=== PATIENT | female | born 1950 | race Caucasian/White ===

== ENCOUNTER 2016-06-19 16:10 | Observation (INO) ==
--- NOTE | 2016-06-19 17:17 | Emergency Department Note ---
Disposition Clinical Impression: Lower extremity edema, Hip pain, left Disposition: Still a Patient Referrals: Nydia Goodrich, DONOR TECHNICIAN [Primary Care Provider] - Forms: ED Satisfaction Letter General Adult HPI - General Chief complaint: ED Extremity Problem,Nontraumatic Stated complaint: left hip pain Time Seen by Provider: 06/19/16 16:24 Source: patient Limitations: no limitations Nursing Notes Reviewed: Yes Vital Signs Reviewed: Yes - History of Present Illness Pain Scale: 10 - Related Data Home Medications Medication Instructions Recorded Confirmed ClonazePAM [Klonopin] 1 mg PO HS 05/09/15 03/27/16 Diltiazem HCl [Diltiazem 24Hr Cd] 120 mg PO QAM 05/09/15 03/27/16 Esomeprazole Magnesium [Nexium] 40 mg PO QAM 05/09/15 03/27/16 Fenofibrate [Tricor] 145 mg PO DAILY 05/09/15 03/27/16 Furosemide [Lasix] 20 mg PO DAILY 05/09/15 03/27/16 Levothyroxine [Synthroid] 25 mcg PO 0630 05/09/15 03/27/16 Lisinopril [Zestril] 5 mg PO DAILY 05/09/15 03/27/16 Potassium Chloride 20 meq PO DAILY 05/09/15 03/27/16 Warfarin [Coumadin] 5 mg PO DAILY 09/04/15 03/27/16 Bupropion HCl [Zyban] 150 mg PO BID 09/21/15 03/27/16 Docusate [Colace] 100 mg PO BID 09/21/15 03/27/16 Duloxetine [Cymbalta] 30 mg PO DAILY 09/21/15 03/27/16 Lovastatin 10 mg PO DAILY 09/21/15 03/27/16 Tizanidine HCl [Zanaflex] 4 mg PO HS 09/21/15 03/27/16 Previous Rx's Medication Instructions Recorded Methocarbamol [Robaxin-750] 750 mg PO TID PRN #21 tablet 09/22/15 Oxycodone HCl/Acetaminophen 1 each PO 4-6XD PRN #15 tablet 03/28/16 [Percocet 5-325 mg Tablet] Allergies Allergy/AdvReac Type Severity Reaction Status Date / Time Sulfa (Sulfonamide Allergy Mild Rash Verified 03/24/16 13:39 Antibiotics) acetaminophen [From Vicodin] Allergy Rash Verified 03/27/16 20:08 atorvastatin [From Lipitor] Allergy Hives Verified 03/24/16 13:39 codeine Allergy Hives Verified 03/24/16 13:39 hydrocodone [From Vicodin] Allergy Rash Verified 03/27/16 20:08 morphine Allergy Hives Verified 03/24/16 13:39 nitrofurantoin Allergy Hives Verified 03/24/16 13:39 [From Macrobid] phenazopyridine Allergy Hives Verified 03/24/16 13:39 [From Pyridium] Past Medical History - Past Medical History Medical history: Reports: atrial fibrillation, COPD, diabetes, hyperlipidemia, hypertension, thyroid disease, TIA Surgical history: Reports: appendectomy, cholecystectomy, ROBERTO/BSO, other Psychiatric history: Reports: anxiety, depression PRESSED OR BLOWN GLASS WORKER history: Reports: no PRESSED OR BLOWN GLASS WORKER history - Social History Smoking Status: Never smoker Smokeless Tobacco Status: No Alcohol use: Reports: none Drug use: Reports: none Physical Exam - General Limitations: no limitations General appearance: alert, in no apparent distress Course Vital Signs Temperature 99.5 F 06/19/16 16:13 Pulse Rate 86 06/19/16 16:13 Respiratory Rate 16 06/19/16 16:13 Blood Pressure 132/55 06/19/16 16:13 O2 Sat by Pulse Oximetry 96 06/19/16 16:13 Temperature 99.5 F 06/19/16 16:13 Pulse Rate 92 06/19/16 18:04 Respiratory Rate 16 06/19/16 18:04 Blood Pressure 138/70 06/19/16 18:04 O2 Sat by Pulse Oximetry 97 06/19/16 18:04 Oxygen Delivery Oxygen Delivery Room Air Medical Decision Making - MDM Narrative Medical decision making narrative: I examined this patient and my medical decision-making was reviewed with the TREE FALLER/PA/Advanced Practice Nurse/Resident Physician. I agree with the documented findings, disposition and treatment plan as described except to the extent set forth below. Patient presents with left hip and groin pain. 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 She says she has circumflex pain going up into her groin. She had no falls. She has had no trauma. She has no calf tenderness. No abdominal pain. Ordering x-rays and if that is negative a CT of her hip check lab work and then reassess. Give her something for pain. She is in agreement with this plan. Hip X-Ray 06/19/16 16:34 IMPRESSION: Left hip arthroplasty without appreciable change. No acute findings identified. D/ / 06/19/2016 17:09:36 Sanchez Melgar MD / Mikaela Banks Interpreting Provider: Sanchez Melgar MD 1830 hrs.: Initial x-rays are negative. She has quite a bit of pain in the area and do not see signs of cellulitis no redness no perineal tenderness or redness. She has no discharge from the vagina she has no bleeding in the area or from the rectum. She has tenderness with log rolling the left leg and thigh. Also some inflammation in that area vertigo had in and get a CT of the area and check lab work on her also. We will most likely sign her out to the evening ER staff for further evaluation and management. Most likely she will need admission. 1835 hrs.: We reviewed her labs her GFR is 42 we have decided to hold off on the contrast CT and it is a noncontrast period and then if later on we decided that she needs contrast we can make sure decision-making with the patient. She is getting IV hydration. Her labs are returning. It appears that she has an inflammatory or infectious process. Waiting on noncontrast CT at this point. We will sign this patient out to the evening ER physician for further management and disposition. - Lab Data Result diagrams: 06/19/16 17:52 06/19/16 17:52 Lab Results 06/19/16 06/19/16 06/19/16 Range/Units 17:52 17:52 17:52 WBC 12.4 H (4.3-11.1) K/mcL RBC 3.90 (3.82-4.97) M/mcL Hgb 11.2 L (11.5-15.4) g/dL Hct 34.7 L (35.3-44.9) % MCV 89.0 (83.0-100.0) fL MCH 28.7 (28.0-33.3) pg MCHC 32.3 (31.6-35.5) g/dL RDW 14.0 (11.5-14.5) % Plt Count 334 (140-400) K/mcL MPV 10.6 (9.4-12.4) fL Immature Gran % 0.6 (0-4) % Seg Neutrophils % 73.3 % Lymphocytes % 15.0 % Monocytes % 8.4 % Eosinophils % 2.1 % Basophils % 0.6 % Neutrophils # 9.1 H (1.6-8.9) K/mcL Lymphocytes # 1.9 (0.6-4.6) K/mcL Monocytes # 1.1 (0.0-1.3) K/mcL Eosinophils # 0.3 (0.0-0.6) K/mcL Basophils # 0.1 (0.0-0.2) K/mcL ESR 44 H (0-15) mm/hr Sodium 140 (136-145) mEq/L Potassium 3.7 (3.5-4.5) mEq/L Chloride 107 (98-109) mEq/L Carbon Dioxide 22 (19-29) mEq/L BUN 23 H (7-20) mg/dL Creatinine 1.26 H (0.57-1.11) mg/dL Est GFR ( Amer) 51 L (> 60) Est GFR (Non-Af Amer) 42 L (> 60) BUN/Creatinine Ratio 18 (6-26) Glucose 93 (70-99) mg/dL Calculated Osmolality 293 (280-300) Uric Acid (2.6-6.0) mg/dL Calcium 9.2 (8.6-10.8) mg/dL C-Reactive Protein 32 H (Less than 5) mg/L 06/19/16 Range/Units 17:52 WBC (4.3-11.1) K/mcL RBC (3.82-4.97) M/mcL Hgb (11.5-15.4) g/dL Hct (35.3-44.9) % MCV (83.0-100.0) fL MCH (28.0-33.3) pg MCHC (31.6-35.5) g/dL RDW (11.5-14.5) % Plt Count (140-400) K/mcL MPV (9.4-12.4) fL Immature Gran % (0-4) % Seg Neutrophils % % Lymphocytes % % Monocytes % % Eosinophils % % Basophils % % Neutrophils # (1.6-8.9) K/mcL Lymphocytes # (0.6-4.6) K/mcL Monocytes # (0.0-1.3) K/mcL Eosinophils # (0.0-0.6) K/mcL Basophils # (0.0-0.2) K/mcL ESR (0-15) mm/hr Sodium (136-145) mEq/L Potassium (3.5-4.5) mEq/L Chloride (98-109) mEq/L Carbon Dioxide (19-29) mEq/L BUN (7-20) mg/dL Creatinine (0.57-1.11) mg/dL Est GFR ( Amer) (> 60) Est GFR (Non-Af Amer) (> 60) BUN/Creatinine Ratio (6-26) Glucose (70-99) mg/dL Calculated Osmolality (280-300) Uric Acid 6.6 H (2.6-6.0) mg/dL Calcium (8.6-10.8) mg/dL C-Reactive Protein (Less than 5) mg/L
[2016-06-19] MEDS ORDERED: *HR* HYDROmorphone (PF) 1 MG/ML SYRINGE IV ONE ×2 (17:37→19:16)
[2016-06-19 18:10] LABS: Basophils # 0.1 K/mcL (0.0-0.2); Basophils % 0.6 %; Eosinophils # 0.3 K/mcL (0.0-0.6); Eosinophils % 2.1 %; Hematocrit 34.7 % (35.3-44.9); Hemoglobin 11.2 g/dL (11.5-15.4); Immature Granulocytes % 0.6 % (0-4); Lymphocytes # 1.9 K/mcL (0.6-4.6); Mean Corpuscular HGB Conc 32.3 g/dL (31.6-35.5); Mean Corpuscular Hemoglobin 28.7 pg (28.0-33.3); Mean Platelet Volume 10.6 fL (9.4-12.4); Monocytes # 1.1 K/mcL (0.0-1.3); Monocytes % 8.4 %; Neutrophils # 9.1 K/mcL (1.6-8.9); Platelet Count 334 K/mcL (140-400); Segmented Neutrophils % 73.3 %
--- NOTE | 2016-06-19 18:16 | Emergency Department Note ---
Disposition Clinical Impression: Lower extremity edema, Hip pain, left Disposition: Still a Patient Referrals: Nydia Goodrich, DEREK [Primary Care Provider] - Forms: ED Satisfaction Letter Extremity Problem HPI - General Chief complaint: ED Extremity Problem,Nontraumatic Stated complaint: left hip pain Time Seen by Provider: 06/19/16 16:24 Source: patient Limitations: no limitations Nursing Notes Reviewed: Yes Vital Signs Reviewed: Yes - History of Present Illness HPI Narrative: Patient here for evaluation of left hip pain. Patient has a previous history of hip replacement by Dr. Yeager on the left. Patient has had swelling on that side intermittently since the replacement. Patient awoke today with severe hip pain. Patient states no recent trauma. No recent URI. Patient with inability to move leg or bear weight. Patient's right lower leg is edematous with concern for erythema. Patient is unconcerned with this leg as she states it is like this in the past. Patient does have DVT on that side and is taking Coumadin. Pain Scale: 8 - Related Data Home Medications Medication Instructions Recorded Confirmed ClonazePAM [Klonopin] 1 mg PO HS 05/09/15 03/27/16 Diltiazem HCl [Diltiazem 24Hr Cd] 120 mg PO QAM 05/09/15 03/27/16 Esomeprazole Magnesium [Nexium] 40 mg PO QAM 05/09/15 03/27/16 Fenofibrate [Tricor] 145 mg PO DAILY 05/09/15 03/27/16 Furosemide [Lasix] 20 mg PO DAILY 05/09/15 03/27/16 Levothyroxine [Synthroid] 25 mcg PO 0630 05/09/15 03/27/16 Lisinopril [Zestril] 5 mg PO DAILY 05/09/15 03/27/16 Potassium Chloride 20 meq PO DAILY 05/09/15 03/27/16 Warfarin [Coumadin] 5 mg PO DAILY 09/04/15 03/27/16 Bupropion HCl [Zyban] 150 mg PO BID 09/21/15 03/27/16 Docusate [Colace] 100 mg PO BID 09/21/15 03/27/16 Duloxetine [Cymbalta] 30 mg PO DAILY 09/21/15 03/27/16 Lovastatin 10 mg PO DAILY 09/21/15 03/27/16 Tizanidine HCl [Zanaflex] 4 mg PO HS 09/21/15 03/27/16 Previous Rx's Medication Instructions Recorded Methocarbamol [Robaxin-750] 750 mg PO TID PRN #21 tablet 09/22/15 Oxycodone HCl/Acetaminophen 1 each PO 4-6XD PRN #15 tablet 03/28/16 [Percocet 5-325 mg Tablet] Allergies Allergy/AdvReac Type Severity Reaction Status Date / Time Sulfa (Sulfonamide Allergy Mild Rash Verified 03/24/16 13:39 Antibiotics) acetaminophen [From Vicodin] Allergy Rash Verified 03/27/16 20:08 atorvastatin [From Lipitor] Allergy Hives Verified 03/24/16 13:39 codeine Allergy Hives Verified 03/24/16 13:39 hydrocodone [From Vicodin] Allergy Rash Verified 03/27/16 20:08 morphine Allergy Hives Verified 03/24/16 13:39 nitrofurantoin Allergy Hives Verified 03/24/16 13:39 [From Macrobid] phenazopyridine Allergy Hives Verified 03/24/16 13:39 [From Pyridium] Constitutional: Denies: fever, chills Eyes: Denies: eye pain ENT ED: Denies: ear pain Cardiovascular: Denies: chest pain Respiratory: Denies: cough, dyspnea Gastrointestinal: Denies: abdominal pain, nausea Genitourinary: Denies: urgency, dysuria Musculoskeletal: Reports: arthralgia (left hip). Denies: back pain Integumentary: Reports: lesions (right leg). Denies: rash, abrasion Neurological: Reports: weakness. Denies: headache Psychiatric: Denies: anxiety Endocrine: Denies: fatigue Past Medical History - Past Medical History Medical history: Reports: atrial fibrillation, COPD, diabetes, hyperlipidemia, hypertension, thyroid disease, TIA Surgical history: Reports: appendectomy, cholecystectomy, ROBERTO/BSO, other Psychiatric history: Reports: anxiety, depression HEALTH EQUIPMENT SERVICER history: Reports: no HEALTH EQUIPMENT SERVICER history - Social History Smoking Status: Never smoker Smokeless Tobacco Status: No Alcohol use: Reports: none Drug use: Reports: none Physical Exam - General Limitations: no limitations General appearance: alert, in no apparent distress - Head Head exam: atraumatic, normocephalic - Eye Eye exam: Present: normal appearance, PERRL - ENT ENT exam: normal exam, normal oropharynx - Neck Neck exam: Present: normal inspection - Chest Chest inspection: Present: normal inspection, symmetric chest wall rise - Respiratory Respiratory exam: Absent: respiratory distress - Abdominal Exam Abdominal exam: Present: soft, Non-Tender. Absent: guarding, rebound, rigidity - Extremities Exam Extremities exam: Present: other (Left leg with swelling in the hip and thigh. Patient with significant tenderness to palpation of both the inner groin and the greater trochanter. Patient has pain with log roll. Patient has pain with any passive or active range of motion. Right leg lower aspect with edema; concern for erythema and known DVT) Course - Reevaluation(s) Reevaluation #1: Patient signed out to the night team. Vital Signs Temperature 99.5 F 06/19/16 16:13 Pulse Rate 86 06/19/16 16:13 Respiratory Rate 16 06/19/16 16:13 Blood Pressure 132/55 06/19/16 16:13 O2 Sat by Pulse Oximetry 96 06/19/16 16:13 Temperature 99.5 F 06/19/16 16:13 Pulse Rate 92 06/19/16 18:04 Respiratory Rate 16 06/19/16 18:04 Blood Pressure 138/70 06/19/16 18:04 O2 Sat by Pulse Oximetry 97 06/19/16 18:04 Oxygen Delivery Oxygen Delivery Room Air Extremity Problem, Nontraumati - Lab Data Result diagrams: 06/19/16 17:52 06/19/16 17:52 Lab Results 06/19/16 06/19/16 06/19/16 Range/Units 17:52 17:52 17:52 WBC 12.4 H (4.3-11.1) K/mcL RBC 3.90 (3.82-4.97) M/mcL Hgb 11.2 L (11.5-15.4) g/dL Hct 34.7 L (35.3-44.9) % MCV 89.0 (83.0-100.0) fL MCH 28.7 (28.0-33.3) pg MCHC 32.3 (31.6-35.5) g/dL RDW 14.0 (11.5-14.5) % Plt Count 334 (140-400) K/mcL MPV 10.6 (9.4-12.4) fL Immature Gran % 0.6 (0-4) % Seg Neutrophils % 73.3 % Lymphocytes % 15.0 % Monocytes % 8.4 % Eosinophils % 2.1 % Basophils % 0.6 % Neutrophils # 9.1 H (1.6-8.9) K/mcL Lymphocytes # 1.9 (0.6-4.6) K/mcL Monocytes # 1.1 (0.0-1.3) K/mcL Eosinophils # 0.3 (0.0-0.6) K/mcL Basophils # 0.1 (0.0-0.2) K/mcL ESR 44 H (0-15) mm/hr Sodium 140 (136-145) mEq/L Potassium 3.7 (3.5-4.5) mEq/L Chloride 107 (98-109) mEq/L Carbon Dioxide 22 (19-29) mEq/L BUN 23 H (7-20) mg/dL Creatinine 1.26 H (0.57-1.11) mg/dL Est GFR ( Amer) 51 L (> 60) Est GFR (Non-Af Amer) 42 L (> 60) BUN/Creatinine Ratio 18 (6-26) Glucose 93 (70-99) mg/dL Calculated Osmolality 293 (280-300) Uric Acid (2.6-6.0) mg/dL Calcium 9.2 (8.6-10.8) mg/dL C-Reactive Protein 32 H (Less than 5) mg/L 06/19/16 Range/Units 17:52 WBC (4.3-11.1) K/mcL RBC (3.82-4.97) M/mcL Hgb (11.5-15.4) g/dL Hct (35.3-44.9) % MCV (83.0-100.0) fL MCH (28.0-33.3) pg MCHC (31.6-35.5) g/dL RDW (11.5-14.5) % Plt Count (140-400) K/mcL MPV (9.4-12.4) fL Immature Gran % (0-4) % Seg Neutrophils % % Lymphocytes % % Monocytes % % Eosinophils % % Basophils % % Neutrophils # (1.6-8.9) K/mcL Lymphocytes # (0.6-4.6) K/mcL Monocytes # (0.0-1.3) K/mcL Eosinophils # (0.0-0.6) K/mcL Basophils # (0.0-0.2) K/mcL ESR (0-15) mm/hr Sodium (136-145) mEq/L Potassium (3.5-4.5) mEq/L Chloride (98-109) mEq/L Carbon Dioxide (19-29) mEq/L BUN (7-20) mg/dL Creatinine (0.57-1.11) mg/dL Est GFR ( Amer) (> 60) Est GFR (Non-Af Amer) (> 60) BUN/Creatinine Ratio (6-26) Glucose (70-99) mg/dL Calculated Osmolality (280-300) Uric Acid 6.6 H (2.6-6.0) mg/dL Calcium (8.6-10.8) mg/dL C-Reactive Protein (Less than 5) mg/L
[2016-06-19 18:22] LABS: Calcium 9.2 mg/dL (8.6-10.8); Potassium 3.7 mEq/L (3.5-4.5)
--- NOTE | 2016-06-19 19:17 | Emergency Department Note ---
Disposition Clinical Impression: Lower extremity edema, Hip pain, left Disposition: Still a Patient Referrals: Nydia Goodrich, SKI PRODUCTION SUPERVISOR [Primary Care Provider] - Forms: ED Satisfaction Letter General Adult HPI - General Chief complaint: ED Extremity Problem,Nontraumatic Stated complaint: left hip pain Time Seen by Provider: 06/19/16 16:24 Source: patient Limitations: no limitations - History of Present Illness Pain Scale: 8 - Related Data Home Medications Medication Instructions Recorded Confirmed ClonazePAM [Klonopin] 1 mg PO HS 05/09/15 03/27/16 Diltiazem HCl [Diltiazem 24Hr Cd] 120 mg PO QAM 05/09/15 03/27/16 Esomeprazole Magnesium [Nexium] 40 mg PO QAM 05/09/15 03/27/16 Fenofibrate [Tricor] 145 mg PO DAILY 05/09/15 03/27/16 Furosemide [Lasix] 20 mg PO DAILY 05/09/15 03/27/16 Levothyroxine [Synthroid] 25 mcg PO 0630 05/09/15 03/27/16 Lisinopril [Zestril] 5 mg PO DAILY 05/09/15 03/27/16 Potassium Chloride 20 meq PO DAILY 05/09/15 03/27/16 Warfarin [Coumadin] 5 mg PO DAILY 09/04/15 03/27/16 Bupropion HCl [Zyban] 150 mg PO BID 09/21/15 03/27/16 Docusate [Colace] 100 mg PO BID 09/21/15 03/27/16 Duloxetine [Cymbalta] 30 mg PO DAILY 09/21/15 03/27/16 Lovastatin 10 mg PO DAILY 09/21/15 03/27/16 Tizanidine HCl [Zanaflex] 4 mg PO HS 09/21/15 03/27/16 Previous Rx's Medication Instructions Recorded Methocarbamol [Robaxin-750] 750 mg PO TID PRN #21 tablet 09/22/15 Oxycodone HCl/Acetaminophen 1 each PO 4-6XD PRN #15 tablet 03/28/16 [Percocet 5-325 mg Tablet] Allergies Allergy/AdvReac Type Severity Reaction Status Date / Time Sulfa (Sulfonamide Allergy Mild Rash Verified 03/24/16 13:39 Antibiotics) acetaminophen [From Vicodin] Allergy Rash Verified 03/27/16 20:08 atorvastatin [From Lipitor] Allergy Hives Verified 03/24/16 13:39 codeine Allergy Hives Verified 03/24/16 13:39 hydrocodone [From Vicodin] Allergy Rash Verified 03/27/16 20:08 morphine Allergy Hives Verified 03/24/16 13:39 nitrofurantoin Allergy Hives Verified 03/24/16 13:39 [From Macrobid] phenazopyridine Allergy Hives Verified 03/24/16 13:39 [From Pyridium] Constitutional: Denies: fever, chills Eyes: Denies: eye pain ENT ED: Denies: ear pain Cardiovascular: Denies: chest pain Respiratory: Denies: cough, dyspnea Gastrointestinal: Denies: abdominal pain, nausea Genitourinary: Denies: urgency, dysuria Musculoskeletal: Reports: arthralgia (left hip). Denies: back pain Integumentary: Reports: lesions (right leg). Denies: rash, abrasion Neurological: Reports: weakness. Denies: headache Psychiatric: Denies: anxiety Endocrine: Denies: fatigue Past Medical History - Past Medical History Medical history: Reports: atrial fibrillation, COPD, diabetes, hyperlipidemia, hypertension, thyroid disease, TIA Surgical history: Reports: appendectomy, cholecystectomy, ROBERTO/BSO, other Psychiatric history: Reports: anxiety, depression ANESTHESIOLOGY MEDICAL DOCTOR history: Reports: no ANESTHESIOLOGY MEDICAL DOCTOR history - Social History Smoking Status: Never smoker Smokeless Tobacco Status: No Alcohol use: Reports: none Drug use: Reports: none Physical Exam - General Limitations: no limitations General appearance: alert, in no apparent distress Course Vital Signs Temperature 99.5 F 06/19/16 16:13 Pulse Rate 86 06/19/16 16:13 Respiratory Rate 16 06/19/16 16:13 Blood Pressure 132/55 06/19/16 16:13 O2 Sat by Pulse Oximetry 96 06/19/16 16:13 Temperature 99.5 F 06/19/16 16:13 Pulse Rate 94 06/19/16 19:32 Respiratory Rate 16 06/19/16 19:32 Blood Pressure 162/73 06/19/16 19:32 O2 Sat by Pulse Oximetry 97 06/19/16 19:32 Oxygen Delivery Oxygen Delivery Nasal Cannula Medical Decision Making - Lab Data Result diagrams: 06/19/16 17:52 06/19/16 17:52 Lab Results 06/19/16 06/19/16 06/19/16 Range/Units 17:52 17:52 17:52 WBC 12.4 H (4.3-11.1) K/mcL RBC 3.90 (3.82-4.97) M/mcL Hgb 11.2 L (11.5-15.4) g/dL Hct 34.7 L (35.3-44.9) % MCV 89.0 (83.0-100.0) fL MCH 28.7 (28.0-33.3) pg MCHC 32.3 (31.6-35.5) g/dL RDW 14.0 (11.5-14.5) % Plt Count 334 (140-400) K/mcL MPV 10.6 (9.4-12.4) fL Immature Gran % 0.6 (0-4) % Seg Neutrophils % 73.3 % Lymphocytes % 15.0 % Monocytes % 8.4 % Eosinophils % 2.1 % Basophils % 0.6 % Neutrophils # 9.1 H (1.6-8.9) K/mcL Lymphocytes # 1.9 (0.6-4.6) K/mcL Monocytes # 1.1 (0.0-1.3) K/mcL Eosinophils # 0.3 (0.0-0.6) K/mcL Basophils # 0.1 (0.0-0.2) K/mcL ESR 44 H (0-15) mm/hr Sodium 140 (136-145) mEq/L Potassium 3.7 (3.5-4.5) mEq/L Chloride 107 (98-109) mEq/L Carbon Dioxide 22 (19-29) mEq/L BUN 23 H (7-20) mg/dL Creatinine 1.26 H (0.57-1.11) mg/dL Est GFR ( Amer) 51 L (> 60) Est GFR (Non-Af Amer) 42 L (> 60) BUN/Creatinine Ratio 18 (6-26) Glucose 93 (70-99) mg/dL Calculated Osmolality 293 (280-300) Uric Acid (2.6-6.0) mg/dL Calcium 9.2 (8.6-10.8) mg/dL C-Reactive Protein 32 H (Less than 5) mg/L 06/19/16 Range/Units 17:52 WBC (4.3-11.1) K/mcL RBC (3.82-4.97) M/mcL Hgb (11.5-15.4) g/dL Hct (35.3-44.9) % MCV (83.0-100.0) fL MCH (28.0-33.3) pg MCHC (31.6-35.5) g/dL RDW (11.5-14.5) % Plt Count (140-400) K/mcL MPV (9.4-12.4) fL Immature Gran % (0-4) % Seg Neutrophils % % Lymphocytes % % Monocytes % % Eosinophils % % Basophils % % Neutrophils # (1.6-8.9) K/mcL Lymphocytes # (0.6-4.6) K/mcL Monocytes # (0.0-1.3) K/mcL Eosinophils # (0.0-0.6) K/mcL Basophils # (0.0-0.2) K/mcL ESR (0-15) mm/hr Sodium (136-145) mEq/L Potassium (3.5-4.5) mEq/L Chloride (98-109) mEq/L Carbon Dioxide (19-29) mEq/L BUN (7-20) mg/dL Creatinine (0.57-1.11) mg/dL Est GFR ( Amer) (> 60) Est GFR (Non-Af Amer) (> 60) BUN/Creatinine Ratio (6-26) Glucose (70-99) mg/dL Calculated Osmolality (280-300) Uric Acid 6.6 H (2.6-6.0) mg/dL Calcium (8.6-10.8) mg/dL C-Reactive Protein (Less than 5) mg/L Attestation Statement - Attestation Attestation: Care assumed from Dr. Fishman at [address] left hip. Patient presented with atraumatic left hip pain. History of left hip replacement in 2011. She is resting comfortably at the time of my exam but does report increased pain after her imaging study. Labs reviewed by me 19:40: CT resulted. No acute radiographic abnormality. I did discuss the case with Dr. Yeager, the patient's orthopedist. It was mutually agreed to admit the patient for pain control with his orthopedic service to evaluate. I will request admission to the medicine service
[2016-06-19] MEDS ORDERED: Acetaminophen 325 MG TABLET PO PRN (20:55)
[2016-06-19] MEDS ORDERED: Naloxone 0.4 MG/ML INJ IVP PRN (20:55)
[2016-06-19] MEDS ORDERED: D5% in Water 1,000 ML IV PRN (21:33)
[2016-06-19] MEDS ORDERED: *HR* Dextrose 50 % in Water (Syg) 50 ML SYRINGE IVP PRN (21:33)
[2016-06-19] MEDS ORDERED: Dextrose Gel 15 GM PO PRN ×2 (21:33)
--- NOTE | 2016-06-19 21:43 | Internal Med History&Physical ---
Date of Encounter: 06/19/16 Time of Encounter: 21:37 Assessment and Plan (1) Hip pain, left Current visit: Yes Status: Acute History of left hip replacement [address] Yeager. Unable to bear weight or walk. Increased pain with movement. Tenderness to palpation. Hip Xray with no acute finding. CT left lower extremity with no acute osseous abnormality. Dr. Yeager in orthopedics consulted. Will give IV dilaudid PRN for pain control. continous pulse oximetry. titrate O2 for O2 sat > 92%. Narcan PRN for respiratory depression. (2) COPD (chronic obstructive pulmonary disease) Current visit: Yes Status: Chronic Wears O2 at night. titrate O2 to maintain O2 sat > 92%. Duonebs QID PRN for wheezing or dyspnea. Qualifiers: COPD type: chronic bronchitis Chronic bronchitis type: unspecified Qualified Code(s): J42 - Unspecified chronic bronchitis (3) Paroxysmal atrial fibrillation Current visit: Yes Status: Acute denies any chest pain or palpitations. Heart with regular rate and rhythm. She is on coumadin for anticoagulation and her rate controlled. (4) Anticoagulated on Coumadin Current visit: Yes Status: Acute History of multiple DVTs. No signs/or symptoms of bleeding or clotting. Continue home dose of coumadin. Check PT/INR. (5) Recurrent deep vein thrombosis (DVT) Current visit: No Status: Acute Chronic DVT in RLE. RLE with erythema and edema. Anticoagulated on coumadin. Continue home dose of coumadin and check PT/INR (6) DVT prophylaxis Current visit: Yes Status: Acute anti-embolic stockings maintained on coumadin, no need to add additional pharmacologic prophylaxis. Internal Medicine - H&P: HPI Admitted From: Emergency Dept Plans for Post Hospital Care: Home History of present illness: Ms. Damon is a 66 year old female with history of paroxysmal afib, multiple DVTs , type 2 DM, COPD and left knee replacement in 2011 who presented to the ED today with left hip pain and inability to walk or bear weight. She reports her hip felt "sore" with activity yesterday, and when she woke up this morning, the pain was severe, and she could not walk or bear weight. She describes the pain as an "electric shock". It is exacerbated by movement and palpation, and has been somewhat relieved by the pain medication given today. Xray of the hip showed left hip arthroplasty without appreciable change, no acute finding. CT of the hip showed no acute osseous abnormality, s/p left total hip arthoplasty without complication, chronic fragmentation of greater trochanter unchanged. Dr. Yeager is her orthopedic surgeon and was consulted and will see her in the morning. Other work up in the ED showed WBC slightly elevated to 12.4. Elevated CRP to 32 and ESR to 44. On exam, she is alert and oriented x 3, in no distress, satting 90-95% on room air. Her RLE is edematous and erythematous , she reports this is chronic from her known dvt. Her Left hip has increased pain with abduction and with palpation. No erythema, edema or warmth. Past Med Surg Social Fam HX - Past Medical History Medical history: atrial fibrillation, COPD, DVT (chronic RLE, RUE), diabetes, hyperlipidemia, hypertension, renal disease (CKD 3), thyroid disease, TIA Psychiatric history: anxiety, depression - Past Surgical History Surgical History: appendectomy, cholecystectomy, hip replacement (left), orthopedic, other (right shoulder), ROBERTO/BSO, other - Social History Smoking Status: Never smoker Smokeless Tobacco Status: No Alcohol use: none Drug use: none - Family History Mother Living Status: Cause of : OR Father Living Status: Cause of : OR Internal Medicine - H&P: Meds ClonazePAM [Klonopin] 1 mg PO HS 05/09/15 [History] Diltiazem HCl [Diltiazem 24Hr Cd] 120 mg PO QAM 05/09/15 [History] Esomeprazole Magnesium [Nexium] 40 mg PO QAM 05/09/15 [History] Fenofibrate [Tricor] 145 mg PO DAILY 05/09/15 [History] Furosemide [Lasix] 20 mg PO DAILY 05/09/15 [History] Levothyroxine [Synthroid] 25 mcg PO 0630 05/09/15 [History] Lisinopril [Zestril] 5 mg PO DAILY 05/09/15 [History] Potassium Chloride 20 meq PO DAILY 05/09/15 [History] Warfarin [Coumadin] 5 mg PO DAILY 09/04/15 [History] Bupropion HCl [Zyban] 150 mg PO BID 09/21/15 [History] Docusate [Colace] 100 mg PO BID 09/21/15 [History] Duloxetine [Cymbalta] 30 mg PO DAILY 09/21/15 [History] Lovastatin 10 mg PO HS 09/21/15 [History] Tizanidine HCl [Zanaflex] 4 mg PO HS 09/21/15 [History] Warfarin [Coumadin] 2.5 mg PO QWEEK 06/19/16 [History] Allergies Sulfa (Sulfonamide Antibiotics) Allergy (Mild, Verified 03/24/16 13:39) Rash hives acetaminophen [From Vicodin] Allergy (Verified 03/27/16 20:08) Rash atorvastatin [From Lipitor] Allergy (Verified 03/24/16 13:39) Hives codeine Allergy (Verified 03/24/16 13:39) Hives hydrocodone [From Vicodin] Allergy (Verified 03/27/16 20:08) Rash morphine Allergy (Verified 03/24/16 13:39) Hives nitrofurantoin [From Macrobid] Allergy (Verified 03/24/16 13:39) Hives phenazopyridine [From Pyridium] Allergy (Verified 03/24/16 13:39) Hives All Systems PM: A 10-system review of systems was performed and is negative for pertinent findings except as documented above in the HPI. - Constitutional Constitutional: no chills, no fever(s), no night sweats - EENT Eyes: no change in vision, no discharge, no pain, no photophobia Nose, mouth and throat: no dysphagia, no nasal discharge, no neck pain, no sore throat - Cardiovascular Cardiovascular ROS IM: no chest pain, no diaphoresis, no dyspnea, no lightheadedness, no palpitations, no syncope - Respiratory Respiratory: no cough, no dyspnea, no wheezing, no excessive phlegm production - Gastrointestinal Gastrointestinal: no abdominal pain, no diarrhea, no hematemesis, no hematochezia, no melena, no nausea, no vomiting - Genitourinary Genitourinary: no change in urinary stream, no dysuria, no flank pain, no hematuria - Musculoskeletal Musculoskeletal ROS IM: joint swelling, limited range of motion, no numbness, no tingling Additional comments: right hip pain - Integumentary Integumentary IM: erythema (LLE), no rash, no unusual bruising - Neurological Neurological ROS: no confusion, no convulsions, no focal weakness, no numbness, no tingling, no tremor(s) - Hematologic/Lymphatic Hematologic/Lymphatic: no easy bruising - Constitutional Vitals: Temp Pulse Resp BP Pulse Ox 98.9 F 85 16 121/55 93 L 06/19/16 21:36 06/19/16 21:36 06/19/16 21:36 06/19/16 21:36 06/19/16 21:36 General appearance: Present: A&O X 3, no acute distress, obese - Head Head exam: Present: atraumatic, normocephalic - Eye Eye exam: Present: PERRL, conjuntiva pink, sclera anicteric Pupils: Present: PERRL - Neck Neck exam general surgery: Present: supple, trachea midline. Absent: lymphadenopathy - Respiratory Respiratory exam: Present: CTAB. Absent: accessory muscle use, rales, rhonchi, wheezes - Cardiovascular Cardiovascular exam: Present: RRR, +S1, +S2. Absent: diastolic murmur, gallop, rubs, systolic murmur - GI/Abdominal GI/Abdominal exam: Present: normal bowel sounds, soft, no peritoneal signs. Absent: distended, tenderness - Extremities Exam Extremities exam: Present: calf tenderness (right), joint swelling, normal capillary refill, pedal edema (right), warm, radial pulses palpable and symetrical. Absent: cyanotic - Expanded Lower Extremities Exam Hip exam: Present: tenderness (right). Absent: ecchymosis, full ROM (right) Neuro vascular tendon exam: Present: no vascular compromise. Absent: abnormal cap refill, pallor, pulse deficit, sensory deficit - Neurological Exam Neurological exam: Present: CN II-XII intact, oriented X3, no focal deficits. Absent: facial droop, speech deficit - Skin Skin exam: Present: dry, intact Internal Med - H&P Results - Labs CBC & Chem 7: 06/19/16 17:52 06/19/16 17:52
[2016-06-19 21:52] LABS: Prothrombin Time 21.7 Seconds (9.4-12.1)
[2016-06-19 21:55] LABS: Activated Partial Thrombo Time 44.7 Seconds (26.0-36.0)
[2016-06-19] MEDS: Insulin LISPRO 300 UNITS/3 ML VIAL SQ SCH (22:23)
[2016-06-19] MEDS ORDERED: BuPROPion SR (12 HR) 150 MG TABLET PO SCH (23:00)
[2016-06-19] MEDS ORDERED: clonazePAM 1 MG TABLET PO SCH (23:00)
[2016-06-19] MEDS: tiZANidine 4 MG TABLET PO SCH (23:49)
[2016-06-19] MEDS: *HR* HYDROmorphone (PF) 1 MG/ML SYRINGE IVP PRN (23:50)
[2016-06-19] MEDS: BuPROPion SR (12 HR) 150 MG TABLET PO SCH (23:51)
[2016-06-19] MEDS: clonazePAM 1 MG TABLET PO SCH (23:51)
[2016-06-20] MEDS: *HR* HYDROmorphone (PF) 1 MG/ML SYRINGE IVP PRN ×5 (04:00→20:32)
[2016-06-20 05:16] LABS: Basophils # 0.1 K/mcL (0.0-0.2); Basophils % 0.7 %; Eosinophils # 0.3 K/mcL (0.0-0.6); Eosinophils % 3.5 %; Hematocrit 34.6 % (35.3-44.9); Hemoglobin 10.9 g/dL (11.5-15.4); Immature Granulocytes % 0.4 % (0-4); Lymphocytes # 1.9 K/mcL (0.6-4.6); Lymphocytes % 23.2 %; Mean Corpuscular HGB Conc 31.5 g/dL (31.6-35.5); Mean Corpuscular Hemoglobin 28.6 pg (28.0-33.3); Mean Corpuscular Volume 90.8 fL (83.0-100.0); Mean Platelet Volume 10.6 fL (9.4-12.4); Monocytes % 11.4 %; Neutrophils # 5.1 K/mcL (1.6-8.9); Platelet Count 315 K/mcL (140-400); Red Blood Count 3.81 M/mcL (3.82-4.97); Red Cell Distribution Width 14.2 % (11.5-14.5); Segmented Neutrophils % 60.8 %
[2016-06-20 05:36] LABS: Potassium 3.5 mEq/L (3.5-4.5)
[2016-06-20] MEDS: Levothyroxine 25 MCG TABLET PO SCH (06:08)
[2016-06-20] MEDS: Insulin LISPRO 300 UNITS/3 ML VIAL SQ SCH ×4 (08:47→23:00)
[2016-06-20] MEDS: BuPROPion SR (12 HR) 150 MG TABLET PO SCH ×2 (08:53→20:02)
[2016-06-20] MEDS: Fenofibrate 54 MG TABLET PO SCH (08:53)
[2016-06-20] MEDS: Furosemide 20 MG TABLET PO SCH (08:53)
[2016-06-20] MEDS: Diltiazem CD (24hr) 120 MG CAPSULE PO SCH (08:53)
--- NOTE | 2016-06-20 09:27 | Orthopedic Consult Note ---
Date of Encounter: 06/20/16 Time of Encounter: 09:25 Assessment and Plan (1) Hip pain, left Current Visit: Yes Status: Eliezer Goncalves is a 66-year-old female with a prior left total hip arthroplasty in 2011 with new onset of pain and elevated labs. Exam localizes to the left hip joint. At this point there is concern for a possible septic process in the left hip joint, and therefore my recommendation was for left hip aspiration by the interventional radiologist. Today there is no one recreation director for interventional radiology, and therefore we will plan for this tomorrow. She can eat today, but nothing by mouth after midnight in case she requires washout of the left hip. Hold off on antibiotics for now as long as she is afebrile and her vitals are stable to improve the culture yield from the aspiration. History of Present Illness Chief complaint: Left hip pain HPI: Ms. Damon is a 66 year old female who is post left total hip arthroplasty back in 2011. She had a good result. Yesterday she started having new onset left hip and groin pain which is quite significant and affecting her ability to walk. She denies any new injuries. Currently she says the pain is about an 8 out of 10. She describes the pain as throbbing. She denies any numbness, tingling, or any other associated signs or symptoms. She does have chronic swelling of the left lower extremity and is on warfarin for a right lower extremity DVT. She also has Afib. Other than movement, which exacerbates the pain, there is no other modifying factors. Past Med Surg Social Fam HX - Past Medical History Medical history: atrial fibrillation, COPD, DVT (chronic RLE, RUE), diabetes, hyperlipidemia, hypertension, renal disease (CKD 3), thyroid disease, TIA Psychiatric history: anxiety, depression - Past Surgical History Surgical History: appendectomy, cholecystectomy, hip replacement (left), orthopedic, other (right shoulder), ROBERTO/BSO, other - Social History Smoking Status: Never smoker Smokeless Tobacco Status: No Alcohol use: none Drug use: none - Family History Father Living Status: Cause of : [place] Hx Family Cardiac Disorders: Yes Mother Living Status: Cause of : [place] Medications and Allergies ClonazePAM [Klonopin] 1 mg PO HS 05/09/15 [History] Diltiazem HCl [Diltiazem 24Hr Cd] 120 mg PO QAM 05/09/15 [History] Esomeprazole Magnesium [Nexium] 40 mg PO QAM 05/09/15 [History] Fenofibrate [Tricor] 145 mg PO DAILY 05/09/15 [History] Furosemide [Lasix] 20 mg PO DAILY 05/09/15 [History] Levothyroxine [Synthroid] 25 mcg PO 0630 05/09/15 [History] Lisinopril [Zestril] 5 mg PO DAILY 05/09/15 [History] Potassium Chloride 20 meq PO DAILY 05/09/15 [History] Warfarin [Coumadin] 5 mg PO DAILY 09/04/15 [History] Bupropion HCl [Zyban] 150 mg PO BID 09/21/15 [History] Docusate [Colace] 100 mg PO BID 09/21/15 [History] Duloxetine [Cymbalta] 30 mg PO DAILY 09/21/15 [History] Lovastatin 10 mg PO HS 09/21/15 [History] Tizanidine HCl [Zanaflex] 4 mg PO HS 09/21/15 [History] Warfarin [Coumadin] 2.5 mg PO QWEEK 06/19/16 [History] Allergies Sulfa (Sulfonamide Antibiotics) Allergy (Mild, Verified 03/24/16 13:39) Rash hives acetaminophen [From Vicodin] Allergy (Verified 03/27/16 20:08) Rash atorvastatin [From Lipitor] Allergy (Verified 03/24/16 13:39) Hives codeine Allergy (Verified 03/24/16 13:39) Hives hydrocodone [From Vicodin] Allergy (Verified 03/27/16 20:08) Rash morphine Allergy (Verified 03/24/16 13:39) Hives nitrofurantoin [From Macrobid] Allergy (Verified 03/24/16 13:39) Hives phenazopyridine [From Pyridium] Allergy (Verified 03/24/16 13:39) Hives All Systems Reviewed: Constitutional and musculoskeletal systems were reviewed and are negative unless otherwise stated in history of present illness. Physical Exam - Constitutional Vitals: Temp Pulse Resp BP Pulse Ox 98.7 F 78 16 118/54 98 06/20/16 07:00 06/20/16 07:00 06/20/16 07:00 06/20/16 07:00 06/20/16 07:00 Constitutional -Vitals reviewed -The patient is well developed and well nourished. -Mood is pleasant. -The patient is well groomed. Psychiatric -The patient is fully alert and oriented x 3. Respiratory: -Respiratory effort normal Abdomen: -Soft abdomen -Non tender -Non distended: Left upper extremity: -No deformities. The overlying skin is intact. No obvious signs of acute trauma. -No tenderness to palpation throughout. -No significant pain with passive motion of the shoulder, elbow, wrist, and fingers within the limits of the bed. -Able to make an "OK" sign, cross the index and long fingers, and extend the thumb. -Sensation grossly intact to light touch throughout the median, radial, and ulnar distributions. -Radial pulse is present; Fingers have good capillary refill. Right upper extremity: -No deformities. The overlying skin is intact. No obvious signs of acute trauma. -No tenderness to palpation throughout. -No significant pain with passive motion of the shoulder, elbow, wrist, and fingers within the limits of the bed. -Able to make an "OK" sign, cross the index and long fingers, and extend the thumb. -Sensation grossly intact to light touch throughout the median, radial, and ulnar distributions. -Radial pulse is present; Fingers have good capillary refill. Left lower extremity: -Well-healed left total hip incision -No deformities. The overlying skin is intact. No obvious signs of acute trauma. -Tenderness to the left groin. -Significant pain with logroll and flexion of the left hip. -No pain with passive motion of the knee, ankle, and toes within the limits of the bed. -No pain with axial loading of the thigh. -Able to dorsiflex and plantarflex the ankle and toes. -Sensation is grossly intact to light touch throughout the sural, saphenous, superficial peroneal, and deep peroneal distributions. -Toes have good capillary refill. Right lower extremity: -No deformities. The overlying skin is intact. No obvious signs of acute trauma. -No tenderness to palpation throughout. -No pain with passive motion of the hip, knee, ankle, and toes within the limits of the bed. -No pain with axial loading of the thigh. -Able to dorsiflex and plantarflex the ankle and toes. -Sensation is grossly intact to light touch throughout the sural, saphenous, superficial peroneal, and deep peroneal distributions. -Toes have good capillary refill. Results - Labs Result Diagrams: 06/20/16 04:18 06/20/16 04:18 Labs: Abnormal lab results RBC 3.81 M/mcL (3.82-4.97) L 06/20/16 04:18 Hgb 10.9 g/dL (11.5-15.4) L 06/20/16 04:18 Hct 34.6 % (35.3-44.9) L 06/20/16 04:18 MCHC 31.5 g/dL (31.6-35.5) L 06/20/16 04:18 ESR 44 mm/hr (0-15) H 06/19/16 17:52 PT 21.7 Seconds (9.4-12.1) H 06/19/16 21:41 APTT 44.7 Seconds (26.0-36.0) H 06/19/16 21:41 BUN 21 mg/dL (7-20) H 06/20/16 04:18 Creatinine 1.18 mg/dL (0.57-1.11) H 06/20/16 04:18 Est GFR ( Amer) 55 (> 60) L 06/20/16 04:18 Est GFR (Non-Af Amer) 46 (> 60) L 06/20/16 04:18 Uric Acid 6.6 mg/dL (2.6-6.0) H 06/19/16 17:52 C-Reactive Protein 32 mg/L (Less than 5) H 06/19/16 17:52 H & H 06/20/16 Range/Units 04:18 Hgb 10.9 L (11.5-15.4) g/dL Hct 34.6 L (35.3-44.9) % All other labs normal. - Diagnostic results Hip CT: image reviewed (CT of the left hip shows the left total hip arthroplasty in good position. 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 ) Consult Discharge Plan - Plan Referrals: Nydia Goodrich, [employer] NANNY [Primary Care Provider] -
[2016-06-20] MEDS: Ondansetron ODT 4 MG TAB.RAPDIS SL PRN ×2 (11:14→18:48)
[2016-06-20] MEDS ORDERED: *HR* Heparin 5,000 UNIT/ML VIAL IVP PRN (16:43)
[2016-06-20] MEDS ORDERED: *HR* Heparin 5,000 UNIT/ML VIAL IVP ONE (16:43)
--- NOTE | 2016-06-20 17:02 | Internal Med Progress Note ---
Date of Encounter: 06/20/16 Time of Encounter: 09:00 - Assessment and plan (1) Hip pain, left Current Visit: Yes Status: Acute Assessment and plan: Etiology is undetermined. orthopedic consult on case. Plan for aspiration tomorrow to rule out infection. (2) Anticoagulated on Coumadin Current Visit: Yes Status: Acute Assessment and plan: INR is 2.0 today. Since the patient will do hip joint aspiration tomorrow morning, will hold the Coumadin, give FFP, bridge by heparin drip. Patient is at high risk because as she is on heparin drip, need close monitoring (3) Paroxysmal atrial fibrillation Current Visit: Yes Status: Acute Assessment and plan: Heart rate is controlled. On anticoagulation. (4) COPD (chronic obstructive pulmonary disease) Current Visit: Yes Status: Chronic Assessment and plan: Stable. Duoneb when necessary Qualifiers: COPD type: chronic bronchitis Chronic bronchitis type: unspecified Qualified Code(s): J42 - Unspecified chronic bronchitis (5) Recurrent deep vein thrombosis (DVT) Current Visit: No Status: Acute Assessment and plan: On Coumadin. Will bridge with heparin drip if patient off Coumadin or INR subtherapeutic (6) DVT prophylaxis Current Visit: Yes Status: Acute Assessment and plan: Patient is on Coumadin/heparin drip (7) CKD (chronic kidney disease) Current Visit: Yes Status: Acute Assessment and plan: Stable creatinine level at baseline. We will follow up renal function. Qualifiers: Chronic kidney disease stage: stage 3 (moderate) Qualified Code(s): N18.3 - Chronic kidney disease, stage 3 (moderate) (8) Hypothyroidism Current Visit: Yes Status: Acute Assessment and plan: Continue home medication Synthroid Qualifiers: Hypothyroidism type: unspecified Qualified Code(s): E03.9 - Hypothyroidism , unspecified - Time Spent With Patient Greater than 35 minutes - Subjective Interval history: Patient is a 66-year-old female admitted for left hip pain. Patient had a left hip replacement by Dr. Yeager. Her past medical history is significant for A. fib, COPD, multiple DVT, diabetes, hyperlipidemia, hypertension, CKD, thyroid disease, TIA. Patient was seen and examined. She has less pain on pain medication. No nausea , no vomiting, no fever. Vitals are stable. Orthopedic consult on case, plan for joint aspiration to rule out septic arthritis. We will hold the Coumadin, give FFP for tonight. We will recheck a PT/INR tomorrow morning. Because patient have multiple DVT, she is at high risk for thrombosis. We will bridge with heparin drip during holding Coumadin or INR is subtherapeutic. - Constitutional Vitals: Temp Pulse Resp BP Pulse Ox 98.7 F 84 18 137/68 96 06/20/16 14:36 06/20/16 14:36 06/20/16 14:36 06/20/16 14:36 06/20/16 14:36 General appearance: Present: A&O X 3, no acute distress, obese - Head Head exam: Present: atraumatic, normocephalic - Eye Eye exam: Present: PERRL, conjuntiva pink, sclera anicteric Pupils: Present: PERRL - Neck Neck exam general surgery: Present: supple, trachea midline. Absent: lymphadenopathy - Respiratory Respiratory exam: Present: CTAB. Absent: accessory muscle use, rales, rhonchi, wheezes - Cardiovascular Cardiovascular exam: Present: RRR, +S1, +S2. Absent: diastolic murmur, gallop, rubs, systolic murmur - GI/Abdominal GI/Abdominal exam: Present: normal bowel sounds, soft, no peritoneal signs. Absent: distended, tenderness - Extremities Exam Extremities exam: Present: warm, radial pulses palpable and symetrical. Absent : calf tenderness, cyanotic, pedal edema Additional comments: Left hip pain, limited ROM - Neurological Exam Neurological exam: Present: CN II-XII intact, oriented X3, no focal deficits. Absent: pronater drift, facial droop, speech deficit - Skin Skin exam: Present: dry, intact Internal Medicine: Result - Labs CBC & Chem 7: 06/20/16 04:18 06/20/16 04:18 Labs: Short CBC 06/20/16 Range/Units 04:18 WBC 8.3 (4.3-11.1) K/mcL Hgb 10.9 L (11.5-15.4) g/dL Hct 34.6 L (35.3-44.9) % Plt Count 315 (140-400) K/mcL Neutrophils # 5.1 (1.6-8.9) K/mcL BMP 06/20/16 04:18 Sodium 140 Potassium 3.5 Chloride 108 Carbon Dioxide 23 BUN 21 H Creatinine 1.18 H Glucose 98 Calcium 9.0 - ABG Interpretation ABG results: PT/INR, D-dimer PT 21.7 Seconds (9.4-12.1) H 06/19/16 21:41 - VTE Documentation of Mechanical Device: Graduated compression elastic hosiery Consult Discharge Plan - Plan Referrals: Nydia Goodrich, [employer]INATOR [Primary Care Provider] -
[2016-06-20 17:51] LABS: Hematocrit 35.4 % (35.3-44.9); Hemoglobin 11.3 g/dL (11.5-15.4); Immature Platelets 3.5 % (1.1-6.1); Mean Corpuscular HGB Conc 31.9 g/dL (31.6-35.5); Mean Corpuscular Hemoglobin 28.5 pg (28.0-33.3); Mean Corpuscular Volume 89.4 fL (83.0-100.0); Mean Platelet Volume 10.2 fL (9.4-12.4); Red Blood Count 3.96 M/mcL (3.82-4.97); Red Cell Distribution Width 14.1 % (11.5-14.5)
[2016-06-20] MEDS ORDERED: *HR* Warfarin 5 MG TABLET PO SCH (18:00)
[2016-06-20 18:08] LABS: Prothrombin Time 22.3 Seconds (9.4-12.1)
[2016-06-20 18:11] LABS: Activated Partial Thrombo Time 44.4 Seconds (26.0-36.0)
[2016-06-20] MEDS: Heparin 25,000 UNIT/500 ML D5W 25,000 UNIT/500 ML MLS IVC SCH (18:25)
[2016-06-20] MEDS: tiZANidine 4 MG TABLET PO SCH (20:01)
[2016-06-20] MEDS: clonazePAM 1 MG TABLET PO SCH (20:02)
[2016-06-21 00:41] LABS: Prothrombin Time 22.2 Seconds (9.4-12.1)
[2016-06-21 00:46] LABS: Activated Partial Thrombo Time 107.3 Seconds (26.0-36.0)
[2016-06-21] MEDS ORDERED: Ondansetron ODT 4 MG TAB.RAPDIS SL PRN (01:24)
[2016-06-21] MEDS ORDERED: 0.9 % Sodium Chloride 250 ML ONE ×2 (01:47→05:16)
[2016-06-21] MEDS: Levothyroxine 25 MCG TABLET PO SCH (05:13)
[2016-06-21] MEDS: *HR* HYDROmorphone (PF) 1 MG/ML SYRINGE IVP PRN ×4 (05:18→18:01)
--- NOTE | 2016-06-21 06:30 | Orthopedics Progress Note ---
Date of Encounter: 06/21/16 Time of Encounter: 06:28 Subjective Interval history: Patient seen this morning with acute onset of left hip pain. Patient denies any specific injury. Denies any recent upper respiratory or other infectious process Patient admitted with elevated ESR and CRP. Physical exam Left lower extremity Decreased range of motion secondary to pain Localized to groin area Neurovascularly intact X-rays reviewed left total hip replacement with long-standing greater trochanter nonunion Patient for hip aspiration by interventional radiology today with treatment based on findings. Objective Vital signs: Vital Signs Temp Pulse Resp BP Pulse Ox 06/21/16 06:12 98.3 F 86 16 100/60 94 L 06/21/16 05:09 98.3 F 86 16 100/60 94 L 06/21/16 02:18 99.3 F 94 17 124/58 94 L 06/21/16 02:03 98.5 F 96 20 115/56 94 L 06/21/16 01:56 99.5 F 93 16 119/60 94 L 06/21/16 00:32 99.3 F 100 16 94 L 06/20/16 20:19 99.9 F H 103 18 113/72 94 L 06/20/16 14:36 98.7 F 84 18 137/68 96 06/20/16 11:42 98.9 F 87 16 133/66 95 06/20/16 07:00 98.7 F 78 16 118/54 98 Intake and Output 06/20/16 06/20/16 06/21/16 15:59 23:59 07:59 Intake Total 100 / 100 320 / 320 1306 / 1306 Output Total 200 / 200 Balance -100 / -100 320 / 320 1306 / 1306 Intake: IV Fluids 406 / 406 0.9 % Sodium Chloride 250 250 / 250 ML As .ROUTE .[facility] Rx#:[id number] Heparin 25,000 UNIT/500 156 / 156 ML D5W 25,000 unit In 500 ml @ 14 UNIT/KG/HR 24. 766 mls/hr IVC .[id number] [facility] Rx#:[id number] Oral 100 / 100 320 / 320 Blood Product 900 / 900 Plasma Unit 600 / 600 [id number] Plasma Unit 300 / 300 [id number] Output: Urine 200 / 200 Other: Meal Breakfast Percent of Meal Consumed 75% # Voids 1 1 Blood Glucose* 140 148 - Labs CBC & BMP: 06/20/16 17:40 06/20/16 04:18 Labs: Abnormal lab results Hgb 11.3 g/dL (11.5-15.4) L 06/20/16 17:40 ESR 44 mm/hr (0-15) H 06/19/16 17:52 PT 22.2 Seconds (9.4-12.1) H 06/21/16 00:26 APTT 107.3 Seconds (26.0-36.0) H D 06/21/16 00:26 BUN 21 mg/dL (7-20) H 06/20/16 04:18 Creatinine 1.18 mg/dL (0.57-1.11) H 06/20/16 04:18 Est GFR ( Amer) 55 (> 60) L 06/20/16 04:18 Est GFR (Non-Af Amer) 46 (> 60) L 06/20/16 04:18 POC Glucose 113 (58-89) H 06/20/16 17:03 Uric Acid 6.6 mg/dL (2.6-6.0) H 06/19/16 17:52 C-Reactive Protein 32 mg/L (Less than 5) H 06/19/16 17:52 - VTE Documentation of Mechanical Device: Graduated compression elastic hosiery Consult Discharge Plan - Plan Referrals: Nydia Goodrich, ST[employer]ER [Primary Care Provider] -
[2016-06-21] MEDS: Insulin LISPRO 300 UNITS/3 ML VIAL SQ SCH ×4 (07:32→20:46)
[2016-06-21 07:42] LABS: INR 1.5; Prothrombin Time 16.1 Seconds (9.4-12.1)
[2016-06-21 07:44] LABS: Calcium 9.1 mg/dL (8.6-10.8); Potassium 4.1 mEq/L (3.5-4.5)
[2016-06-21 07:45] LABS: Activated Partial Thrombo Time 25.7 Seconds (26.0-36.0)
[2016-06-21] MEDS: Diltiazem CD (24hr) 120 MG CAPSULE PO SCH (08:08)
[2016-06-21] MEDS: Fenofibrate 54 MG TABLET PO SCH (08:08)
[2016-06-21 08:09] LABS: Basophils % 0.5 %; Eosinophils # 0.2 K/mcL (0.0-0.6); Eosinophils % 2.2 %; Hematocrit 35.2 % (35.3-44.9); Hemoglobin 10.9 g/dL (11.5-15.4); Immature Granulocytes % 0.5 % (0-4); Lymphocytes # 1.7 K/mcL (0.6-4.6); Lymphocytes % 19.1 %; Mean Corpuscular Hemoglobin 28.8 pg (28.0-33.3); Mean Corpuscular Volume 92.9 fL (83.0-100.0); Mean Platelet Volume 10.9 fL (9.4-12.4); Monocytes # 1.1 K/mcL (0.0-1.3); Monocytes % 12.4 %; Neutrophils # 5.7 K/mcL (1.6-8.9); Platelet Count 274 K/mcL (140-400); Red Blood Count 3.79 M/mcL (3.82-4.97); Red Cell Distribution Width 14.2 % (11.5-14.5); Segmented Neutrophils % 65.3 %
[2016-06-21] MEDS: Furosemide 20 MG TABLET PO SCH (08:09)
[2016-06-21] MEDS: BuPROPion SR (12 HR) 150 MG TABLET PO SCH ×2 (08:09→20:44)
[2016-06-21] MEDS: *HR* Heparin 5,000 UNIT/ML VIAL IVP PRN ×2 (08:26→22:18)
[2016-06-21 14:47] LABS: Activated Partial Thrombo Time 117.9 Seconds (26.0-36.0)
[2016-06-21 14:51] LABS: Heparin anti-factor XA UFH 0.62 IU/mL (0.30-0.70)
[2016-06-21] MEDS: Heparin 25,000 UNIT/500 ML D5W 25,000 UNIT/500 ML MLS IVC SCH (16:01)
[2016-06-21] MEDS: Ipratropium/Albuterol Neb 3 ML IH PRN (16:22)
[2016-06-21] MEDS ORDERED: *HR* Warfarin 5 MG TABLET PO SCH (18:00)
--- NOTE | 2016-06-21 18:58 | Internal Med Progress Note ---
Date of Encounter: 06/21/16 Time of Encounter: 09:00 - Assessment and plan (1) Hip pain, left Current Visit: Yes Status: Acute Assessment and plan: Etiology is undetermined. orthopedic consult on case. Did aspiration but cannot get fluid.. Keep pain med as needed. (2) Anticoagulated on Coumadin Current Visit: Yes Status: Acute Assessment and plan: Since the patient plan do hip joint aspiration , Coumadin holded, give FFP, bridge by heparin drip. Will resume coumadin and continue bridge with heparin until INR therapeutic. Patient is at high risk because as she is on heparin drip, need close monitoring (3) Paroxysmal atrial fibrillation Current Visit: Yes Status: Acute Assessment and plan: Heart rate is controlled. On anticoagulation. (4) COPD (chronic obstructive pulmonary disease) Current Visit: Yes Status: Chronic Assessment and plan: Stable. Duoneb when necessary Qualifiers: COPD type: chronic bronchitis Chronic bronchitis type: unspecified Qualified Code(s): J42 - Unspecified chronic bronchitis (5) Recurrent deep vein thrombosis (DVT) Current Visit: No Status: Acute Assessment and plan: On Coumadin. Will bridge with heparin drip if patient off Coumadin or INR subtherapeutic (6) DVT prophylaxis Current Visit: Yes Status: Acute Assessment and plan: Patient is on Coumadin/heparin drip (7) CKD (chronic kidney disease) Current Visit: Yes Status: Acute Assessment and plan: Stable creatinine level at baseline. We will follow up renal function. Qualifiers: Chronic kidney disease stage: stage 3 (moderate) Qualified Code(s): N18.3 - Chronic kidney disease, stage 3 (moderate) (8) Hypothyroidism Current Visit: Yes Status: Acute Assessment and plan: Continue home medication Synthroid Qualifiers: Hypothyroidism type: unspecified Qualified Code(s): E03.9 - Hypothyroidism , unspecified - Time Spent With Patient Greater than 35 minutes - Subjective Interval history: Patient is a 66-year-old female admitted for left hip pain. Patient had a left hip replacement by Dr. Yeager. Her past medical history is significant for A. fib, COPD, multiple DVT, diabetes, hyperlipidemia, hypertension, CKD, thyroid disease, TIA. Patient was seen and examined. She has less pain on pain medication. No nausea , no vomiting, no fever. Vitals are stable. Had left hip aspiration today, cannot get any fluid. Will resume Coumadin tonight. Because patient have multiple DVT, she is at high risk for thrombosis. We will bridge with heparin drip until INR is therapeutic. Further management per orthopedic. - Constitutional Vitals: Temp Pulse Resp BP Pulse Ox 99.6 F 74 20 137/73 98 06/21/16 15:30 06/21/16 15:30 06/21/16 16:26 06/21/16 15:30 06/21/16 16:26 General appearance: Present: A&O X 3, no acute distress, obese - Head Head exam: Present: atraumatic, normocephalic - Eye Eye exam: Present: PERRL, conjuntiva pink, sclera anicteric Pupils: Present: PERRL - Neck Neck exam general surgery: Present: supple, trachea midline. Absent: lymphadenopathy - Respiratory Respiratory exam: Present: CTAB. Absent: accessory muscle use, rales, rhonchi, wheezes - Cardiovascular Cardiovascular exam: Present: RRR, +S1, +S2. Absent: diastolic murmur, gallop, rubs, systolic murmur - GI/Abdominal GI/Abdominal exam: Present: normal bowel sounds, soft, no peritoneal signs. Absent: distended, tenderness - Extremities Exam Extremities exam: Present: warm, radial pulses palpable and symetrical. Absent : calf tenderness, cyanotic, pedal edema - Neurological Exam Neurological exam: Present: CN II-XII intact, oriented X3, no focal deficits. Absent: pronater drift, facial droop, speech deficit - Skin Skin exam: Present: dry, intact Internal Medicine: Result - Labs CBC & Chem 7: 06/21/16 07:13 06/21/16 07:13 Labs: Short CBC 06/21/16 Range/Units 07:13 WBC 8.8 (4.3-11.1) K/mcL Hgb 10.9 L (11.5-15.4) g/dL Hct 35.2 L (35.3-44.9) % Plt Count 274 (140-400) K/mcL Neutrophils # 5.7 (1.6-8.9) K/mcL BMP 06/21/16 07:13 Sodium 140 Potassium 4.1 Chloride 105 Carbon Dioxide 27 BUN 23 H Creatinine 1.59 H Glucose 110 H Calcium 9.1 - ABG Interpretation ABG results: PT/INR, D-dimer PT 16.1 Seconds (9.4-12.1) H 06/21/16 07:13 - Impressions Impressions Joint Aspiration/Injection 06/21/16 08:31 IMPRESSION: 1. Status post left hip aspiration under fluoroscopy guidance. No fluid was aspirated. D/ / 06/21/2016 10:41:50 Rachell Mathew MD / [facility] Interpreting Provider: Rachell Mathew MD - VTE Documentation of Mechanical Device: Graduated compression elastic hosiery Consult Discharge Plan - Plan Referrals: Nydia Goodrich, RANGE OPERATOR [Primary Care Provider] -
[2016-06-21] MEDS: tiZANidine 4 MG TABLET PO SCH (20:43)
[2016-06-21] MEDS: clonazePAM 1 MG TABLET PO SCH (20:44)
[2016-06-22] MEDS: *HR* HYDROmorphone (PF) 1 MG/ML SYRINGE IVP PRN ×4 (03:17→20:52)
[2016-06-22] MEDS: Levothyroxine 25 MCG TABLET PO SCH (05:48)
[2016-06-22 06:08] LABS: Basophils # 0.1 K/mcL (0.0-0.2); Basophils % 0.6 %; Eosinophils # 0.2 K/mcL (0.0-0.6); Eosinophils % 2.1 %; Hematocrit 31.4 % (35.3-44.9); Hemoglobin 9.9 g/dL (11.5-15.4); Immature Granulocytes % 0.6 % (0-4); Lymphocytes # 1.6 K/mcL (0.6-4.6); Lymphocytes % 18.4 %; Mean Corpuscular HGB Conc 31.5 g/dL (31.6-35.5); Mean Corpuscular Hemoglobin 29.3 pg (28.0-33.3); Mean Corpuscular Volume 92.9 fL (83.0-100.0); Mean Platelet Volume 12.1 fL (9.4-12.4); Monocytes % 11.1 %; Neutrophils # 5.9 K/mcL (1.6-8.9); Platelet Count 171 K/mcL (140-400); Red Blood Count 3.38 M/mcL (3.82-4.97); Segmented Neutrophils % 67.2 %
[2016-06-22 06:14] LABS: Activated Partial Thrombo Time 77.7 Seconds (26.0-36.0)
[2016-06-22 06:26] LABS: Calcium 9.2 mg/dL (8.6-10.8)
[2016-06-22 06:36] LABS: Potassium 4.2 mEq/L (3.5-4.5)
--- NOTE | 2016-06-22 06:36 | Orthopedics Progress Note ---
Date of Encounter: 06/22/16 Time of Encounter: 06:35 Subjective Interval history: Patient seen this morning still complains of left groin pain. Aspiration attempted by interventional radiologist 3 returned no fluid. Unknown etiology of left hip pain will obtain bone scan. Recommend looking for other source. Objective Vital signs: Vital Signs Temp Pulse Resp BP Pulse Ox 06/22/16 04:55 98.8 F 84 14 111/65 95 06/21/16 23:36 99.9 F H 82 17 103/61 95 06/21/16 19:32 100.1 F H 92 20 133/55 92 L 06/21/16 16:26 20 98 06/21/16 15:30 99.6 F 74 19 137/73 93 L 06/21/16 10:53 99.6 F 89 19 132/69 92 L 06/21/16 08:55 99.6 F 91 16 104/51 93 L 06/21/16 08:00 98.6 F 90 16 108/55 96 Intake and Output 06/21/16 06/21/16 06/22/16 15:59 23:59 07:59 Intake Total 644 / 644 270 / 270 Output Total 400 / 400 900 / 900 Balance 244 / 244 -630 / -630 Intake: IV Fluids 344 / 344 150 / 150 Heparin 25,000 UNIT/500 344 / 344 150 / 150 ML D5W 25,000 unit In 500 ml @ 14 UNIT/KG/HR 24. 766 mls/hr IVC .[id number] TIM Rx#:[id number] Oral 120 / 120 Blood Product 300 / 300 Plasma Unit 300 / 300 [id number] Output: Urine 400 / 400 900 / 900 Other: Meal Dinner Percent of Meal Consumed 25% # Voids 1 Blood Glucose* 109 154 - Labs CBC & BMP: 06/22/16 05:26 06/21/16 07:13 Labs: Abnormal lab results RBC 3.38 M/mcL (3.82-4.97) L 06/22/16 05:26 Hgb 9.9 g/dL (11.5-15.4) L 06/22/16 05:26 Hct 31.4 % (35.3-44.9) L 06/22/16 05:26 MCHC 31.5 g/dL (31.6-35.5) L 06/22/16 05:26 ESR 44 mm/hr (0-15) H 06/19/16 17:52 PT 16.1 Seconds (9.4-12.1) H 06/21/16 07:13 APTT 77.7 Seconds (26.0-36.0) H D 06/22/16 05:26 BUN 23 mg/dL (7-20) H 06/21/16 07:13 Creatinine 1.59 mg/dL (0.57-1.11) H 06/21/16 07:13 Est GFR ( Amer) 39 (> 60) L 06/21/16 07:13 Est GFR (Non-Af Amer) 32 (> 60) L 06/21/16 07:13 Glucose 110 mg/dL (70-99) H 06/21/16 07:13 POC Glucose 109 (58-89) H 06/21/16 11:44 Uric Acid 6.6 mg/dL (2.6-6.0) H 06/19/16 17:52 C-Reactive Protein 32 mg/L (Less than 5) H 06/19/16 17:52 - VTE Documentation of Mechanical Device: Graduated compression elastic hosiery Consult Discharge Plan - Plan Referrals: Nydia Goodrich, [employer] [Primary Care Provider] -
[2016-06-22] MEDS: Insulin LISPRO 300 UNITS/3 ML VIAL SQ SCH ×4 (08:02→20:52)
[2016-06-22 08:14] LABS: INR 1.3; Prothrombin Time 14.5 Seconds (9.4-12.1)
[2016-06-22] MEDS: Furosemide 20 MG TABLET PO SCH (09:28)
[2016-06-22] MEDS: BuPROPion SR (12 HR) 150 MG TABLET PO SCH ×2 (09:28→20:52)
[2016-06-22] MEDS: Diltiazem CD (24hr) 120 MG CAPSULE PO SCH (09:29)
[2016-06-22] MEDS: Fenofibrate 54 MG TABLET PO SCH (09:29)
[2016-06-22] MEDS: Ipratropium/Albuterol Neb 3 ML IH PRN ×2 (10:54→17:28)
[2016-06-22] MEDS: Heparin 25,000 UNIT/500 ML D5W 25,000 UNIT/500 ML MLS IVC SCH (12:23)
--- NOTE | 2016-06-22 13:13 | Internal Med Progress Note ---
Date of Encounter: 06/22/16 Time of Encounter: 12:30 - Assessment and plan (1) Hip pain, left Current Visit: Yes Status: Acute Assessment and plan: Uncertain etiology. Bone scan done. Mild loosening of acetabular cup, mild abnormal motion with reactive changes from greater trochanter present. Orthopedics is following patient. Patient appears to be having dermatitis in this region. Will treat with topical nystatin. No signs of cellulitis. No tenderness or warmth palpated. (2) Anticoagulated on Coumadin Current Visit: Yes Status: Acute Assessment and plan: Coumadin held. Patient receiving intravenous heparin. Will resume Coumadin if no surgical procedure planned. (3) CKD (chronic kidney disease) Current Visit: Yes Status: Chronic Assessment and plan: Renal function is stable. Continue to monitor Qualifiers: Chronic kidney disease stage: stage 3 (moderate) Qualified Code(s): N18.3 - Chronic kidney disease, stage 3 (moderate) (4) Hypothyroidism Current Visit: Yes Status: Chronic Assessment and plan: Continue levothyroxine Qualifiers: Hypothyroidism type: unspecified Qualified Code(s): E03.9 - Hypothyroidism , unspecified (5) Paroxysmal atrial fibrillation Current Visit: Yes Status: Acute Assessment and plan: In sinus rhythm. Rate controlled. (6) COPD (chronic obstructive pulmonary disease) Current Visit: Yes Status: Chronic Assessment and plan: Not in acute exacerbation Qualifiers: COPD type: chronic bronchitis Chronic bronchitis type: unspecified Qualified Code(s): J42 - Unspecified chronic bronchitis (7) Recurrent deep vein thrombosis (DVT) Current Visit: No Status: Acute Assessment and plan: On intravenous heparin - Subjective Interval history: Continues to have pain. In the left groin region. Says the pain is very deep and almost feels like it is in her bones. No fever or chills reported. Patient underwent arthrocentesis under IR guidance yesterday but no fluid was obtained. Also underwent bone scan today. She says that the pain sometimes feels like an electric shock but its restricted to her groin. It does not radiate down her leg. No numbness or tingling in her lower extremities. - Constitutional Vitals: Temp Pulse Resp BP Pulse Ox 98.8 F 98 16 123/69 95 06/22/16 10:40 06/22/16 10:40 06/22/16 10:55 06/22/16 10:40 06/22/16 10:55 General appearance: Present: A&O X 3, no acute distress, obese - Eye Eye exam: Present: EOMI, PERRL, conjuntiva pink, sclera anicteric - Neck Neck exam general surgery: Present: full ROM - Respiratory Respiratory exam: Present: CTAB. Absent: accessory muscle use, rales, rhonchi, wheezes - Cardiovascular Cardiovascular exam: Present: RRR, +S1, +S2. Absent: diastolic murmur, gallop, rubs, systolic murmur - GI/Abdominal GI/Abdominal exam: Present: normal bowel sounds, soft, no peritoneal signs. Absent: distended, tenderness - Extremities Exam Additional comments: Erythema present over the left inguinal region. No tenderness. No discharge. No enlarged or tender inguinal lymph nodes. Has good range of motion at bilateral knee and ankle joints. Decreased range of motion at left hip due to pain. - Neurological Exam Neurological exam: Present: CN II-XII intact, oriented X3, no focal deficits, strengths equal and symetr throughout. Absent: facial droop, speech deficit Internal Medicine: Result - Labs CBC & Chem 7: 06/22/16 05:26 06/22/16 05:26 Labs: Short CBC 06/22/16 Range/Units 05:26 WBC 8.7 (4.3-11.1) K/mcL Hgb 9.9 L (11.5-15.4) g/dL Hct 31.4 L (35.3-44.9) % Plt Count 171 (140-400) K/mcL Neutrophils # 5.9 (1.6-8.9) K/mcL BMP 06/22/16 05:26 Sodium 138 Potassium 4.2 Chloride 105 Carbon Dioxide 23 BUN 27 H Creatinine 1.28 H Glucose 100 H Calcium 9.2 - ABG Interpretation ABG results: PT/INR, D-dimer PT 14.5 Seconds (9.4-12.1) H 06/22/16 05:26 - Impressions Impressions Joint Aspiration/Injection 06/21/16 08:31 IMPRESSION: 1. Status post left hip aspiration under fluoroscopy guidance. No fluid was aspirated. D/ / 06/21/2016 10:41:50 Rachell Mathew MD / [email or web address] Interpreting Provider: Rachell Mathew MD Bone Scan Nuclear Medicine 06/22/16 09:00 IMPRESSION: No evidence of infection or acute osseous injury. Total left hip prosthesis. There may be mild loosening of the acetabular cup. There may be mild abnormal motion (with reactive changes) of the greater trochanter, which is incompletely fused to parent femur. No loosening of the femoral stem is evident. D/ / Herbert Mendez MD / Herbert Mendez MD Interpreting Provider: Herbert Mendez MD - VTE Documentation of Mechanical Device: Graduated compression elastic hosiery Consult Discharge Plan - Plan Referrals: Nydia Goodirch, STEM PROCESSING MACHINE OPERATOR [Primary Care Provider] - - Attending Attestation This document has been at least partially created by [employer] recognition technology by Dr. Alexis. Errors in grammar, wording or other phrases may exist. If errors are found after the documentation is signed, they will be addressed individually in the addendum section of this document when appropriate. Medical Decision Making - MDM Narrative Medical decision making narrative: Moderate risk for complications - Medical Records Medical records reviewed: Yes I reviewed the patient's medical records. - Lab Data Lab results reviewed: Yes I reviewed the patient's lab results. Result diagrams: 06/22/16 05:26 06/22/16 05:26 Lab Results 06/19/16 06/19/16 06/20/16 Range/Units 21:41 22:06 04:18 WBC 8.3 (4.3-11.1) K/mcL RBC 3.81 L (3.82-4.97) M/mcL Hgb 10.9 L (11.5-15.4) g/dL Hct 34.6 L (35.3-44.9) % MCV 90.8 (83.0-100.0) fL MCH 28.6 (28.0-33.3) pg MCHC 31.5 L (31.6-35.5) g/dL RDW 14.2 (11.5-14.5) % Plt Count 315 (140-400) K/mcL MPV 10.6 (9.4-12.4) fL Immature Gran % 0.4 (0-4) % Seg Neutrophils % 60.8 % Lymphocytes % 23.2 % Monocytes % 11.4 % Eosinophils % 3.5 % Basophils % 0.7 % Neutrophils # 5.1 (1.6-8.9) K/mcL Lymphocytes # 1.9 (0.6-4.6) K/mcL Monocytes # 1.0 (0.0-1.3) K/mcL Eosinophils # 0.3 (0.0-0.6) K/mcL Basophils # 0.1 (0.0-0.2) K/mcL Immature Plt Fraction (1.1-6.1) % PT 21.7 H (9.4-12.1) Seconds INR 2.0 APTT 44.7 H (26.0-36.0) Seconds Heparin Anti-Xa, Unfract (0.30-0.70) IU/mL Sodium (136-145) mEq/L Potassium (3.5-4.5) mEq/L Chloride (98-109) mEq/L Carbon Dioxide (19-29) mEq/L BUN (7-20) mg/dL Creatinine (0.57-1.11) mg/dL Est GFR ( Amer) (> 60) Est GFR (Non-Af Amer) (> 60) BUN/Creatinine Ratio (6-26) Glucose (70-99) mg/dL POC Glucose 98 H (58-89) Calculated Osmolality (280-300) Calcium (8.6-10.8) mg/dL Blood Type Antibody Screen 06/20/16 06/20/16 06/20/16 Range/Units 04:18 07:15 11:40 WBC (4.3-11.1) K/mcL RBC (3.82-4.97) M/mcL Hgb (11.5-15.4) g/dL Hct (35.3-44.9) % MCV (83.0-100.0) fL MCH (28.0-33.3) pg MCHC (31.6-35.5) g/dL RDW (11.5-14.5) % Plt Count (140-400) K/mcL MPV (9.4-12.4) fL Immature Gran % (0-4) % Seg Neutrophils % % Lymphocytes % % Monocytes % % Eosinophils % % Basophils % % Neutrophils # (1.6-8.9) K/mcL Lymphocytes # (0.6-4.6) K/mcL Monocytes # (0.0-1.3) K/mcL Eosinophils # (0.0-0.6) K/mcL Basophils # (0.0-0.2) K/mcL Immature Plt Fraction (1.1-6.1) % PT (9.4-12.1) Seconds INR APTT (26.0-36.0) Seconds Heparin Anti-Xa, Unfract (0.30-0.70) IU/mL Sodium 140 (136-145) mEq/L Potassium 3.5 (3.5-4.5) mEq/L Chloride 108 (98-109) mEq/L Carbon Dioxide 23 (19-29) mEq/L BUN 21 H (7-20) mg/dL Creatinine 1.18 H (0.57-1.11) mg/dL Est GFR ( Amer) 55 L (> 60) Est GFR (Non-Af Amer) 46 L (> 60) BUN/Creatinine Ratio 18 (6-26) Glucose 98 (70-99) mg/dL POC Glucose 111 H 140 H (58-89) Calculated Osmolality 293 (280-300) Calcium 9.0 (8.6-10.8) mg/dL Blood Type Antibody Screen 06/20/16 06/20/16 06/20/16 Range/Units 17:03 17:40 17:40 WBC 10.5 (4.3-11.1) K/mcL RBC 3.96 (3.82-4.97) M/mcL Hgb 11.3 L (11.5-15.4) g/dL Hct 35.4 (35.3-44.9) % MCV 89.4 (83.0-100.0) fL MCH 28.5 (28.0-33.3) pg MCHC 31.9 (31.6-35.5) g/dL RDW 14.1 (11.5-14.5) % Plt Count 336 (140-400) K/mcL MPV 10.2 (9.4-12.4) fL Immature Gran % (0-4) % Seg Neutrophils % % Lymphocytes % % Monocytes % % Eosinophils % % Basophils % % Neutrophils # (1.6-8.9) K/mcL Lymphocytes # (0.6-4.6) K/mcL Monocytes # (0.0-1.3) K/mcL Eosinophils # (0.0-0.6) K/mcL Basophils # (0.0-0.2) K/mcL Immature Plt Fraction 3.5 (1.1-6.1) % PT (9.4-12.1) Seconds INR APTT (26.0-36.0) Seconds Heparin Anti-Xa, Unfract (0.30-0.70) IU/mL Sodium (136-145) mEq/L Potassium (3.5-4.5) mEq/L Chloride (98-109) mEq/L Carbon Dioxide (19-29) mEq/L BUN (7-20) mg/dL Creatinine (0.57-1.11) mg/dL Est GFR ( Amer) (> 60) Est GFR (Non-Af Amer) (> 60) BUN/Creatinine Ratio (6-26) Glucose (70-99) mg/dL POC Glucose 113 H (58-89) Calculated Osmolality (280-300) Calcium (8.6-10.8) mg/dL Blood Type A POSITIVE Antibody Screen NEGATIVE 06/20/16 06/20/16 06/21/16 Range/Units 17:40 20:41 00:26 WBC (4.3-11.1) K/mcL RBC (3.82-4.97) M/mcL Hgb (11.5-15.4) g/dL Hct (35.3-44.9) % MCV (83.0-100.0) fL MCH (28.0-33.3) pg MCHC (31.6-35.5) g/dL RDW (11.5-14.5) % Plt Count (140-400) K/mcL MPV (9.4-12.4) fL Immature Gran % (0-4) % Seg Neutrophils % % Lymphocytes % % Monocytes % % Eosinophils % % Basophils % % Neutrophils # (1.6-8.9) K/mcL Lymphocytes # (0.6-4.6) K/mcL Monocytes # (0.0-1.3) K/mcL Eosinophils # (0.0-0.6) K/mcL Basophils # (0.0-0.2) K/mcL Immature Plt Fraction (1.1-6.1) % PT 22.3 H 22.2 H (9.4-12.1) Seconds INR 2.0 2.0 APTT 44.4 H 107.3 H D (26.0-36.0) Seconds Heparin Anti-Xa, Unfract (0.30-0.70) IU/mL Sodium (136-145) mEq/L Potassium (3.5-4.5) mEq/L Chloride (98-109) mEq/L Carbon Dioxide (19-29) mEq/L BUN (7-20) mg/dL Creatinine (0.57-1.11) mg/dL Est GFR ( Amer) (> 60) Est GFR (Non-Af Amer) (> 60) BUN/Creatinine Ratio (6-26) Glucose (70-99) mg/dL POC Glucose 148 H (58-89) Calculated Osmolality (280-300) Calcium (8.6-10.8) mg/dL Blood Type Antibody Screen 06/21/16 06/21/16 06/21/16 Range/Units 06:57 07:13 07:13 WBC 8.8 (4.3-11.1) K/mcL RBC 3.79 L (3.82-4.97) M/mcL Hgb 10.9 L (11.5-15.4) g/dL Hct 35.2 L (35.3-44.9) % MCV 92.9 (83.0-100.0) fL MCH 28.8 (28.0-33.3) pg MCHC 31.0 L (31.6-35.5) g/dL RDW 14.2 (11.5-14.5) % Plt Count 274 (140-400) K/mcL MPV 10.9 (9.4-12.4) fL Immature Gran % 0.5 (0-4) % Seg Neutrophils % 65.3 % Lymphocytes % 19.1 % Monocytes % 12.4 % Eosinophils % 2.2 % Basophils % 0.5 % Neutrophils # 5.7 (1.6-8.9) K/mcL Lymphocytes # 1.7 (0.6-4.6) K/mcL Monocytes # 1.1 (0.0-1.3) K/mcL Eosinophils # 0.2 (0.0-0.6) K/mcL Basophils # 0.0 (0.0-0.2) K/mcL Immature Plt Fraction (1.1-6.1) % PT (9.4-12.1) Seconds INR APTT (26.0-36.0) Seconds Heparin Anti-Xa, Unfract (0.30-0.70) IU/mL Sodium 140 (136-145) mEq/L Potassium 4.1 (3.5-4.5) mEq/L Chloride 105 (98-109) mEq/L Carbon Dioxide 27 (19-29) mEq/L BUN 23 H (7-20) mg/dL Creatinine 1.59 H (0.57-1.11) mg/dL Est GFR ( Amer) 39 L (> 60) Est GFR (Non-Af Amer) 32 L (> 60) BUN/Creatinine Ratio 14 (6-26) Glucose 110 H (70-99) mg/dL POC Glucose 109 H (58-89) Calculated Osmolality 294 (280-300) Calcium 9.1 (8.6-10.8) mg/dL Blood Type Antibody Screen 06/21/16 06/21/16 06/21/16 Range/Units 07:13 11:44 14:18 WBC (4.3-11.1) K/mcL RBC (3.82-4.97) M/mcL Hgb (11.5-15.4) g/dL Hct (35.3-44.9) % MCV (83.0-100.0) fL MCH (28.0-33.3) pg MCHC (31.6-35.5) g/dL RDW (11.5-14.5) % Plt Count (140-400) K/mcL MPV (9.4-12.4) fL Immature Gran % (0-4) % Seg Neutrophils % % Lymphocytes % % Monocytes % % Eosinophils % % Basophils % % Neutrophils # (1.6-8.9) K/mcL Lymphocytes # (0.6-4.6) K/mcL Monocytes # (0.0-1.3) K/mcL Eosinophils # (0.0-0.6) K/mcL Basophils # (0.0-0.2) K/mcL Immature Plt Fraction (1.1-6.1) % PT 16.1 H (9.4-12.1) Seconds INR 1.5 APTT 25.7 L D 117.9 H* D (26.0-36.0) Seconds Heparin Anti-Xa, Unfract 0.62 (0.30-0.70) IU/mL Sodium (136-145) mEq/L Potassium (3.5-4.5) mEq/L Chloride (98-109) mEq/L Carbon Dioxide (19-29) mEq/L BUN (7-20) mg/dL Creatinine (0.57-1.11) mg/dL Est GFR ( Amer) (> 60) Est GFR (Non-Af Amer) (> 60) BUN/Creatinine Ratio (6-26) Glucose (70-99) mg/dL POC Glucose 109 H (58-89) Calculated Osmolality (280-300) Calcium (8.6-10.8) mg/dL Blood Type Antibody Screen 06/21/16 06/22/16 06/22/16 Range/Units 21:41 05:26 05:26 WBC 8.7 (4.3-11.1) K/mcL RBC 3.38 L (3.82-4.97) M/mcL Hgb 9.9 L (11.5-15.4) g/dL Hct 31.4 L (35.3-44.9) % MCV 92.9 (83.0-100.0) fL MCH 29.3 (28.0-33.3) pg MCHC 31.5 L (31.6-35.5) g/dL RDW 14.0 (11.5-14.5) % Plt Count 171 (140-400) K/mcL MPV 12.1 (9.4-12.4) fL Immature Gran % 0.6 (0-4) % Seg Neutrophils % 67.2 % Lymphocytes % 18.4 % Monocytes % 11.1 % Eosinophils % 2.1 % Basophils % 0.6 % Neutrophils # 5.9 (1.6-8.9) K/mcL Lymphocytes # 1.6 (0.6-4.6) K/mcL Monocytes # 1.0 (0.0-1.3) K/mcL Eosinophils # 0.2 (0.0-0.6) K/mcL Basophils # 0.1 (0.0-0.2) K/mcL Immature Plt Fraction (1.1-6.1) % PT (9.4-12.1) Seconds INR APTT 31.8 D (26.0-36.0) Seconds Heparin Anti-Xa, Unfract (0.30-0.70) IU/mL Sodium 138 (136-145) mEq/L Potassium 4.2 (3.5-4.5) mEq/L Chloride 105 (98-109) mEq/L Carbon Dioxide 23 (19-29) mEq/L BUN 27 H (7-20) mg/dL Creatinine 1.28 H (0.57-1.11) mg/dL Est GFR ( Amer) 50 L (> 60) Est GFR (Non-Af Amer) 41 L (> 60) BUN/Creatinine Ratio 21 (6-26) Glucose 100 H (70-99) mg/dL POC Glucose (58-89) Calculated Osmolality 291 (280-300) Calcium 9.2 (8.6-10.8) mg/dL Blood Type Antibody Screen 06/22/16 06/22/16 Range/Units 05:26 10:59 WBC (4.3-11.1) K/mcL RBC (3.82-4.97) M/mcL Hgb (11.5-15.4) g/dL Hct (35.3-44.9) % MCV (83.0-100.0) fL MCH (28.0-33.3) pg MCHC (31.6-35.5) g/dL RDW (11.5-14.5) % Plt Count (140-400) K/mcL MPV (9.4-12.4) fL Immature Gran % (0-4) % Seg Neutrophils % % Lymphocytes % % Monocytes % % Eosinophils % % Basophils % % Neutrophils # (1.6-8.9) K/mcL Lymphocytes # (0.6-4.6) K/mcL Monocytes # (0.0-1.3) K/mcL Eosinophils # (0.0-0.6) K/mcL Basophils # (0.0-0.2) K/mcL Immature Plt Fraction (1.1-6.1) % PT 14.5 H (9.4-12.1) Seconds INR 1.3 APTT 77.7 H D 88.4 H (26.0-36.0) Seconds Heparin Anti-Xa, Unfract (0.30-0.70) IU/mL Sodium (136-145) mEq/L Potassium (3.5-4.5) mEq/L Chloride (98-109) mEq/L Carbon Dioxide (19-29) mEq/L BUN (7-20) mg/dL Creatinine (0.57-1.11) mg/dL Est GFR ( Amer) (> 60) Est GFR (Non-Af Amer) (> 60) BUN/Creatinine Ratio (6-26) Glucose (70-99) mg/dL POC Glucose (58-89) Calculated Osmolality (280-300) Calcium (8.6-10.8) mg/dL Blood Type Antibody Screen
[2016-06-22 17:35] LABS: Uric Acid 6.9 mg/dL (2.6-6.0)
[2016-06-22] MEDS ORDERED: *HR* Warfarin 2.5 MG TABLET PO SCH (18:00)
[2016-06-22] MEDS: Nystatin POWDER 30 GM BOTTLE TP SCH (20:54)
[2016-06-22] MEDS: clonazePAM 1 MG TABLET PO SCH (23:17)
[2016-06-22] MEDS: tiZANidine 4 MG TABLET PO SCH (23:17)
[2016-06-22 23:19] LABS: Activated Partial Thrombo Time 112.6 Seconds (26.0-36.0)
[2016-06-22 23:25] LABS: Heparin anti-factor XA UFH 0.52 IU/mL (0.30-0.70)
[2016-06-23 01:53] LABS: Basophils # 0.1 K/mcL (0.0-0.2); Basophils % 0.7 %; Eosinophils # 0.3 K/mcL (0.0-0.6); Eosinophils % 4.2 %; Hematocrit 28.4 % (35.3-44.9); Immature Granulocytes % 0.5 % (0-4); Lymphocytes # 1.3 K/mcL (0.6-4.6); Mean Corpuscular HGB Conc 31.7 g/dL (31.6-35.5); Mean Corpuscular Hemoglobin 28.9 pg (28.0-33.3); Mean Corpuscular Volume 91.3 fL (83.0-100.0); Mean Platelet Volume 10.6 fL (9.4-12.4); Monocytes % 12.6 %; Neutrophils # 4.9 K/mcL (1.6-8.9); Platelet Count 286 K/mcL (140-400); Red Blood Count 3.11 M/mcL (3.82-4.97); Red Cell Distribution Width 13.8 % (11.5-14.5)
[2016-06-23 01:57] LABS: INR 1.4; Prothrombin Time 15.5 Seconds (9.4-12.1)
[2016-06-23 02:04] LABS: BUN/Creatinine Ratio 20 (6-26); Blood Urea Nitrogen 22 mg/dL (7-20); Calcium 9.1 mg/dL (8.6-10.8); Carbon Dioxide 27 mEq/L (19-29); Chloride 104 mEq/L (98-109); Glucose 123 mg/dL (70-99); Osmolality,Calculated 289 (280-300); Potassium 4.2 mEq/L (3.5-4.5); Sodium 137 mEq/L (136-145); eGFR For African Americans > 60 (> 60); eGFR For Non-African Americans 50 (> 60)
[2016-06-23] MEDS: *HR* HYDROmorphone (PF) 1 MG/ML SYRINGE IVP PRN (04:59)
[2016-06-23] MEDS: Levothyroxine 25 MCG TABLET PO SCH (04:59)
[2016-06-23] MEDS: Heparin 25,000 UNIT/500 ML D5W 25,000 UNIT/500 ML MLS IVC SCH (07:34)
[2016-06-23] MEDS: Insulin LISPRO 300 UNITS/3 ML VIAL SQ SCH ×2 (09:06→11:54)
--- NOTE | 2016-06-23 09:07 | Orthopedics Progress Note ---
Date of Encounter: 06/23/16 Time of Encounter: 06:00 Subjective Interval history: Patient seen this morning still complains of left groin pain. Bone scan reviewed shows possible source of acetabulum for infection based on the radiology report. discussed this finding with the patient at this point in time recommended outpatient workup with the possibility of revision surgery if discomfort does not improve. Objective Vital signs: Vital Signs Temp Pulse Resp BP Pulse Ox 06/23/16 06:50 98.1 F 75 16 102/57 94 L 06/23/16 00:00 98.4 F 86 16 112/69 95 06/22/16 20:57 99.2 F 94 18 112/68 96 06/22/16 17:28 16 94 L 06/22/16 15:15 100.0 F H 108 18 131/79 93 L 06/22/16 10:55 16 95 06/22/16 10:40 98.8 F 98 16 123/69 95 06/22/16 09:21 93 16 131/68 96 Intake and Output 06/22/16 06/23/16 06/23/16 23:59 07:59 15:59 Intake Total 128 / 128 407 / 407 Output Total 300 / 300 Balance -172 / -172 407 / 407 Intake: IV Fluids 128 / 128 407 / 407 Heparin 25,000 UNIT/500 128 / 128 407 / 407 ML D5W 25,000 unit In 500 ml @ 14 UNIT/KG/HR 24. 766 mls/hr IVC .[id number] TIM Rx#:[id number] Output: Urine 300 / 300 Other: # Voids 1 Blood Glucose* 135 102 - Labs CBC & BMP: 06/23/16 01:36 06/23/16 01:36 Labs: Abnormal lab results RBC 3.11 M/mcL (3.82-4.97) L 06/23/16 01:36 Hgb 9.0 g/dL (11.5-15.4) L 06/23/16 01:36 Hct 28.4 % (35.3-44.9) L 06/23/16 01:36 ESR 44 mm/hr (0-15) H 06/19/16 17:52 PT 15.5 Seconds (9.4-12.1) H 06/23/16 01:36 APTT 60.0 Seconds (26.0-36.0) H 06/23/16 07:50 BUN 22 mg/dL (7-20) H 06/23/16 01:36 Est GFR (Non-Af Amer) 50 (> 60) L 06/23/16 01:36 Glucose 123 mg/dL (70-99) H 06/23/16 01:36 POC Glucose 135 (58-89) H 06/22/16 20:00 Uric Acid 6.9 mg/dL (2.6-6.0) H 06/22/16 05:26 C-Reactive Protein 32 mg/L (Less than 5) H 06/19/16 17:52 - VTE Documentation of Mechanical Device: Graduated compression elastic hosiery Consult Discharge Plan - Plan Referrals: Nydia Goodrich CNP [Primary Care Provider] - Manuel Yeager MD [Partnered Physician] - 06/30/16 5:15 pm Ariel Sainz MD [Partnered Physician] - 08/30/16 1:00 pm
[2016-06-23] MEDS: Furosemide 20 MG TABLET PO SCH (09:13)
[2016-06-23] MEDS: Diltiazem CD (24hr) 120 MG CAPSULE PO SCH (09:14)
[2016-06-23] MEDS: Fenofibrate 54 MG TABLET PO SCH (09:14)
[2016-06-23] MEDS: BuPROPion SR (12 HR) 150 MG TABLET PO SCH (09:14)
[2016-06-23] MEDS: Nystatin POWDER 30 GM BOTTLE TP SCH (09:15)
--- NOTE | 2016-06-23 09:28 | Discharge Summary ---
Date of Encounter: 06/23/16 Time of Encounter: 09:00 - Discharge Diagnosis (1) Hip pain, left Priority: Primary Status: Acute (2) Anticoagulated on Coumadin Priority: Secondary Status: Acute (3) CKD (chronic kidney disease) Priority: Secondary Status: Chronic Qualifiers: Chronic kidney disease stage: stage 3 (moderate) Qualified Code(s): N18.3 - Chronic kidney disease, stage 3 (moderate) (4) Hypothyroidism Priority: Secondary Status: Chronic Qualifiers: Hypothyroidism type: unspecified Qualified Code(s): E03.9 - Hypothyroidism , unspecified (5) Paroxysmal atrial fibrillation Priority: Secondary Status: Acute (6) COPD (chronic obstructive pulmonary disease) Priority: Secondary Status: Chronic Qualifiers: COPD type: chronic bronchitis Chronic bronchitis type: unspecified Qualified Code(s): J42 - Unspecified chronic bronchitis (7) Recurrent deep vein thrombosis (DVT) Priority: Secondary Status: Acute (8) Acute gout involving toe Priority: Secondary Status: Suspected Comments: Left great toe. Qualifiers: Gout etiology: unspecified cause Laterality: left Qualified Code(s): M10.9 - Gout, unspecified - Discharge Medications Prescriptions: Enoxaparin [Lovenox *PHARMACY WT BASED*] 90 mg SQ Q12HR 4 Days Nystatin POWDER [Nystop] 1 appl TP BID #1 bottle Oxycodone HCl/Acetaminophen [Percocet 5-325 mg Tablet] 1 each PO Q4H PRN #20 tablet PRN Reason: Pain PredniSONE [Prednisone] 10 mg PO DAILY 16 Days Home Medications: ClonazePAM [Klonopin] 1 mg PO HS 05/09/15 [History] Diltiazem HCl [Diltiazem 24Hr Cd] 120 mg PO QAM 05/09/15 [History] Esomeprazole Magnesium [Nexium] 40 mg PO QAM 05/09/15 [History] Fenofibrate [Tricor] 145 mg PO DAILY 05/09/15 [History] Furosemide [Lasix] 20 mg PO DAILY 05/09/15 [History] Levothyroxine [Synthroid] 25 mcg PO 0630 05/09/15 [History] Lisinopril [Zestril] 5 mg PO DAILY 05/09/15 [History] Potassium Chloride 20 meq PO DAILY 05/09/15 [History] Warfarin [Coumadin] 5 mg PO SUMOWETHFRSA 09/04/15 [History] Bupropion HCl [Zyban] 150 mg PO BID 09/21/15 [History] Docusate [Colace] 100 mg PO BID 09/21/15 [History] Duloxetine [Cymbalta] 30 mg PO DAILY 09/21/15 [History] Lovastatin 10 mg PO HS 09/21/15 [History] Tizanidine HCl [Zanaflex] 4 mg PO HS 09/21/15 [History] Warfarin [Coumadin] 2.5 mg PO TU 06/19/16 [History] Enoxaparin [Lovenox *PHARMACY WT BASED*] 90 mg SQ Q12HR 4 Days 06/23/16 [Rx] Nystatin POWDER [Nystop] 1 appl TP BID #1 bottle 06/23/16 [Rx] Oxycodone HCl/Acetaminophen [Percocet 5-325 mg Tablet] 1 each PO Q4H PRN #20 tablet 06/23/16 [Rx] PredniSONE [Prednisone] 10 mg PO DAILY 16 Days 06/23/16 [Rx] Allergies/Adverse Reactions: Allergies Sulfa (Sulfonamide Antibiotics) Allergy (Mild, Verified 03/24/16 13:39) Rash hives acetaminophen [From Vicodin] Allergy (Verified 03/27/16 20:08) Rash atorvastatin [From Lipitor] Allergy (Verified 03/24/16 13:39) Hives codeine Allergy (Verified 03/24/16 13:39) Hives hydrocodone [From Vicodin] Allergy (Verified 03/27/16 20:08) Rash morphine Allergy (Verified 03/24/16 13:39) Hives nitrofurantoin [From Macrobid] Allergy (Verified 03/24/16 13:39) Hives phenazopyridine [From Pyridium] Allergy (Verified 03/24/16 13:39) Hives Procedures/tests Complete & Pending: Procedures Performed prior 72 hours Category Date Time Status NM bone 3 phase [NM] Routine Exams 06/22/16 09:00 Completed VQ Scan [NM pul vent and perfuse] [NM] Routine Exams 06/25/16 09:00 Ordered Venous Doppler [EV venous imaging LE LT] Stat Y 06/22/16 17:24 Completed Date of admission: 06/19/16 20:06 Primary care physician: Nydia Goodrich CNP Consults: 06/20/16 08:56 Consult to Interventional Radiology [CONS] Routine Consulting Provider: Radiology Interventional Cols Reason for Consult: Left hip aspiration. Please send fluid for gram stain, culture, cell count with diff, and crystal analysis. Call Completed: No 06/19/16 21:07 Consult to Physical Therapy [CONS] Routine Comment: Evaluate, develop and implement POC 06/19/16 21:45 Consult to Orthopedic Surgery [CONS] Routine Consulting Provider: Orthopedics [facility] Reason for Consult: 66F with left hip replacement in 2011, now with left hip pain, unable to bear weight Call Completed: Yes Discharging clinician: Vandana Alexis Anticipated date of discharge: 06/23/16 - Patient Status Disposition: Home, Self-Care Condition: Fair Functional capacity at discharge: independent ambulation Overall status at discharge: patient is progressing back to baseline - Discharge Instructions Follow Up With: Nydia Goodrich CNP [Primary Care Provider] - Manuel Yeager MD [Partnered Physician] - 06/30/16 5:15 pm Ariel Sainz MD [Partnered Physician] - 08/30/16 1:00 pm - Diet and Activity Activity: increase activity as tolerated Diet: low fat, low cholesterol, low salt diet Hospital course: Ms. Damon is a 66 year old female with history of atrial fibrillation COPD and DVT was observed in the hospital after presenting with left hip pain. CT scan and x-rays of the hip did not show any acute fracture. Orthopedics was consulted. Given her severe pain, there was concern for infection. She underwent an unsuccessful arthrocentesis of the joint under IR guidance as there was no synovial fluid able to be obtained. She then underwent bone scan to look for any other source of infection and was found to have a slightly loosened acetabular cup which could be contributing to her pain. The patient also has been having left great toe pain and swelling with erythema concerning for gout. She has been started on treatment for this with prednisone as she has chronic kidney disease and would not tolerate NSAIDs and also is on Cardizem and would not be a candidate for colchicine. She will complete a steroid taper to help treat her condition. She will follow up with orthopedics for further management of both her hip pain and possible gout for long-term treatments. - Time Spent with Patient Total time spent providing and/or coordinating discharge services: Greater than 30 minutes (45 min) - Constitutional Vitals: Temp Pulse Resp BP Pulse Ox 98.1 F 87 16 108/61 94 L 06/23/16 06:50 06/23/16 09:09 06/23/16 06:50 06/23/16 09:09 06/23/16 09:09 General appearance: Present: A&O X 3, no acute distress, obese - Respiratory Respiratory exam: Present: CTAB. Absent: accessory muscle use, rales, rhonchi, wheezes - Cardiovascular Cardiovascular exam: Present: RRR, +S1, +S2. Absent: diastolic murmur, gallop, rubs, systolic murmur - Extremities Exam Extremities exam: Present: warm, radial pulses palpable and symetrical. Absent : calf tenderness, cyanotic, pedal edema Additional comments: erythema and tenderness involving the left great toe - Neurological Exam Neurological exam: Present: CN II-XII intact, oriented X3, no focal deficits. Absent: facial droop, speech deficit - Skin Skin exam: Present: dry, erythema (of the medial surface of the left great toe) , intact - VTE Documentation of Mechanical Device: Graduated compression elastic hosiery - Attending Attestation This document has been at least partially created by [employer] voice recognition technology by Dr. Alexis. Errors in grammar, wording or other phrases may exist. If errors are found after the documentation is signed, they will be addressed individually in the addendum section of this document when appropriate.
[2016-06-23] MEDS ORDERED: predniSONE 20 MG TABLET PO SCH (09:45)
[2016-06-23 10:53] VITALS: BP 143/66
--- NOTE | 2016-06-23 11:09 | Physician Discharge Referral ---
Home Health/Hosp Referral Info Transfer to: Home Health Provider in Charge Post Discharge: PCP - Diagnosis (1) Hip pain, left Priority: Primary Status: Acute (2) Anticoagulated on Coumadin Priority: Secondary Status: Acute (3) CKD (chronic kidney disease) Priority: Secondary Status: Chronic (4) Hypothyroidism Priority: Secondary Status: Chronic (5) Paroxysmal atrial fibrillation Priority: Secondary Status: Acute (6) COPD (chronic obstructive pulmonary disease) Priority: Secondary Status: Chronic (7) Recurrent deep vein thrombosis (DVT) Priority: Secondary Status: Acute (8) Acute gout involving toe Priority: Secondary Status: Suspected - Respiratory Orders Smoking Cessation: Smoking cessation has been advised. For more information, call the [place] Tobacco Quit Line at 1-830-UFMP-NOW. - Diet/Nutrition Diet/Nutrition Orders: Cardiac - Activity Activity Orders: Walker - Services Needed Following services are medically necessary services: Physical Therapy, Occupational Therapy - Transfer Medications Prescriptions: Enoxaparin [Lovenox *PHARMACY WT BASED*] 90 mg SQ Q12HR 4 Days Nystatin POWDER [Nystop] 1 appl TP BID #1 bottle Oxycodone HCl/Acetaminophen [Percocet 5-325 mg Tablet] 1 each PO Q4H PRN #20 tablet PRN Reason: Pain PredniSONE [Prednisone] 10 mg PO DAILY 16 Days Home Medications: ClonazePAM [Klonopin] 1 mg PO HS 05/09/15 [History] Diltiazem HCl [Diltiazem 24Hr Cd] 120 mg PO QAM 05/09/15 [History] Esomeprazole Magnesium [Nexium] 40 mg PO QAM 05/09/15 [History] Fenofibrate [Tricor] 145 mg PO DAILY 05/09/15 [History] Furosemide [Lasix] 20 mg PO DAILY 05/09/15 [History] Levothyroxine [Synthroid] 25 mcg PO 0630 05/09/15 [History] Lisinopril [Zestril] 5 mg PO DAILY 05/09/15 [History] Potassium Chloride 20 meq PO DAILY 05/09/15 [History] Warfarin [Coumadin] 5 mg PO SUMOWETHFRSA 09/04/15 [History] Bupropion HCl [Zyban] 150 mg PO BID 09/21/15 [History] Docusate [Colace] 100 mg PO BID 09/21/15 [History] Duloxetine [Cymbalta] 30 mg PO DAILY 09/21/15 [History] Lovastatin 10 mg PO HS 09/21/15 [History] Tizanidine HCl [Zanaflex] 4 mg PO HS 09/21/15 [History] Warfarin [Coumadin] 2.5 mg PO TU 06/19/16 [History] Enoxaparin [Lovenox *PHARMACY WT BASED*] 90 mg SQ Q12HR 4 Days 06/23/16 [Rx] Nystatin POWDER [Nystop] 1 appl TP BID #1 bottle 06/23/16 [Rx] Oxycodone HCl/Acetaminophen [Percocet 5-325 mg Tablet] 1 each PO Q4H PRN #20 tablet 06/23/16 [Rx] PredniSONE [Prednisone] 10 mg PO DAILY 16 Days 06/23/16 [Rx] Allergies/Adverse Reactions: Allergies Sulfa (Sulfonamide Antibiotics) Allergy (Mild, Verified 03/24/16 13:39) Rash hives acetaminophen [From Vicodin] Allergy (Verified 03/27/16 20:08) Rash atorvastatin [From Lipitor] Allergy (Verified 03/24/16 13:39) Hives codeine Allergy (Verified 03/24/16 13:39) Hives hydrocodone [From Vicodin] Allergy (Verified 03/27/16 20:08) Rash morphine Allergy (Verified 03/24/16 13:39) Hives nitrofurantoin [From Macrobid] Allergy (Verified 03/24/16 13:39) Hives phenazopyridine [From Pyridium] Allergy (Verified 03/24/16 13:39) Hives Certification: Further, I certify that my clinical findings support that this patient is homebound (i.e. absences from home require considerable and taxing effort and are for medical reasons or moravian services or infrequently or short duration when for other reasons) because: Homebound Reason: Patient requires assistance of a person or device to safely leave home Attestation: My signature below is to certify that this patient is under my care and that I, or nurse practitioner, or a physician's assistant winemaker working with me, has a face-to -face encounter with this patient.
--- NOTE | 2016-06-23 13:37 | Venous Imaging Report ---
LE Venous Duplex Patient Name:Ivanna Damon Order Number:[id number] Procedure Date:06/22/2016 Date:8Age:66 yrs Gender:Female Location:[facility] Room #: [id number] Finish Remover:Dianna Gutiérrez Referring MD:Vandana Alexis MD supervisor pole yard:Nydia Goodrich, BRAILLE [employer]ER Reading MD:Vinod Pugh MD Primary Indications:R/O Clot Secondary Indications: Risk Factors Yes/No Anticoagulants Yes Hx of DVT Yes Jarad Filter Yes Impressions: Left lower extremity: normal superficial and deep exam. Recommendations: Test completed on 06/22/2016 at 6:36:00 pm. Findings Venous Duplex Results: Left: Venous imaging of the lower extremity reveals full patency and normal vessel compressibility of the left distal iliac, left common femoral, left superficial femoral, left popliteal, left posterior tibial, left peroneal, left great saphenous and left lesser saphenous. Doppler signals in the evaluated veins were normal. Prior Study: No change compared to prior study dated: 03/29/2016. Lower Extremity Venous Duplex Side Vein Compress Spontaneous Flow Augment Diameter (cm) Depth (cm) Left Distal Iliac Normal Yes Phasic Yes Left Common Femoral Normal Yes Phasic Yes Left Superficial Femoral Normal Yes Phasic Yes Left Popliteal Normal Yes Phasic Yes Left Posterior Tibial Normal Yes Phasic Yes Left Peroneal Normal Yes Phasic Yes Left Great Saphenous Normal Yes Phasic Yes Left Lesser Saphenous Normal Yes Phasic Yes Updated by Vinod Pugh MD on 06/23/2016 1:33:22 PM electronically signed on 06/23/2016 1:33:45 PM with status of Final
[2016-06-23] MEDS ORDERED: *HR* Enoxaparin 100 MG/ML SYRINGE SQ SCH (18:00)
== END 2016-06-23 12:55 | disposition home health service (06) ==
LOC: EMEROO 16:10 → 3NENU 16:10 → SUATTDRO 20:06 → 3NENU 21:03
PROVIDERS: ADMIT Family Medicine; ATTEND Internal Medicine

== ENCOUNTER 2017-03-30 10:27 | Observation (INO) ==
[2017-03-30] MEDS ORDERED: 0.9 % Sodium Chloride 1,000 ML IVC ONE (10:38)
[2017-03-30 10:58] LABS: Basophils # 0.1 K/mcL (0.0-0.2); Basophils % 0.3 %; Eosinophils % 0.2 %; Hemoglobin 12.9 g/dL (11.5-15.4); Immature Granulocytes % 0.5 % (0-4); Lymphocytes # 1.3 K/mcL (0.6-4.6); Lymphocytes % 7.7 %; Mean Corpuscular HGB Conc 33.1 g/dL (31.6-35.5); Mean Corpuscular Hemoglobin 28.7 pg (28.0-33.3); Mean Corpuscular Volume 86.7 fL (83.0-100.0); Mean Platelet Volume 9.8 fL (9.4-12.4); Neutrophils # 14.7 K/mcL (1.6-8.9); Platelet Count 477 K/mcL (140-400); Red Cell Distribution Width 14.8 % (11.5-14.5); Segmented Neutrophils % 85.3 %
[2017-03-30 11:13] LABS: Albumin 3.8 g/dL (3.5-5.0); Bilirubin,Total 0.4 mg/dL (0.2-1.2); Calcium 10.2 mg/dL (8.6-10.8); Globulin 3.8 g/dL (2.4-3.5); Phosphorous 2.3 mg/dL (2.3-4.7); Potassium 3.6 mEq/L (3.5-4.5); Total Protein 7.6 g/dL (6.0-8.3)
--- NOTE | 2017-03-30 11:32 | Emergency Department Note ---
Disposition Clinical Impression: Partial small bowel obstruction, Generalized weakness Nausea & vomiting Qualifiers: Vomiting type: unspecified Vomiting Intractability: unspecified Qualified Code( s): R11.2 - Nausea with vomiting, unspecified Disposition: Admitted As Inpatient Condition: Fair Time of Disposition: 14:23 General Adult HPI - General Chief complaint: ED Weakness Stated complaint: weakness Time Seen by Provider: 03/30/17 10:38 Source: patient Limitations: no limitations Nursing Notes Reviewed: Yes Vital Signs Reviewed: Yes - History of Present Illness HPI Narrative: 67-year-old female who comes in and states she developed nausea vomiting since last night not able to keep anything down. States she developed some perioral numbness and some numbness of her face bilaterally. Patient initially seen by anirudh. They report on the NIH stroke scale was 0. Symptoms began at 6 AM. Pt Subjective Complaint: Nausea vomiting facial numbness Onset (ago): hour(s) Location: face, abdomen Radiation: non-radiation Pain Severity: moderate Pain Scale: 5 Quality: other (Crampy) Consistency: intermittent Improves with: nothing Worsens with: nothing Treatments Prior to Arrival: none - Related Data Home Medications Medication Instructions Recorded Confirmed ClonazePAM [Klonopin] 1 mg PO HS 05/09/15 03/30/17 Diltiazem HCl [Diltiazem 24Hr Cd] 120 mg PO QAM 05/09/15 03/30/17 Esomeprazole Magnesium [Nexium] 40 mg PO QAM 05/09/15 03/30/17 Furosemide [Lasix] 10 mg PO DAILY 05/09/15 03/30/17 Levothyroxine [Synthroid] 25 mcg PO 0630 05/09/15 03/30/17 Lisinopril [Zestril] 5 mg PO DAILY 05/09/15 03/30/17 Warfarin [Coumadin] 5 mg PO DAILY 09/04/15 03/30/17 DULoxetine [Cymbalta] 30 mg PO DAILY 09/21/15 03/30/17 Lovastatin 10 mg PO HS 09/21/15 03/30/17 Albuterol Sulfate [Ventolin Hfa] 2 puff IH Q4H PRN 03/30/17 03/30/17 BuPROPion XL (24 HR) [Wellbutrin 150 mg PO BID 03/30/17 03/30/17 XL] Fenofibrate Nanocrystallized 145 mg PO DAILY 03/30/17 03/30/17 [Tricor] Loratadine [Claritin] 10 mg PO DAILY 03/30/17 03/30/17 Montelukast [Singulair] 10 mg PO DAILY 03/30/17 03/30/17 Mv-Mn/FA/Vit K1/Lycop/Lut/Zeax 1 each PO DAILY 03/30/17 03/30/17 [Ocuvite Eye + Multi Tablet] Potassium Chloride [K-Tab ER] 20 meq PO DAILY 03/30/17 03/30/17 Allergies Allergy/AdvReac Type Severity Reaction Status Date / Time Sulfa (Sulfonamide Allergy Mild Rash Verified 07/10/16 12:26 Antibiotics) acetaminophen [From Vicodin] Allergy Rash Verified 07/10/16 12:26 atorvastatin [From Lipitor] Allergy Hives Verified 07/10/16 12:26 codeine Allergy Hives Verified 07/10/16 12:26 hydrocodone [From Vicodin] Allergy Rash Verified 07/10/16 12:26 morphine Allergy Hives Verified 07/10/16 12:26 nitrofurantoin Allergy Hives Verified 07/10/16 12:26 [From Macrobid] phenazopyridine Allergy Hives Verified 07/10/16 12:26 [From Pyridium] All systems ED: reviewed and negative except as stated. Constitutional: Denies: fever, chills, weakness, weight change Eyes: Denies: eye pain, eye discharge, vision change ENT ED: Denies: ear pain, throat pain, dental pain, hearing loss, epistaxis, congestion, dysphagia Cardiovascular: Denies: chest pain, palpitations, dyspnea on exertion, edema, syncope Respiratory: Denies: cough, dyspnea, wheezes, hemoptysis, stridor Gastrointestinal: Reports: abdominal pain, nausea, vomiting. Denies: diarrhea, constipation, hematemesis, melena, hematochezia Genitourinary: Denies: dysuria, frequency, hematuria, discharge Musculoskeletal: Denies: back pain, neck pain, arthralgia, myalgia Integumentary: Denies: rash, abrasion, lesions Neurological: Denies: headache, weakness, numbness, paresthesias, confusion, abnormal gait, vertigo Psychiatric: Denies: anxiety, depression, suicidal thoughts, homicidal thoughts , auditory hallucinations, visual hallucinations Endocrine: Denies: fatigue Hematological/Lymphatic: Denies: easy bleeding, easy bruising Allergic/Immunologic: Denies: facial swelling, urticaria Past Medical History - Past Medical History Medical history: Reports: non-contributory Surgical history: Reports: appendectomy, cholecystectomy, hip replacement (left) , orthopedic, other (right shoulder), ROBERTO/BSO, other Psychiatric history: Reports: anxiety, depression [employer] history: Reports: no [employer]IC history - Social History Smoking Status: Never smoker Smokeless Tobacco Status: No Alcohol use: Reports: none Drug use: Reports: none Physical Exam - General Limitations: no limitations General appearance: alert, in no apparent distress - Head Head exam: atraumatic, normocephalic, normal inspection - Eye Eye exam: Present: normal appearance, PERRL, EOMI - ENT ENT exam: normal exam, normal oropharynx, mucous membranes moist - Neck Neck exam: Present: normal inspection, full ROM, trachea midline - Chest Chest inspection: Present: normal inspection, symmetric chest wall rise - Respiratory Respiratory exam: Present: normal lung sounds bilaterally - Cardiovascular Cardiovascular exam: Present: regular rate, normal rhythm, normal heart sounds - Abdominal Exam Abdominal exam: Present: soft, tenderness. Absent: distention, guarding, rebound, rigidity - Extremities Exam Extremities exam: Present: normal inspection, full ROM. Absent: tenderness, pedal edema - Expanded Lower Extremity Exam Neurovascular/Tendon exam: Absent: motor deficit, sensory deficit, tendon deficit Gait: observed and normal - Back Exam Back exam: Present: normal inspection, full ROM. Absent: tenderness - Neurological Exam Neurological exam: Present: alert, oriented X3 - Psychiatric Psychiatric exam: Present: normal affect, normal mood - Skin Skin exam: Present: warm, dry, intact, normal color Course - Reevaluation(s) Reevaluation #1: 67-year-old with nausea vomiting since yesterday thought she had some food poisoning. We did obtain a CT scan which shows possibility of early partial small bowel obstruction. Patient will be admitted surgical consultation obtained. Time: 14:25 - Consultations Consultation #1: Discussed with Dr. Townsend, admit. Time: 14:25 Consultation #2: Discussed with Dr. Mueller, will see in consult. Time: 15:18 Vital Signs Temperature 98.5 F 03/30/17 10:30 Pulse Rate 112 03/30/17 10:30 Respiratory Rate 16 03/30/17 10:30 Blood Pressure 140/89 03/30/17 10:30 O2 Sat by Pulse Oximetry 98 03/30/17 10:30 Temperature 98.5 F 03/30/17 10:30 Pulse Rate 97 03/30/17 16:03 Respiratory Rate 14 03/30/17 16:03 Blood Pressure 150/68 03/30/17 16:03 O2 Sat by Pulse Oximetry 95 03/30/17 16:03 Oxygen Delivery Oxygen Delivery Room Air Medical Decision Making - Lab Data Result diagrams: 03/30/17 10:52 03/30/17 10:52 Lab Results 03/30/17 03/30/17 03/30/17 Range/Units 10:52 10:52 10:52 WBC 17.2 H (4.3-11.1) K/mcL RBC 4.50 (3.82-4.97) M/mcL Hgb 12.9 (11.5-15.4) g/dL Hct 39.0 (35.3-44.9) % MCV 86.7 (83.0-100.0) fL MCH 28.7 (28.0-33.3) pg MCHC 33.1 (31.6-35.5) g/dL RDW 14.8 H (11.5-14.5) % Plt Count 477 H (140-400) K/mcL MPV 9.8 (9.4-12.4) fL Immature Gran % 0.5 (0-4) % Seg Neutrophils % 85.3 % Lymphocytes % 7.7 % Monocytes % 6.0 % Eosinophils % 0.2 % Basophils % 0.3 % Neutrophils # 14.7 H (1.6-8.9) K/mcL Lymphocytes # 1.3 (0.6-4.6) K/mcL Monocytes # 1.0 (0.0-1.3) K/mcL Eosinophils # 0.0 (0.0-0.6) K/mcL Basophils # 0.1 (0.0-0.2) K/mcL PT (9.4-12.1) Seconds INR Sodium 145 (136-145) mEq/L Potassium 3.6 (3.5-4.5) mEq/L Chloride 109 (98-109) mEq/L Carbon Dioxide 26 (19-29) mEq/L BUN 25 H (7-20) mg/dL Creatinine 1.34 H (0.57-1.11) mg/dL Est GFR ( Amer) 48 L (> 60) Est GFR (Non-Af Amer) 39 L (> 60) BUN/Creatinine Ratio 19 (6-26) Glucose 137 H (70-99) mg/dL Calculated Osmolality 307 H (280-300) Calcium 10.2 (8.6-10.8) mg/dL Phosphorus 2.3 (2.3-4.7) mg/dL Magnesium 2.0 (1.6-2.6) mg/dL Total Bilirubin 0.4 (0.2-1.2) mg/dL AST 29 (5-34) Units/L ALT 27 (0-55) Units/L Alkaline Phosphatase 95 (38-126) Units/L Creatine Kinase 41 (29-168) Units/L Troponin I 0.00 (0-0.03) ng/mL Serum Total Protein 7.6 (6.0-8.3) g/dL Albumin 3.8 (3.5-5.0) g/dL Globulin 3.8 H (2.4-3.5) g/dL Albumin/Globulin Ratio 1.0 L (1.1-2.2) TSH 2.037 (0.350-4.840) mcIU/mL Urine Color (Yellow) Urine Clarity (Clear) Urine pH (5.0-8.0) pH Units Ur Specific [place] (1.010-1.025) Urine Protein (Neg-Trace) mg/dL Urine Glucose (UA) (Normal) mg/dL Urine Ketones (Negative) mg/dL Urine Blood (Negative) Urine Nitrite (Negative) Urine Bilirubin (Negative) Urine Urobilinogen (Normal) mg/dL Ur Leukocyte Esterase (Negative) Urine Microscopic RBC (0-3) per hpf Urine Microscopic WBC (0-3) per hpf Ur Squamous Epith Cells (None-Few) per lpf Urine Bacteria (None-Few) per hpf Ur Culture Indicated? (NO) 03/30/17 03/30/17 03/30/17 Range/Units 10:52 13:13 14:12 WBC (4.3-11.1) K/mcL RBC (3.82-4.97) M/mcL Hgb (11.5-15.4) g/dL Hct (35.3-44.9) % MCV (83.0-100.0) fL MCH (28.0-33.3) pg MCHC (31.6-35.5) g/dL RDW (11.5-14.5) % Plt Count (140-400) K/mcL MPV (9.4-12.4) fL Immature Gran % (0-4) % Seg Neutrophils % % Lymphocytes % % Monocytes % % Eosinophils % % Basophils % % Neutrophils # (1.6-8.9) K/mcL Lymphocytes # (0.6-4.6) K/mcL Monocytes # (0.0-1.3) K/mcL Eosinophils # (0.0-0.6) K/mcL Basophils # (0.0-0.2) K/mcL PT 15.2 H (9.4-12.1) Seconds INR 1.4 Sodium (136-145) mEq/L Potassium (3.5-4.5) mEq/L Chloride (98-109) mEq/L Carbon Dioxide (19-29) mEq/L BUN (7-20) mg/dL Creatinine (0.57-1.11) mg/dL Est GFR ( Amer) (> 60) Est GFR (Non-Af Amer) (> 60) BUN/Creatinine Ratio (6-26) Glucose (70-99) mg/dL Calculated Osmolality (280-300) Calcium (8.6-10.8) mg/dL Phosphorus (2.3-4.7) mg/dL Magnesium (1.6-2.6) mg/dL Total Bilirubin (0.2-1.2) mg/dL AST (5-34) Units/L ALT (0-55) Units/L Alkaline Phosphatase (38-126) Units/L Creatine Kinase (29-168) Units/L Troponin I 0.03 (0-0.03) ng/mL Serum Total Protein (6.0-8.3) g/dL Albumin (3.5-5.0) g/dL Globulin (2.4-3.5) g/dL Albumin/Globulin Ratio (1.1-2.2) TSH (0.350-4.840) mcIU/mL Urine Color Yellow (Yellow) Urine Clarity Cloudy A (Clear) Urine pH 7.5 (5.0-8.0) pH Units Ur Specific [place] 1.027 H (1.010-1.025) Urine Protein 100 H (Neg-Trace) mg/dL Urine Glucose (UA) Normal (Normal) mg/dL Urine Ketones Trace H (Negative) mg/dL Urine Blood Negative (Negative) Urine Nitrite Negative (Negative) Urine Bilirubin Small H (Negative) Urine Urobilinogen Normal (Normal) mg/dL Ur Leukocyte Esterase Negative (Negative) Urine Microscopic RBC 0-3 (0-3) per hpf Urine Microscopic WBC 0-3 (0-3) per hpf Ur Squamous Epith Cells Few (None-Few) per lpf Urine Bacteria Moderate H (None-Few) per hpf Ur Culture Indicated? NO (NO) - Radiology Data Radiology results reviewed: Yes I reviewed the patient's radiology results. Chest X-Ray 03/30/17 10:38 IMPRESSION: No evidence of acute cardiopulmonary disease. D/ / Talon Tobar MD / Talon Tobar MD Interpreting Provider: Talon Tobar MD Head CT 03/30/17 10:39 IMPRESSION: No acute intracranial abnormality. D/ / Shelton Whitten MD / Shelton Whitten MD Interpreting Provider: Shelton Whitten MD Abdomen/Pelvis CT 03/30/17 12:56 IMPRESSION: Suspected early/ partial distal small bowel obstruction. No definite transition point is identified. Consider a follow-up CT examination with oral contrast for further evaluation. Trace pelvic free fluid. D/ / Mohan Guerra MD / Mohan Guerra MD Interpreting Provider: Mohan Guerra MD - EKG Data EKG #1 EKG shows normal: sinus rhythm Rate: tachycardia Rhythm: NSR Interpretation: no acute changes
[2017-03-30 12:23] LABS: Thyroid Stimulating Hormone 2.037 mcIU/mL (0.350-4.840)
--- NOTE | 2017-03-30 13:23 | Internal Med History&Physical ---
Date of Encounter: 03/31/17 Time of Encounter: 13:22 Assessment and Plan (1) Nausea & vomiting Status: Acute Nausea and vomiting: Noted that patient has a persistent nausea and vomiting since 6 AM this morning. The vomiting was initially associated with the nausea. Bladder board of the vomiting is persistent, ongoing and associated with abdominal pain. CT scan of the abdomen pelvis was suggestive of a partial small bowel obstruction. Patient was evaluated by surgery and as per surgery there is no indication of surgical intervention, surgery signed off. Plan: -We will admit as observation. -We will continue IV hydration. Normal saline 70 mL/h. -We will recheck labs tomorrow morning. -Lisinopril on hold in view of elevated creatinine. -IV PPI once a day. -We will control nausea/vomiting with appropriate medication. Symptomatic treatment. -Blood culture/IV antibiotics Qualifiers: Vomiting type: unspecified Vomiting Intractability: unspecified Qualified Code(s): R11.2 - Nausea with vomiting, unspecified (2) Partial small bowel obstruction Status: Acute Patient evaluated by surgery and we will follow the recommendations. (3) Generalized weakness Status: Acute Patient had a circumoral numbness/occasional diplopia. CT scan of the head was negative. Ultrasound carotid: 03/29/2016: Bilateral 60-79% stenosis. Stress test: 08/19/2015: Negative for ischemia although patient had a chest pain during the procedure., gaited EF 68% Plan: We will obtain MRI of the brain if she passes the checklist. Ultrasound carotid. Echocardiogram. If we cannot get MRI of the brain and patient still has a symptom then possible evaluation by neurology tomorrow morning. (4) Paroxysmal atrial fibrillation Status: Chronic Presently in sinus rhythum. (5) Anticoagulated on Coumadin Status: Chronic Pharmacy to manage anticoagulation. (6) CKD (chronic kidney disease) Status: Chronic Likely acute on chronic. We will give IV fluids. We will recheck labs tomorrow morning. Qualifiers: Chronic kidney disease stage: stage 3 (moderate) Qualified Code(s): N18.3 - Chronic kidney disease, stage 3 (moderate) (7) DVT prophylaxis Status: Acute Coumadin Medical decision making: This patient has a moderate to severe risk of worsening in spite of being on appropriate medication due to the multiple underlying comorbid conditions. Internal Medicine - H&P: HPI Chief complaint: perioral numbness, diarrhea Admitted From: Emergency Dept Plans for Post Hospital Care: Home History of present illness: PCP: Dr Cuellar. Brief PMH: Diabetes mellitus, hypertension, dyslipidemia, chronic kidney disease stage III, multiple surgeries including appendectomy, cholecystectomy, small bowel resection and multiple orthopedic surgeries, atrial fibrillation, multiple deep vein thrombosis on Coumadin. History of present illness: Patient was unwell for past 3-4 days. She was started feeling nauseous since midnight. Patient claims that she has cooked some homemade food which is probably the reason for the same. Patient started vomiting since 6 AM this morning. Noted that initial episodes of vomiting were also stated with nausea. E it was noted that she was having persistent vomiting. Patient also claims that she has occasional diplopia. Patient also claims that she has circumoral numbness which was present when she was having active vomiting but now she does not have any more circumoral numbness. Patient denies headache, dizziness, dryness of mouth, chest pain, short of breath and diarrhea. Course in the emergency room: Patient called 911 as she was not able to tolerate this ongoing persistent vomiting. She was brought to the emergency room. CT scan of the head was negative for any acute intracranial event. CT scan of the abdomen shows possibility of a small bowel obstruction. Patient was evaluated by surgical team and they signed off in view of that is unlikely any surgical issue. Reason for admission: Severe dehydration secondary to acid with acute gastroenteritis. Patient has a cloudy urine and elevated white blood cell count which goes in favor of possible underlying infection. Family history: Noncontributory Past Med Surg Social Fam HX - Past Medical History Medical history: non-contributory Psychiatric history: anxiety, depression - Past Surgical History Surgical History: appendectomy, cholecystectomy, hip replacement (left), orthopedic, other (right shoulder), ROBERTO/BSO, other - Social History Smoking Status: Never smoker Smokeless Tobacco Status: No Alcohol use: none Drug use: none - Family History Father Living Status: Hx Family Cardiac Disorders: Yes Mother Living Status: Internal Medicine - H&P: Meds ClonazePAM [Klonopin] 1 mg PO HS 05/09/15 [History] Diltiazem HCl [Diltiazem 24Hr Cd] 120 mg PO QAM 05/09/15 [History] Esomeprazole Magnesium [Nexium] 40 mg PO QAM 05/09/15 [History] Furosemide [Lasix] 10 mg PO DAILY 05/09/15 [History] Levothyroxine [Synthroid] 25 mcg PO 0630 05/09/15 [History] Lisinopril [Zestril] 5 mg PO DAILY 05/09/15 [History] Warfarin [Coumadin] 5 mg PO DAILY 09/04/15 [History] DULoxetine [Cymbalta] 30 mg PO DAILY 09/21/15 [History] Lovastatin 10 mg PO HS 09/21/15 [History] Albuterol Sulfate [Ventolin Hfa] 2 puff IH Q4H PRN 03/30/17 [History] BuPROPion XL (24 HR) [Wellbutrin XL] 150 mg PO BID 03/30/17 [History] Fenofibrate Nanocrystallized [Tricor] 145 mg PO DAILY 03/30/17 [History] Loratadine [Claritin] 10 mg PO DAILY 03/30/17 [History] Montelukast [Singulair] 10 mg PO DAILY 03/30/17 [History] Mv-Mn/FA/Vit K1/Lycop/Lut/Zeax [Ocuvite Eye + Multi Tablet] 1 each PO DAILY 05/06 [History] Potassium Chloride [K-Tab ER] 20 meq PO DAILY 03/30/17 [History] 3 Allergy/AdvReac Type Severity Reaction Status Date / Time Sulfa (Sulfonamide Allergy Mild Rash Verified 07/10/16 12:26 Antibiotics) acetaminophen [From Vicodin] Allergy Rash Verified 07/10/16 12:26 atorvastatin [From Lipitor] Allergy Hives Verified 07/10/16 12:26 codeine Allergy Hives Verified 07/10/16 12:26 hydrocodone [From Vicodin] Allergy Rash Verified 07/10/16 12:26 morphine Allergy Hives Verified 07/10/16 12:26 nitrofurantoin Allergy Hives Verified 07/10/16 12:26 [From Macrobid] phenazopyridine Allergy Hives Verified 07/10/16 12:26 [From Pyridium] All Systems PM: A 10-system review of systems was performed and is negative for pertinent findings except as documented above in the HPI. - Constitutional Constitutional: no chills, no fever(s), no night sweats - EENT Eyes: diplopia, no change in vision, no discharge, no pain, no photophobia Ears: no ear discharge, no ear pain, no tinnitus Nose, mouth and throat: no dysphagia, no nasal discharge, no neck pain, no sore throat - Cardiovascular Cardiovascular ROS IM: lightheadedness, no chest pain, no diaphoresis, no dyspnea, no palpitations, no syncope - Respiratory Respiratory: no cough, no dyspnea, no wheezing, no excessive phlegm production - Gastrointestinal Gastrointestinal: abdominal pain, vomiting, no diarrhea, no hematemesis, no hematochezia, no melena, no nausea - Genitourinary Genitourinary: no change in urinary stream, no dysuria, no flank pain, no hematuria - Musculoskeletal Musculoskeletal ROS IM: no numbness, no tingling - Integumentary Integumentary IM: no rash, no unusual bruising - Neurological Neurological ROS: no confusion, no convulsions, no focal weakness, no numbness, no tingling, no tremor(s) - Hematologic/Lymphatic Hematologic/Lymphatic: no easy bruising - Constitutional Vitals: Temp Pulse Resp BP Pulse Ox 98.5 F 94 16 182/115 99 03/30/17 10:30 03/30/17 13:06 03/30/17 13:06 03/30/17 13:06 03/30/17 13:06 General appearance: Present: A&O X 3, pleasant, no acute distress, answers questions appropriately - Head Head exam: Present: atraumatic, normocephalic - Eye Eye exam: Present: PERRL, conjuntiva pink, sclera anicteric Pupils: Present: PERRL - Neck Neck exam general surgery: Present: supple, trachea midline. Absent: lymphadenopathy - Respiratory Respiratory exam: Present: CTAB. Absent: accessory muscle use, rales, rhonchi, wheezes - Cardiovascular Cardiovascular exam: Present: RRR, +S1, +S2. Absent: diastolic murmur, gallop, rubs, systolic murmur - GI/Abdominal GI/Abdominal exam: Present: normal bowel sounds, soft, no peritoneal signs. Absent: distended, tenderness - Extremities Exam Extremities exam: Present: warm, radial pulses palpable and symmetrical. Absent : calf tenderness, cyanotic, pedal edema - Neurological Exam Neurological exam: Present: CN II-XII intact, oriented X3, no focal deficits. Absent: pronater drift, facial droop, speech deficit - Skin Skin exam: Present: dry, intact Internal Med - H&P Results - Labs CBC & Chem 7: 03/31/17 01:04 03/31/17 01:04 Labs: Short CBC 03/30/17 Range/Units 10:52 WBC 17.2 H (4.3-11.1) K/mcL Hgb 12.9 (11.5-15.4) g/dL Hct 39.0 (35.3-44.9) % Plt Count 477 H (140-400) K/mcL Neutrophils # 14.7 H (1.6-8.9) K/mcL BMP 03/30/17 10:52 Sodium 145 Potassium 3.6 Chloride 109 Carbon Dioxide 26 BUN 25 H Creatinine 1.34 H Glucose 137 H Calcium 10.2 Cardiac Enzymes 03/30/17 Range/Units 10:52 Troponin I 0.00 (0-0.03) ng/mL Liver Function 03/30/17 Range/Units 10:52 Total Bilirubin 0.4 (0.2-1.2) mg/dL AST 29 (5-34) Units/L ALT 27 (0-55) Units/L Alkaline Phosphatase 95 (38-126) Units/L Albumin 3.8 (3.5-5.0) g/dL Labs discussed with the emergency room physician. - Impressions ITS Impressions Chest X-Ray 03/30/17 10:38 IMPRESSION: No evidence of acute cardiopulmonary disease. D/ / Talon Tobar MD / Talon Tobar MD Interpreting Provider: Talon Tobar MD Head CT 03/30/17 10:39 IMPRESSION: No acute intracranial abnormality. D/ / Shelton Whitten MD / Shelton Whitten MD Interpreting Provider: Shelton Whitten MD
[2017-03-30] MEDS ORDERED: Ondansetron 4 MG/2 ML VIAL IVP PRN (13:24)
[2017-03-30] MEDS ORDERED: Naloxone 0.4 MG/ML INJ IVP PRN (13:24)
[2017-03-30] MEDS ORDERED: Acetaminophen 325 MG TABLET PO PRN (13:24)
[2017-03-30] MEDS ORDERED: 0.9 % Sodium Chloride 1,000 ML IVC SCH (13:30)
[2017-03-30 13:47] LABS: Bilirubin,Urine Small (Negative); Clarity,Urine Cloudy (Clear); Color,Urine Yellow (Yellow); Glucose,Urine (UA) Normal (Normal); Ketones,Urine Trace mg/dL (Negative)
[2017-03-30 13:48] LABS: Blood,Urine Negative (Negative); Leukocyte Esterase,Urine Negative (Negative); Nitrite,Urine Negative (Negative); PH,Urine 7.5 pH Units (5.0-8.0); Protein,Urine 100 mg/dL (Neg-Trace); Specific Gravity,Urine 1.027 (1.010-1.025); Urobilinogen,Urine Normal (Normal)
[2017-03-30 13:57] LABS: Bacteria,Urine Moderate per hpf (None-Few); RBC,Urine 0-3 per hpf (0-3); Squamous Epithelial Cell,Urine Few per lpf (None-Few); WBC,Urine 0-3 per hpf (0-3)
[2017-03-30 15:18] LABS: INR 1.4; Prothrombin Time 15.2 Seconds (9.4-12.1)
--- NOTE | 2017-03-30 16:36 | Event Note ---
Date of Encounter: 03/30/17 Time of Encounter: 15:30 Ivanna is a pleasant 67 year old female with multiple complaints. The surgery has been asked to evaluate the patient for a questionable small bowel obstruction. She reports left upper quadrant pain just below her ribs for the past 4 to 5 years. She has an extensive medical history including CKD, HTN, DM, and surgeries include appendectomy, cholecystectomy, small bowel resection, and multiple orthopedic surgeries. She states what prompted her to come to the emergency department was she began feeling nausea, vomiting, and sharp abdominal pain shortly after eating some chicken and broccoli (that felt different from her chronic LUQ pain). She states she began vomiting around 6 AM this morning and is unable to tell me how many times she vomited. She states that she also feels that she possibly has a UTI given that she has had dark urine, difficulty urinating, and feeling of lower abdominal discomfort. Ms. Damon further states that her abdominal discomfort has resolved, she does not have any nausea, and she reports a bowel movement while in the emergency department that was, "soft like toothpaste." She is drinking water upon my entering of her room. She denies fevers or chills. Her CT scan of her abd/ pelvis showed Suspected early/partial distal small bowel obstruction. No definite transition point is identified. Pt states her symptoms do not feel similar to her previous SBO and that overall her abdominal symptoms have resolved. There is no clear role/indication for surgical intervention at this time. Surgery will sign off. I did discuss the patient's assessment and review of chart with Dr. Ariza, in the emergency department. If questions or needs arise, please reconsult surgery. Thank you for allowing us to participate in Ms Damon's care.
[2017-03-30] MEDS ORDERED: *HR* Warfarin 5 MG TABLET PO ONE (18:00)
[2017-03-30] MEDS ORDERED: Warfarin perPT PO PRN (18:00)
[2017-03-30] MEDS ORDERED: clonazePAM 1 MG TABLET PO SCH (21:00)
[2017-03-30] MEDS ORDERED: tiZANidine 4 MG TABLET PO SCH (21:00)
[2017-03-30] MEDS ORDERED: BuPROPion SR (12 HR) 150 MG TABLET PO SCH (21:00)
--- NOTE | 2017-03-30 21:49 | Event Note ---
Date of Encounter: 03/30/17 Time of Encounter: 21:[address] Smith/ [facility] about critical MRI brain results. Patient has two small < 5mm foci of hemorrhagic infarcts in the silviano with no mass effect. Of note, patient has been on Coumadin for current DVTs in right arm and right leg and has an IVC filter in place. Her most recent INR was 1.5. Patient seen and examined at bedside. Patient reports ongoing double vision, bilateral face and feet numbness, and weakness in all extremities with symptoms present since 6am today. Neurologic exam revealed diplopia, decreased residential director strength bilateral upper extremities, 4/5 muscle strength bilateral legs, and subjective numbness in lower face and bilateral legs. Case discussed neurologist medical consultant, Dr. Russell, who recommended transferring patient to a facility with neurosurgical coverage due to high risk for acute worsening of hemorrhagic infarcts in the silviano within a compact space at risk for cerebral edema. NIHSS performed by RN, maintain SBP < 140, and Coumadin held. Given current symptoms, location and size of lesion, and stable vital signs, will proceed with transfer at this time. Initially call was placed to transfer center at [facility]. We were informed patient's hospital stay would not be covered due to patient's insurance. Spoke with patient and she agreed to transfer to [facility] instead. Call placed to [facility] and MRI results were sent via fax. Patient was accepted to [facility] and vital signs were stable upon EMS arrival. Plan discussed with and agreed upon with Dr. Edgar. Last Vital Signs Temp 98.6 F 03/30/17 23:42 Pulse 92 03/30/17 23:42 Resp 17 03/30/17 23:42 BP 137/63 03/30/17 23:42 Pulse Ox 96 03/30/17 23:[address] 03/30/17 10:39 IMPRESSION: No acute intracranial abnormality. D/ / Shelton Whitten MD / Shelton Whitten MD Interpreting Provider: Shelton Whitten MD Brain MRI 03/30/17 20:00 IMPRESSION: 1. Acute tiny hemorrhagic lacunar infarcts in the dorsal silviano. 2. No evidence of acute ischemia or mass effect. Findings were discussed with Dr. Bradley at 9:46 pm on 03/30/2017. D/ / Sloan Smith MD / Sloan Smith MD Interpreting Provider: Sloan Smith MD
[2017-03-30 23:43] VITALS: BP 137/63
[2017-03-31 01:15] LABS: Basophils # 0.1 K/mcL (0.0-0.2); Basophils % 0.7 %; Eosinophils # 0.3 K/mcL (0.0-0.6); Eosinophils % 2.8 %; Hematocrit 32.4 % (35.3-44.9); Immature Granulocytes % 0.3 % (0-4); Lymphocytes # 2.5 K/mcL (0.6-4.6); Lymphocytes % 22.6 %; Mean Corpuscular HGB Conc 32.7 g/dL (31.6-35.5); Mean Corpuscular Hemoglobin 28.8 pg (28.0-33.3); Monocytes # 0.8 K/mcL (0.0-1.3); Monocytes % 7.7 %; Neutrophils # 7.2 K/mcL (1.6-8.9); Platelet Count 351 K/mcL (140-400); Red Blood Count 3.68 M/mcL (3.82-4.97); Red Cell Distribution Width 14.9 % (11.5-14.5); Segmented Neutrophils % 65.9 %
[2017-03-31 01:22] LABS: Hemoglobin 10.6 g/dL (11.5-15.4)
[2017-03-31 01:31] LABS: INR 1.5; Prothrombin Time 16.6 Seconds (9.4-12.1)
[2017-03-31 01:32] LABS: Albumin/Globulin Ratio 0.9 (1.1-2.2); Bilirubin,Total 0.3 mg/dL (0.2-1.2); Chol/HDL Ratio 2.8 (0-4.9); Globulin 3.3 g/dL (2.4-3.5); Magnesium 1.8 mg/dL (1.6-2.6); Phosphorous 2.4 mg/dL (2.3-4.7); Potassium 3.2 mEq/L (3.5-4.5); Total Protein 6.3 g/dL (6.0-8.3)
--- NOTE | 2017-03-31 03:22 | Discharge Summary ---
Date of Encounter: 03/30/17 Time of Encounter: 21:50 - Discharge Diagnosis (1) Acute hemorrhagic infarction of brain Priority: Primary Status: Acute (2) Anticoagulated on Coumadin Priority: Primary Status: Chronic (3) Recurrent deep vein thrombosis (DVT) Priority: Primary Status: Chronic (4) Paroxysmal atrial fibrillation Priority: Secondary Status: Chronic (5) COPD (chronic obstructive pulmonary disease) Priority: Secondary Status: Chronic Qualifiers: COPD type: chronic bronchitis Chronic bronchitis type: unspecified Qualified Code(s): J42 - Unspecified chronic bronchitis (6) CKD (chronic kidney disease) Priority: Secondary Status: Chronic Qualifiers: Chronic kidney disease stage: stage 3 (moderate) Qualified Code(s): N18.3 - Chronic kidney disease, stage 3 (moderate) (7) Hypothyroidism Priority: Secondary Status: Chronic Qualifiers: Hypothyroidism type: unspecified Qualified Code(s): E03.9 - Hypothyroidism , unspecified (8) Partial small bowel obstruction Priority: Primary Status: Acute - Discharge Medications Home Medications: ClonazePAM [Klonopin] 1 mg PO HS 05/09/15 [History] Diltiazem HCl [Diltiazem 24Hr Cd] 120 mg PO QAM 05/09/15 [History] Esomeprazole Magnesium [Nexium] 40 mg PO QAM 05/09/15 [History] Furosemide [Lasix] 10 mg PO DAILY 05/09/15 [History] Levothyroxine [Synthroid] 25 mcg PO 0630 05/09/15 [History] Lisinopril [Zestril] 5 mg PO DAILY 05/09/15 [History] Warfarin [Coumadin] 5 mg PO DAILY 09/04/15 [History] DULoxetine [Cymbalta] 30 mg PO DAILY 09/21/15 [History] Lovastatin 10 mg PO HS 09/21/15 [History] Albuterol Sulfate [Ventolin Hfa] 2 puff IH Q4H PRN 03/30/17 [History] BuPROPion XL (24 HR) [Wellbutrin XL] 150 mg PO BID 03/30/17 [History] Fenofibrate Nanocrystallized [Tricor] 145 mg PO DAILY 03/30/17 [History] Loratadine [Claritin] 10 mg PO DAILY 03/30/17 [History] Montelukast [Singulair] 10 mg PO DAILY 03/30/17 [History] Mv-Mn/FA/Vit K1/Lycop/Lut/Zeax [Ocuvite Eye + Multi Tablet] 1 each PO DAILY 05/06 [History] Potassium Chloride [K-Tab ER] 20 meq PO DAILY 03/30/17 [History] Allergies/Adverse Reactions: 3 Allergy/AdvReac Type Severity Reaction Status Date / Time Sulfa (Sulfonamide Allergy Mild Rash Verified 07/10/16 12:26 Antibiotics) acetaminophen [From Vicodin] Allergy Rash Verified 07/10/16 12:26 atorvastatin [From Lipitor] Allergy Hives Verified 07/10/16 12:26 codeine Allergy Hives Verified 07/10/16 12:26 hydrocodone [From Vicodin] Allergy Rash Verified 07/10/16 12:26 morphine Allergy Hives Verified 07/10/16 12:26 nitrofurantoin Allergy Hives Verified 07/10/16 12:26 [From Macrobid] phenazopyridine Allergy Hives Verified 07/10/16 12:26 [From Pyridium] Procedures/tests Complete & Pending: Procedures Performed prior 72 hours Category Date Time Status MR head/brain wo con [MR] Stat MRI 03/30/17 20:00 Completed EV carotid duplex imaging BI Stat Y 03/30/17 20:01 Ordered Date of admission: 03/30/17 15:26 Primary care physician: Nydia Goodrich CNP Discharging clinician: Clayton Dwyer Anticipated date of discharge: 03/30/17 - Patient Status Disposition: Transfer Critical Access Hosp Condition: Critical Overall status at discharge: patient is not back to baseline - Discharge Instructions Follow Up With: Nydia Goodrich CNP [Primary Care Provider] - Hospital course: Ms. Damon is a 67 year old female with a PMH of recurrent DVTs in right arm and right leg, prior IVC filter placement, and current anticoagulation with Warfarin who presented to the ED c/o nausea, vomiting, and not able to keep anything down since last night. States reported developing circumoral numbness of her face bilaterally and diplopia at 6AM. Initial NIH stroke scale was 0 in the ED on arrival. CT scan of the head was negative for any acute intracranial event. CT scan of the abdomen revealed possible small bowel obstruction. Patient was evaluated by surgical team and they signed off. Patient's admitting diagnosis was severe dehydration secondary to acute gastroenteritis. However, MRI brain was ordered due to weakness, circumoral numbness, and diplopia. MRI revealed two small < 5mm foci of hemorrhagic infarcts in the silviano with no mass effect. Her most recent INR was 1.5. Patient reported ongoing double vision, bilateral face and feet numbness, and weakness in all extremities with symptoms present since 6am today. Case discussed neurologist nutritionist, Dr. Russell, who recommended transferring patient to a facility with neurosurgical coverage due to high risk for acute worsening of hemorrhagic infarcts in the silviano within a compact space at risk for cerebral edema. Call placed to [facility] and MRI results were sent via fax. Patient was accepted to [facility] and vital signs were stable upon EMS arrival. Plan discussed with and agreed upon with Dr. Edgar. - Time Spent with Patient Total time spent providing and/or coordinating discharge services: 50 minutes Greater than 30 minutes - Constitutional Vitals: Temp Pulse Resp BP Pulse Ox 98.6 F 92 17 137/63 96 03/30/17 23:42 03/30/17 23:42 03/30/17 23:42 03/30/17 23:42 03/30/17 23:42 General appearance: Present: cooperative, mild distress, A&O X 3, pleasant, answers questions appropriately - Head Head exam: Present: atraumatic, normal inspection, normocephalic - Eye Eye exam: Present: normal appearance. Absent: EOMI Pupils: Present: PERRL - ENT ENT exam: Present: mucous membranes moist, normal oropharynx - Neck Neck exam general surgery: Present: normal inspection, supple. Absent: tenderness - Respiratory Respiratory exam: Present: CTAB. Absent: wheezes - Cardiovascular Cardiovascular exam: Present: RRR, +S1, +S2 - GI/Abdominal GI/Abdominal exam: Present: normal bowel sounds, soft, tenderness (mild diffuse TTP). Absent: guarding - Extremities Exam Extremities exam: Present: calf tenderness (right), normal capillary refill, pedal edema (3+ RLE pitting edema, no LLE edema), tenderness, warm. Absent: normal inspection - Back Exam Back exam: Present: normal inspection. Absent: tenderness - Neurological Exam Neurological exam: Present: altered, motor sensory deficit (circumoral parastesia, ). Absent: CN II-XII intact, facial droop, speech deficit Additional comments: decreased zipper repairer strength bilateral upper extremities, 4/5 muscle strength bilateral legs, and subjective numbness in lower face and bilateral legs. - Expanded Neurological Exam Neurological exam expanded: Present: protecting the airway. Absent: expressive aphasia, tremor Patient oriented to: Present: person, place, time Speech: Absent: garbled, slurred Cranial Nerves: EOM's intact PM: Abnormal Left, Abnormal Right (difficultly tracking finger with eyes due to diplopia), gag reflex PM: Normal, tongue deviation PM: Normal Cerebellar function: finger to nose: Normal Sensory exam: upper extremity light touch: Abnormal Left, Abnormal Right Neuro motor strength exam: LLE: 4, RLE: 4 Coma Scale Eye Opening: Spontaneous Coma Scale Motor Response: Obeys Commands Coma Scale Verbal Response: Oriented Coma Scale Total: 15 - Psychiatric Psychiatric exam: Present: anxious, normal mood - Skin Skin exam: Present: dry, erythema (RLE around the distal calf), warm - Stroke Reason for No Antithrombin at DC: Medical contraindication (Hemorrhagic infarcts ) Reason for No Anticoagulant at DC: Medical contraindication (Hemorrhagic infarcts) Contraindication Not Initiating IV-Tpa: Not Indicated - NIHSS Score of "Zero" Onset of Symptoms Date: 03/30/17 Onset of Symptoms Time: 06:00 Symptom Onset Unknown: No Contraindication No Statin at DC: Medical contraindication ([facility]arns[facility] to [facility]) - VTE Reasons for not Prescribing Prophylaxis: Medical contraindication (Hemorrhagic infarcts) Contraindication No Overlap Therapy: Medical contraindication Deep Vein Thrombosis/Pulmonary Embolism Present on Admission: Yes
[2017-03-31] MEDS ORDERED: Levothyroxine 25 MCG TABLET PO SCH (06:30)
[2017-03-31] MEDS ORDERED: Furosemide 20 MG TABLET PO SCH (09:00)
[2017-03-31] MEDS ORDERED: Fenofibrate 54 MG TABLET PO SCH (09:00)
[2017-03-31] MEDS ORDERED: Pantoprazole 40 MG VIAL IVP SCH (09:00)
[2017-03-31] MEDS ORDERED: Diltiazem CD (24hr) 120 MG CAPSULE PO SCH (09:00)
--- NOTE | 2017-03-31 19:54 | Electrocardiograph Report ---
[place] [id number] Test Date: 2017-03-30 Pat Name: Ivanna Damon Department: 103 Room: 3A44 Gender: F Senior Relationship Manager: : [id number] Requested By: Adam Marrero Order Number: [id number] Reading MD: Cyrus Pantoja MD Measurements Intervals [place] Rate: 107 P: 50 MD: 155 QRS: -11 QRSD: 82 T: 40 QT: 332 QTc: 395 Interpretive Statements SINUS TACHYCARDIA VOLTAGE CRITERIA FOR LVH Electronically Signed On 03-31-2017 19:52:49 EDT by Cyrus Pantoja MD
[2017-04-05] MEDS ORDERED: *HR* Warfarin 2.5 MG TABLET PO SCH (18:00)
== END 2017-03-31 01:45 | disposition critical access hospital (66) ==
LOC: 3ANU 10:27 → EMEROO 10:27 → 3ANU 16:30
PROVIDERS: ADMIT Internal Medicine; ATTEND Internal Medicine

== ENCOUNTER 2020-06-19 19:32 | Inpatient (IN) ==
[2020-06-19] MEDS ORDERED: Isovue-370 500 ML BOTTLE IVP ONE (19:46)
[2020-06-19] MEDS ORDERED: 0.9 % Sodium Chloride 1,000 ML IVC ONE (19:46)
[2020-06-19 20:40] LABS: Basophils # 0.1 K/mcL (0.0-0.2); Basophils % 0.4 %; Eosinophils # 0.1 K/mcL (0.0-0.6); Eosinophils % 0.7 %; Hematocrit 42.6 % (35.3-44.9); Hemoglobin 13.2 g/dL (11.5-15.4); Immature Granulocytes % 0.6 % (0-4); Lymphocytes # 1.2 K/mcL (0.6-4.6); Lymphocytes % 6.4 %; Mean Corpuscular Volume 90.3 fL (83.0-100.0); Mean Platelet Volume 10.2 fL (9.4-12.4); Monocytes # 0.8 K/mcL (0.0-1.3); Monocytes % 4.1 %; Neutrophils # 16.2 K/mcL (1.6-8.9); Platelet Count 479 K/mcL (140-400); Red Blood Count 4.72 M/mcL (3.82-4.97); Red Cell Distribution Width 14.8 % (11.5-14.5); Segmented Neutrophils % 87.8 %; White Blood Count 18.4 K/mcL (4.3-11.1)
[2020-06-19 20:43] LABS: INR 2.2; Prothrombin Time 24.5 Seconds (9.4-12.1)
[2020-06-19 21:03] LABS: Albumin 4.1 g/dL (3.5-5.7); Albumin/Globulin Ratio 1.2 (1.1-2.2); Bilirubin,Direct 0.1 mg/dL (0.0-0.2); Bilirubin,Indirect 0.4 mg/dL (0.0-1.0); Bilirubin,Total 0.5 mg/dL (0.3-1.0); Calcium 10.1 mg/dL (8.6-10.3); Globulin 3.5 g/dL (2.4-3.5); Potassium 3.7 mEq/L (3.5-5.1); Total Protein 7.6 g/dL (6.4-8.9)
[2020-06-19 21:14] LABS: Troponin I 0.04 ng/mL (< 0.04)
[2020-06-19 22:15] LABS: Bilirubin,Urine Negative (Negative); Blood,Urine Negative (Negative); Clarity,Urine Clear (Clear); Color,Urine Yellow (Yellow); Glucose,Urine (UA) Normal (Normal); Hyaline Casts,Urine Moderate per lpf (None Seen); Ketones,Urine Trace mg/dL (Negative); Leukocyte Esterase,Urine Negative (Negative); Mucus,Urine Few per lpf (None-Few); Nitrite,Urine Negative (Negative); PH,Urine 7.5 pH Units (5.0-8.0); Protein,Urine 50 mg/dL (Neg-Trace); RBC,Urine 0-3 per hpf (0-3); Specific Gravity,Urine 1.019 (1.010-1.025); Urobilinogen,Urine Normal (Normal); White Blood Cell Casts,Urine Few per lpf (None Seen)
[2020-06-19] MEDS: 0.9 % Sodium Chloride 1,000 ML IVC SCH (22:49)
[2020-06-20] MEDS ORDERED: Naloxone 0.4 MG/ML INJ IVP PRN (01:07)
[2020-06-20] MEDS ORDERED: Ondansetron 4 MG/2 ML VIAL IVP PRN (01:07)
[2020-06-20 02:45] LABS: Basophils # 0.1 K/mcL (0.0-0.2); Basophils % 0.5 %; Eosinophils # 0.1 K/mcL (0.0-0.6); Hematocrit 37.5 % (35.3-44.9); Immature Granulocytes % 0.6 % (0-4); Lymphocytes # 2.1 K/mcL (0.6-4.6); Lymphocytes % 16.4 %; Mean Corpuscular HGB Conc 30.7 g/dL (31.6-35.5); Mean Corpuscular Hemoglobin 27.8 pg (28.0-33.3); Mean Corpuscular Volume 90.6 fL (83.0-100.0); Monocytes # 0.9 K/mcL (0.0-1.3); Monocytes % 7.5 %; Neutrophils # 9.3 K/mcL (1.6-8.9); Platelet Count 413 K/mcL (140-400); Red Blood Count 4.14 M/mcL (3.82-4.97); Red Cell Distribution Width 15.1 % (11.5-14.5); White Blood Count 12.5 K/mcL (4.3-11.1)
[2020-06-20] MEDS ORDERED: *HR* LORazepam 2 MG/ML VIAL IVP ONE (02:47)
[2020-06-20 02:55] LABS: Hemoglobin 11.5 g/dL (11.5-15.4)
[2020-06-20 03:14] LABS: Calcium 8.8 mg/dL (8.6-10.3); Magnesium 2.1 mg/dL (1.6-2.6); Phosphorous 2.9 mg/dL (2.7-4.5); Potassium 3.7 mEq/L (3.5-5.1); Troponin I 0.08 ng/mL (< 0.04)
[2020-06-20 03:15] LABS: INR 2.1; Prothrombin Time 24.1 Seconds (9.4-12.1)
[2020-06-20] MEDS ORDERED: Perflutren Lipid Microsphere 1.3 ML in 0.9 % Sodium Chloride 8.7 ML IVP PRN (08:45)
[2020-06-20] MEDS: 0.9 % Sodium Chloride 1,000 ML IVC SCH ×2 (13:01→22:27)
[2020-06-20] MEDS: Chloraseptic Spray 177 ML BOTTLE MM PRN ×2 (16:05→20:35)
[2020-06-20] MEDS: cefTRIAXone 1,000 MG in Water for inj. (sterile) 10 ML IVP SCH (17:52)
[2020-06-21] MEDS: Melatonin 3 MG TABLET PO PRN ×2 (03:34→22:10)
[2020-06-21] MEDS: Levothyroxine 25 MCG TABLET PO SCH (06:50)
[2020-06-21 07:12] LABS: Basophils # 0.1 K/mcL (0.0-0.2); Basophils % 0.4 %; Eosinophils # 0.3 K/mcL (0.0-0.6); Eosinophils % 2.8 %; Hematocrit 34.3 % (35.3-44.9); Hemoglobin 10.5 g/dL (11.5-15.4); Immature Granulocytes % 0.4 % (0-4); Lymphocytes # 2.2 K/mcL (0.6-4.6); Lymphocytes % 17.7 %; Mean Corpuscular HGB Conc 30.6 g/dL (31.6-35.5); Mean Corpuscular Hemoglobin 27.4 pg (28.0-33.3); Mean Corpuscular Volume 89.6 fL (83.0-100.0); Monocytes # 0.8 K/mcL (0.0-1.3); Monocytes % 6.5 %; Neutrophils # 8.8 K/mcL (1.6-8.9); Platelet Count 395 K/mcL (140-400); Red Blood Count 3.83 M/mcL (3.82-4.97); Red Cell Distribution Width 15.3 % (11.5-14.5); Segmented Neutrophils % 72.2 %; White Blood Count 12.1 K/mcL (4.3-11.1)
[2020-06-21 07:36] LABS: BUN/Creatinine Ratio 22 (6-26); Blood Urea Nitrogen 21 mg/dL (8-23); Calcium 8.9 mg/dL (8.6-10.3); Carbon Dioxide 21 mEq/L (23-29); Chloride 112 mEq/L (98-107); Glucose 75 mg/dL (70-105); Osmolality,Calculated 300 (280-300); Potassium 3.4 mEq/L (3.5-5.1); Sodium 144 mEq/L (136-145); Troponin I < 0.03 ng/mL (< 0.04); eGFR For African Americans > 60 (> 60); eGFR For Non-African Americans 59 (> 60)
[2020-06-21] MEDS: Regadenoson 0.4 MG/5 ML SYRINGE IVP ONE ×2 (08:35→10:55)
[2020-06-21] MEDS: DilTIAZem CD (24hr) 120 MG CAP.ER.24H PO SCH (08:35)
[2020-06-21] MEDS: 0.9 % Sodium Chloride 1,000 ML IVC SCH (08:37)
[2020-06-21] MEDS: cefTRIAXone 1,000 MG in Water for inj. (sterile) 10 ML IVP SCH (18:39)
[2020-06-21] MEDS ORDERED: *HR* Metoprolol 5 MG/5 ML VIAL IVP PRN (20:22)
[2020-06-22] MEDS: 0.9 % Sodium Chloride 1,000 ML IVC SCH ×3 (00:20→10:56)
[2020-06-22 02:53] LABS: Hematocrit 36.5 % (35.3-44.9); Mean Corpuscular HGB Conc 30.1 g/dL (31.6-35.5); Mean Corpuscular Volume 89.7 fL (83.0-100.0); Mean Platelet Volume 10.3 fL (9.4-12.4); Platelet Count 382 K/mcL (140-400); Red Blood Count 4.07 M/mcL (3.82-4.97); Red Cell Distribution Width 15.1 % (11.5-14.5); White Blood Count 10.3 K/mcL (4.3-11.1)
[2020-06-22 03:13] LABS: Alanine Aminotransferase 14 Units/L (7-52); Albumin 3.3 g/dL (3.5-5.7); Albumin/Globulin Ratio 1.2 (1.1-2.2); Alkaline Phosphatase 68 Units/L (34-104); Aspartate Amino Transferase 24 Units/L (13-39); BUN/Creatinine Ratio 21 (6-26); Bilirubin,Total 0.3 mg/dL (0.3-1.0); Blood Urea Nitrogen 16 mg/dL (8-23); Calcium 8.7 mg/dL (8.6-10.3); Carbon Dioxide 19 mEq/L (23-29); Chloride 109 mEq/L (98-107); Globulin 2.8 g/dL (2.4-3.5); Glucose 58 mg/dL (70-105); Magnesium 1.6 mg/dL (1.6-2.6); Osmolality,Calculated 293 (280-300); Potassium 3.3 mEq/L (3.5-5.1); Sodium 142 mEq/L (136-145); Total Protein 6.1 g/dL (6.4-8.9); eGFR For African Americans > 60 (> 60); eGFR For Non-African Americans > 60 (> 60)
[2020-06-22] MEDS: Levothyroxine 25 MCG TABLET PO SCH (06:38)
[2020-06-22] MEDS: DilTIAZem CD (24hr) 120 MG CAP.ER.24H PO SCH (10:57)
[2020-06-22] MEDS ORDERED: IPRATROPIUM BROMIDE NS PRN (12:10)
[2020-06-22] MEDS ORDERED: Fluticasone Propionate Nasal 50 MCG/SPRAY BOTTLE NS PRN (12:10)
[2020-06-22] MEDS: lisinopriL 10 MG TABLET PO SCH (13:22)
[2020-06-22] MEDS: cefTRIAXone 1,000 MG in Water for inj. (sterile) 10 ML IVP SCH (17:21)
[2020-06-22] MEDS ORDERED: *HR* Warfarin 5 MG TABLET PO ONE (18:00)
[2020-06-22] MEDS ORDERED: Warfarin perPT PO PRN (18:00)
[2020-06-22] MEDS ORDERED: Melatonin 3 MG TABLET PO SCH (21:00)
[2020-06-22] MEDS ORDERED: Gabapentin 100 MG CAPSULE PO SCH (21:00)
[2020-06-22] MEDS: Budesonide/Formoterol 160/4.5 1 PUFF INH IH SCH (21:56)
[2020-06-23] MEDS ORDERED: Acetaminophen IV 1,000 MG/100 ML BAG IVPB ONE (00:24)
[2020-06-23 02:27] LABS: Basophils # 0.1 K/mcL (0.0-0.2); Basophils % 0.8 %; Eosinophils # 0.3 K/mcL (0.0-0.6); Eosinophils % 3.2 %; Hemoglobin 11.8 g/dL (11.5-15.4); Immature Granulocytes % 0.7 % (0-4); Lymphocytes # 1.5 K/mcL (0.6-4.6); Lymphocytes % 14.3 %; Mean Corpuscular HGB Conc 31.1 g/dL (31.6-35.5); Mean Corpuscular Hemoglobin 27.9 pg (28.0-33.3); Mean Corpuscular Volume 89.8 fL (83.0-100.0); Mean Platelet Volume 10.3 fL (9.4-12.4); Monocytes # 0.8 K/mcL (0.0-1.3); Monocytes % 7.5 %; Neutrophils # 7.9 K/mcL (1.6-8.9); Platelet Count 380 K/mcL (140-400); Red Blood Count 4.23 M/mcL (3.82-4.97); Red Cell Distribution Width 14.6 % (11.5-14.5); Segmented Neutrophils % 73.5 %; White Blood Count 10.8 K/mcL (4.3-11.1)
[2020-06-23 02:33] LABS: Prothrombin Time 22.5 Seconds (9.4-12.1)
[2020-06-23 02:48] LABS: BUN/Creatinine Ratio 17 (6-26); Blood Urea Nitrogen 12 mg/dL (8-23); Calcium 8.9 mg/dL (8.6-10.3); Carbon Dioxide 22 mEq/L (23-29); Chloride 107 mEq/L (98-107); Glucose 101 mg/dL (70-105); Osmolality,Calculated 292 (280-300); Sodium 141 mEq/L (136-145); eGFR For African Americans > 60 (> 60); eGFR For Non-African Americans > 60 (> 60)
[2020-06-23] MEDS ORDERED: Potassium Chloride 40 MEQ, Lidocaine 1% 2 ML in 0.9 % Sodium Chloride 500 ML IVPB ONE (04:28)
[2020-06-23] MEDS ORDERED: Potassium Chloride Elixir 20 MEQ/15 ML UDC PO ONE (04:28)
[2020-06-23] MEDS: Levothyroxine 25 MCG TABLET PO SCH (05:36)
[2020-06-23] MEDS ORDERED: Loratadine 10 MG TABLET PO SCH (09:00)
[2020-06-23] MEDS ORDERED: Furosemide 20 MG TABLET PO SCH (09:00)
[2020-06-23] MEDS: lisinopriL 10 MG TABLET PO SCH (09:43)
[2020-06-23] MEDS: DilTIAZem CD (24hr) 120 MG CAP.ER.24H PO SCH (09:43)
[2020-06-23] MEDS: Budesonide/Formoterol 160/4.5 1 PUFF INH IH SCH (10:50)
[2020-06-23 12:02] VITALS: BP 149/74
[2020-06-23] MEDS ORDERED: *HR* Warfarin 5 MG TABLET PO ONE (18:00)
== END 2020-06-23 16:00 | disposition home or self-care (01) | DRG 388 ==
LOC: 3NENU 19:32 → EMEROOARM 19:32 → SUATTDRO 23:27 → 3NENU 06-20 00:16
PROVIDERS: ADMIT Student in an Organized Health Care Education/Training Program; ATTEND Internal Medicine

== ENCOUNTER 2020-11-07 09:04 | Observation (INO) ==
[2020-11-07] MEDS ORDERED: Ondansetron 4 MG/2 ML VIAL IVP ONE ×2 (09:12→10:44)
[2020-11-07] MEDS: 0.9 % Sodium Chloride 1,000 ML IV ONE ×2 (09:24→15:49)
[2020-11-07 09:35] LABS: Basophils # 0.1 K/mcL (0.0-0.2); Basophils % 0.4 %; Eosinophils # 0.1 K/mcL (0.0-0.6); Eosinophils % 0.5 %; Hematocrit 44.7 % (35.3-44.9); Hemoglobin 14.3 g/dL (11.5-15.4); Immature Granulocytes % 0.5 % (0-4); Lymphocytes % 4.4 %; Mean Corpuscular Hemoglobin 28.1 pg (28.0-33.3); Mean Corpuscular Volume 87.8 fL (83.0-100.0); Mean Platelet Volume 10.1 fL (9.4-12.4); Monocytes # 1.2 K/mcL (0.0-1.3); Monocytes % 5.5 %; Neutrophils # 19.6 K/mcL (1.6-8.9); Platelet Count 505 K/mcL (140-400); Red Blood Count 5.09 M/mcL (3.82-4.97); Red Cell Distribution Width 15.4 % (11.5-14.5); Segmented Neutrophils % 88.7 %; White Blood Count 22.1 K/mcL (4.3-11.1)
[2020-11-07 09:53] LABS: Albumin 4.4 g/dL (3.5-5.7); Albumin/Globulin Ratio 1.2 (1.1-2.2); Bilirubin,Total 0.6 mg/dL (0.3-1.0); Calcium 10.4 mg/dL (8.6-10.3); Globulin 3.7 g/dL (2.4-3.5); Potassium 4.4 mEq/L (3.5-5.1); Total Protein 8.1 g/dL (6.4-8.9)
[2020-11-07] MEDS ORDERED: Isovue-370 500 ML BOTTLE IVP ONE (10:44)
[2020-11-07 10:54] LABS: Bilirubin,Urine Negative (Negative); Blood,Urine Negative (Negative); Clarity,Urine Clear (Clear); Color,Urine Yellow (Yellow); Glucose,Urine (UA) Normal (Normal); Ketones,Urine Negative (Negative); Leukocyte Esterase,Urine Negative (Negative); Nitrite,Urine Negative (Negative); Protein,Urine Trace mg/dL (Neg-Trace); Urobilinogen,Urine Normal (Normal)
[2020-11-07] MEDS ORDERED: *HR* Promethazine 25 MG/ML VIAL IM ONE (12:34)
[2020-11-07] MEDS ORDERED: Ondansetron 4 MG/2 ML VIAL IVP PRN (12:35)
[2020-11-07] MEDS ORDERED: Naloxone 0.4 MG/ML INJ IVP PRN (12:35)
[2020-11-07] MEDS ORDERED: *HR* Promethazine 25 MG/ML VIAL IM PRN (12:35)
[2020-11-07 13:08] LABS: INR 2.2; Prothrombin Time 25.1 Seconds (9.4-12.1)
[2020-11-07] MEDS ORDERED: tiZANidine 4 MG TABLET PO PRN (14:38)
[2020-11-07] MEDS: Piperacillin/Tazobactam 3.375 GM in 0.9 % Sodium Chloride Mini Bag 100 ML IVPB SCH (15:43)
[2020-11-07] MEDS: 0.9 % Sodium Chloride 1,000 ML IVC SCH ×3 (16:05→18:01)
[2020-11-07] MEDS ORDERED: Warfarin perPT PO PRN (18:00)
[2020-11-07] MEDS ORDERED: *HR* Warfarin 7.5 MG TABLET PO ONE (18:00)
[2020-11-07] MEDS: BuPROPion XL (24 HR) 150 MG TABLET PO SCH (21:05)
[2020-11-07] MEDS ORDERED: Acetaminophen IV 1,000 MG/100 ML BAG IVPB ONE (21:53)
[2020-11-07] MEDS: Budesonide/Formoterol 80/4.5 1 PUFF INH IH SCH (22:30)
[2020-11-08] MEDS: Piperacillin/Tazobactam 3.375 GM in 0.9 % Sodium Chloride Mini Bag 100 ML IVPB SCH ×4 (05:20→20:47)
[2020-11-08] MEDS: Levothyroxine 25 MCG TABLET PO SCH (06:14)
[2020-11-08] MEDS: Budesonide/Formoterol 80/4.5 1 PUFF INH IH SCH ×2 (07:38→19:54)
[2020-11-08] MEDS ORDERED: cefTRIAXone 1,000 MG in Water for inj. (sterile) 10 ML IVP SCH (09:00)
[2020-11-08] MEDS: 0.9 % Sodium Chloride 1,000 ML IVC SCH (09:23)
[2020-11-08] MEDS: DilTIAZem CD (24hr) 120 MG CAP.ER.24H PO SCH (09:24)
[2020-11-08] MEDS: Tolterodine LA (24 HR) 4 MG CAP.ER.24H PO SCH (09:25)
[2020-11-08] MEDS: BuPROPion XL (24 HR) 150 MG TABLET PO SCH ×2 (09:25→20:47)
[2020-11-08 09:30] LABS: Basophils % 0.4 %; Eosinophils # 0.4 K/mcL (0.0-0.6); Hematocrit 32.4 % (35.3-44.9); Immature Granulocytes % 0.4 % (0-4); Lymphocytes # 1.7 K/mcL (0.6-4.6); Lymphocytes % 18.7 %; Mean Corpuscular HGB Conc 31.2 g/dL (31.6-35.5); Mean Corpuscular Hemoglobin 28.5 pg (28.0-33.3); Mean Corpuscular Volume 91.5 fL (83.0-100.0); Monocytes # 0.8 K/mcL (0.0-1.3); Monocytes % 8.5 %; Neutrophils # 6.2 K/mcL (1.6-8.9); Platelet Count 292 K/mcL (140-400); Red Blood Count 3.54 M/mcL (3.82-4.97); Red Cell Distribution Width 15.8 % (11.5-14.5)
[2020-11-08 09:31] LABS: Hemoglobin 10.1 g/dL (11.5-15.4); White Blood Count 9.1 K/mcL (4.3-11.1)
[2020-11-08 09:45] LABS: INR 2.5; Prothrombin Time 28.3 Seconds (9.4-12.1)
[2020-11-08 09:50] LABS: BUN/Creatinine Ratio 24 (6-26); Blood Urea Nitrogen 20 mg/dL (8-23); Calcium 8.1 mg/dL (8.6-10.3); Carbon Dioxide 21 mEq/L (23-29); Chloride 114 mEq/L (98-107); Glucose 99 mg/dL (70-105); Magnesium 1.8 mg/dL (1.6-2.6); Osmolality,Calculated 297 (280-300); Potassium 3.9 mEq/L (3.5-5.1); Sodium 142 mEq/L (136-145); eGFR For African Americans > 60 (> 60); eGFR For Non-African Americans > 60 (> 60)
[2020-11-08] MEDS ORDERED: *HR* Warfarin 4 MG TABLET PO ONE (18:32)
[2020-11-09] MEDS: 0.9 % Sodium Chloride 1,000 ML IVC SCH ×3 (03:13→20:26)
[2020-11-09] MEDS: Piperacillin/Tazobactam 3.375 GM in 0.9 % Sodium Chloride Mini Bag 100 ML IVPB SCH ×3 (05:25→20:21)
[2020-11-09] MEDS: Levothyroxine 25 MCG TABLET PO SCH (05:25)
[2020-11-09 07:36] LABS: Basophils # 0.1 K/mcL (0.0-0.2); Basophils % 0.7 %; Eosinophils # 0.4 K/mcL (0.0-0.6); Eosinophils % 5.1 %; Hematocrit 30.8 % (35.3-44.9); Hemoglobin 9.5 g/dL (11.5-15.4); Immature Granulocytes % 0.7 % (0-4); Lymphocytes # 1.6 K/mcL (0.6-4.6); Mean Corpuscular HGB Conc 30.8 g/dL (31.6-35.5); Mean Corpuscular Hemoglobin 28.5 pg (28.0-33.3); Mean Corpuscular Volume 92.5 fL (83.0-100.0); Mean Platelet Volume 10.2 fL (9.4-12.4); Monocytes # 0.6 K/mcL (0.0-1.3); Monocytes % 8.1 %; Platelet Count 271 K/mcL (140-400); Red Blood Count 3.33 M/mcL (3.82-4.97); Red Cell Distribution Width 15.5 % (11.5-14.5); Segmented Neutrophils % 64.4 %; White Blood Count 7.7 K/mcL (4.3-11.1)
[2020-11-09 08:00] LABS: BUN/Creatinine Ratio 19 (6-26); Blood Urea Nitrogen 14 mg/dL (8-23); Calcium 8.3 mg/dL (8.6-10.3); Carbon Dioxide 21 mEq/L (23-29); Chloride 113 mEq/L (98-107); Glucose 68 mg/dL (70-105); Magnesium 1.6 mg/dL (1.6-2.6); Osmolality,Calculated 293 (280-300); Potassium 3.8 mEq/L (3.5-5.1); Sodium 142 mEq/L (136-145); eGFR For African Americans > 60 (> 60); eGFR For Non-African Americans > 60 (> 60)
[2020-11-09 08:04] LABS: INR 2.9; Prothrombin Time 32.5 Seconds (9.4-12.1)
[2020-11-09] MEDS: Tolterodine LA (24 HR) 4 MG CAP.ER.24H PO SCH (09:50)
[2020-11-09] MEDS: DilTIAZem CD (24hr) 120 MG CAP.ER.24H PO SCH (09:51)
[2020-11-09] MEDS: BuPROPion XL (24 HR) 150 MG TABLET PO SCH ×2 (09:51→20:21)
[2020-11-09] MEDS: Budesonide/Formoterol 80/4.5 1 PUFF INH IH SCH ×2 (11:27→20:12)
[2020-11-10] MEDS ORDERED: Melatonin 3 MG TABLET PO ONE ×2 (00:24→03:49)
[2020-11-10 04:59] LABS: Basophils # 0.1 K/mcL (0.0-0.2); Basophils % 0.6 %; Eosinophils # 0.4 K/mcL (0.0-0.6); Eosinophils % 4.8 %; Hematocrit 31.5 % (35.3-44.9); Hemoglobin 9.6 g/dL (11.5-15.4); Immature Granulocytes % 0.4 % (0-4); Lymphocytes # 1.5 K/mcL (0.6-4.6); Lymphocytes % 16.7 %; Mean Corpuscular HGB Conc 30.5 g/dL (31.6-35.5); Mean Corpuscular Hemoglobin 27.7 pg (28.0-33.3); Mean Corpuscular Volume 90.8 fL (83.0-100.0); Monocytes # 0.7 K/mcL (0.0-1.3); Monocytes % 7.8 %; Neutrophils # 6.2 K/mcL (1.6-8.9); Platelet Count 275 K/mcL (140-400); Red Blood Count 3.47 M/mcL (3.82-4.97); Red Cell Distribution Width 15.2 % (11.5-14.5); Segmented Neutrophils % 69.7 %; White Blood Count 8.9 K/mcL (4.3-11.1)
[2020-11-10 05:11] LABS: INR 2.5; Prothrombin Time 28.4 Seconds (9.4-12.1)
[2020-11-10 05:17] LABS: BUN/Creatinine Ratio 13 (6-26); Blood Urea Nitrogen 9 mg/dL (8-23); Calcium 8.4 mg/dL (8.6-10.3); Carbon Dioxide 22 mEq/L (23-29); Chloride 112 mEq/L (98-107); Glucose 98 mg/dL (70-105); Osmolality,Calculated 295 (280-300); Potassium 3.3 mEq/L (3.5-5.1); Sodium 143 mEq/L (136-145); eGFR For African Americans > 60 (> 60); eGFR For Non-African Americans > 60 (> 60)
[2020-11-10] MEDS: Levothyroxine 25 MCG TABLET PO SCH (05:46)
[2020-11-10] MEDS: Piperacillin/Tazobactam 3.375 GM in 0.9 % Sodium Chloride Mini Bag 100 ML IVPB SCH ×2 (05:46→12:36)
[2020-11-10] MEDS: Budesonide/Formoterol 80/4.5 1 PUFF INH IH SCH (07:32)
[2020-11-10] MEDS ORDERED: Potassium Chloride Elixir 20 MEQ/15 ML UDC PO ONE (08:30)
[2020-11-10] MEDS: BuPROPion XL (24 HR) 150 MG TABLET PO SCH (09:12)
[2020-11-10] MEDS: Tolterodine LA (24 HR) 4 MG CAP.ER.24H PO SCH (09:12)
[2020-11-10] MEDS: DilTIAZem CD (24hr) 120 MG CAP.ER.24H PO SCH (09:12)
[2020-11-10 11:03] VITALS: BP 150/75
[2020-11-10] MEDS ORDERED: *HR* Warfarin 5 MG TABLET PO ONE (18:00)
== END 2020-11-10 16:54 | disposition home health service (06) ==
LOC: EMEROOARM 09:04 → 3ANU 09:04 → SUATTDRO 13:05 → 3ANU 14:00
PROVIDERS: ADMIT Internal Medicine; ATTEND Family Medicine

== ENCOUNTER 2020-12-14 08:17 | Observation (INO) ==
[2020-12-14] MEDS ORDERED: Ondansetron 4 MG/2 ML VIAL IVP ONE (08:25)
[2020-12-14 08:53] LABS: Basophils # 0.1 K/mcL (0.0-0.2); Basophils % 0.4 %; Eosinophils # 0.2 K/mcL (0.0-0.6); Eosinophils % 1.4 %; Hematocrit 37.5 % (35.3-44.9); Hemoglobin 11.4 g/dL (11.5-15.4); Immature Granulocytes % 0.5 % (0-4); Lymphocytes # 1.1 K/mcL (0.6-4.6); Lymphocytes % 6.3 %; Mean Corpuscular HGB Conc 30.4 g/dL (31.6-35.5); Mean Corpuscular Hemoglobin 26.7 pg (28.0-33.3); Mean Corpuscular Volume 87.8 fL (83.0-100.0); Mean Platelet Volume 9.6 fL (9.4-12.4); Monocytes # 1.2 K/mcL (0.0-1.3); Platelet Count 428 K/mcL (140-400); Red Blood Count 4.27 M/mcL (3.82-4.97); Red Cell Distribution Width 14.3 % (11.5-14.5); Segmented Neutrophils % 84.4 %; White Blood Count 16.6 K/mcL (4.3-11.1)
[2020-12-14 09:15] LABS: Alanine Aminotransferase 22 Units/L (7-52); Albumin 3.6 g/dL (3.5-5.7); Albumin/Globulin Ratio 1.1 (1.1-2.2); Alkaline Phosphatase 124 Units/L (34-104); Aspartate Amino Transferase 26 Units/L (13-39); BUN/Creatinine Ratio 17 (6-26); Bilirubin,Total 0.4 mg/dL (0.3-1.0); Blood Urea Nitrogen 18 mg/dL (8-23); Calcium 9.6 mg/dL (8.6-10.3); Carbon Dioxide 24 mEq/L (23-29); Chloride 104 mEq/L (98-107); Globulin 3.2 g/dL (2.4-3.5); Glucose 145 mg/dL (70-105); Lipase 11 Units/L (11-82); Osmolality,Calculated 292 (280-300); Sodium 139 mEq/L (136-145); Total Protein 6.8 g/dL (6.4-8.9); eGFR For African Americans > 60 (> 60); eGFR For Non-African Americans 51 (> 60)
[2020-12-14] MEDS ORDERED: Isovue-370 500 ML BOTTLE IVP ONE (09:42)
[2020-12-14 11:18] LABS: Bilirubin,Urine Negative (Negative); Blood,Urine Trace (Negative); Clarity,Urine Clear (Clear); Color,Urine Light-Yellow (Yellow); Glucose,Urine (UA) Normal (Normal); Hyaline Casts,Urine Few per lpf (None Seen); Ketones,Urine Negative (Negative); Leukocyte Esterase,Urine Negative (Negative); Nitrite,Urine Negative (Negative); PH,Urine 5.5 pH Units (5.0-8.0); Protein,Urine Negative (Neg-Trace); RBC,Urine 0-3 per hpf (0-3); Specific Gravity,Urine > 1.030 (1.010-1.025); Urobilinogen,Urine Normal (Normal); WBC,Urine 0-3 per hpf (0-3)
[2020-12-14] MEDS ORDERED: Naloxone 0.4 MG/ML INJ IVP PRN (12:22)
[2020-12-14] MEDS ORDERED: Ondansetron 4 MG/2 ML VIAL IVP PRN (12:22)
[2020-12-14] MEDS ORDERED: Metoclopramide 10 MG/2 ML VIAL IVP PRN (12:23)
[2020-12-14] MEDS ORDERED: *HR* Metoprolol 5 MG/5 ML VIAL IVP PRN (13:02)
[2020-12-14] MEDS: 0.9 % Sodium Chloride 1,000 ML IVC SCH (13:30)
[2020-12-14] MEDS: Pantoprazole 40 MG VIAL IVP SCH (13:30)
[2020-12-14 14:38] LABS: INR 3.4; Prothrombin Time 37.5 Seconds (9.4-12.1)
[2020-12-15] MEDS: 0.9 % Sodium Chloride 1,000 ML IVC SCH (00:13)
[2020-12-15 03:57] LABS: Basophils % 0.3 %; Eosinophils # 0.3 K/mcL (0.0-0.6); Eosinophils % 3.3 %; Hematocrit 32.4 % (35.3-44.9); Hemoglobin 10.1 g/dL (11.5-15.4); Immature Granulocytes % 0.7 % (0-4); Lymphocytes # 1.6 K/mcL (0.6-4.6); Mean Corpuscular HGB Conc 31.2 g/dL (31.6-35.5); Mean Corpuscular Volume 89.8 fL (83.0-100.0); Mean Platelet Volume 9.8 fL (9.4-12.4); Monocytes # 0.9 K/mcL (0.0-1.3); Monocytes % 9.7 %; Neutrophils # 6.1 K/mcL (1.6-8.9); Platelet Count 336 K/mcL (140-400); Red Blood Count 3.61 M/mcL (3.82-4.97); Red Cell Distribution Width 14.5 % (11.5-14.5); White Blood Count 8.9 K/mcL (4.3-11.1)
[2020-12-15 04:04] LABS: INR 2.6; Prothrombin Time 29.7 Seconds (9.4-12.1)
[2020-12-15 04:16] LABS: BUN/Creatinine Ratio 19 (6-26); Blood Urea Nitrogen 18 mg/dL (8-23); Calcium 8.5 mg/dL (8.6-10.3); Carbon Dioxide 22 mEq/L (23-29); Chloride 111 mEq/L (98-107); Glucose 92 mg/dL (70-105); Magnesium 1.8 mg/dL (1.6-2.6); Osmolality,Calculated 300 (280-300); Phosphorous 3.4 mg/dL (2.7-4.5); Potassium 3.8 mEq/L (3.5-5.1); Sodium 144 mEq/L (136-145); eGFR For African Americans > 60 (> 60); eGFR For Non-African Americans 58 (> 60)
[2020-12-15] MEDS ORDERED: Lactobacillus 1 EACH CAP.SPRINK PO SCH (09:00)
[2020-12-15] MEDS ORDERED: Loratadine 10 MG TABLET PO SCH (09:00)
[2020-12-15] MEDS ORDERED: DilTIAZem CD (24hr) 120 MG CAP.ER.24H PO SCH (09:00)
[2020-12-15] MEDS: BuPROPion XL (24 HR) 150 MG TABLET PO SCH ×2 (09:12→20:14)
[2020-12-15] MEDS: Pantoprazole 40 MG VIAL IVP SCH (09:13)
[2020-12-15 13:10] LABS: Adenovirus F 40/41 PCR Not detected (Not detect); Astrovirus PCR Not detected (Not detect); C.difficile Toxin A/B Gene PCR Not detected (Not detect); Campylobacter by PCR Not detected (Not detect); Cryptosporidium by PCR Not detected (Not detect); Cyclospora cayetanensis PCR Not detected (Not detect); E. coli O157 by PCR Not detected (Not detect); Entamoeba histolytica PCR Not detected (Not detect); Enteroaggregative E.coli(EAEC) Not detected (Not detect); Enteropathogenic E.coli(EPEC) DETECTED (Not detect); Enterotoxigenic E.coli (ETEC) Not detected (Not detect); Giardia lamblia PCR Not detected (Not detect); Norovirus GI/GII PCR Not detected (Not detect); Plesiomonas shigelloides PCR Not detected (Not detect); Rotavirus A PCR Not detected (Not detect); Salmonella PCR Not detected (Not detect); Sapovirus PCR Not detected (Not detect); Shig/EnteroinvasiveE coli EIEC Not detected (Not detect); Shigalike tox-prod E coli STEC Not detected (Not detect); Vibrio PCR Not detected (Not detect); Vibrio cholerae PCR Not detected (Not detect); Yersinia enterocolitica PCR Not detected (Not detect)
[2020-12-15] MEDS ORDERED: *HR* Warfarin 7.5 MG TABLET PO ONE (18:00)
[2020-12-15] MEDS ORDERED: Warfarin perPT PO PRN (18:00)
[2020-12-15] MEDS ORDERED: Pregabalin 50 MG CAPSULE PO SCH (21:00)
[2020-12-15] MEDS ORDERED: Melatonin 3 MG TABLET PO SCH (21:00)
[2020-12-16 01:15] LABS: Hematocrit 28.9 % (35.3-44.9); Hemoglobin 8.9 g/dL (11.5-15.4); Mean Corpuscular HGB Conc 30.8 g/dL (31.6-35.5); Mean Corpuscular Hemoglobin 27.9 pg (28.0-33.3); Mean Corpuscular Volume 90.6 fL (83.0-100.0); Mean Platelet Volume 10.2 fL (9.4-12.4); Platelet Count 257 K/mcL (140-400); Red Blood Count 3.19 M/mcL (3.82-4.97); Red Cell Distribution Width 14.1 % (11.5-14.5); White Blood Count 8.2 K/mcL (4.3-11.1)
[2020-12-16 01:26] LABS: INR 2.2; Prothrombin Time 24.9 Seconds (9.4-12.1)
[2020-12-16 01:34] LABS: BUN/Creatinine Ratio 19 (6-26); Blood Urea Nitrogen 13 mg/dL (8-23); Calcium 8.4 mg/dL (8.6-10.3); Carbon Dioxide 22 mEq/L (23-29); Chloride 108 mEq/L (98-107); Glucose 85 mg/dL (70-105); Osmolality,Calculated 295 (280-300); Potassium 3.5 mEq/L (3.5-5.1); Sodium 143 mEq/L (136-145); eGFR For African Americans > 60 (> 60); eGFR For Non-African Americans > 60 (> 60)
[2020-12-16] MEDS ORDERED: Levothyroxine 25 MCG TABLET PO SCH (06:30)
[2020-12-16 07:52] VITALS: BP 157/65
== END 2020-12-16 11:10 | disposition home health service (06) ==
LOC: EMEROOARM 08:17 → 3ANU 08:17 → SUATTDRO 11:53 → 3ANU 13:04
PROVIDERS: ADMIT Internal Medicine; ATTEND Internal Medicine

== ENCOUNTER 2020-12-22 12:26 | Inpatient (IN) ==
[2020-12-22] MEDS ORDERED: methylPREDNISolone 125 MG/2 ML VIAL IVP ONE (12:33)
[2020-12-22] MEDS ORDERED: Ipratropium/Albuterol Neb 3 ML IH ONE (12:33)
[2020-12-22 13:05] LABS: Basophils # 0.1 K/mcL (0.0-0.2); Basophils % 0.6 %; Eosinophils % 0.9 %; Hematocrit 31.8 % (35.3-44.9); Hemoglobin 9.9 g/dL (11.5-15.4); Immature Granulocytes % 1.1 % (0-4); Lymphocytes # 1.7 K/mcL (0.6-4.6); Lymphocytes % 10.6 %; Mean Corpuscular HGB Conc 31.1 g/dL (31.6-35.5); Mean Corpuscular Hemoglobin 26.8 pg (28.0-33.3); Mean Corpuscular Volume 86.2 fL (83.0-100.0); Mean Platelet Volume 9.8 fL (9.4-12.4); Monocytes # 1.2 K/mcL (0.0-1.3); Monocytes % 7.3 %; Neutrophils # 12.6 K/mcL (1.6-8.9); Platelet Count 360 K/mcL (140-400); Red Blood Count 3.69 M/mcL (3.82-4.97); Red Cell Distribution Width 14.4 % (11.5-14.5); Segmented Neutrophils % 79.5 %
[2020-12-22 13:07] LABS: Eosinophils # 0.1 K/mcL (0.0-0.6); White Blood Count 15.8 K/mcL (4.3-11.1)
[2020-12-22 13:27] LABS: BUN/Creatinine Ratio 13 (6-26); Blood Urea Nitrogen 11 mg/dL (8-23); Calcium 8.4 mg/dL (8.6-10.3); Carbon Dioxide 23 mEq/L (23-29); Chloride 103 mEq/L (98-107); Glucose 143 mg/dL (70-105); Osmolality,Calculated 288 (280-300); Potassium 3.7 mEq/L (3.5-5.1); Sodium 138 mEq/L (136-145); eGFR For African Americans > 60 (> 60); eGFR For Non-African Americans > 60 (> 60)
[2020-12-22 13:49] LABS: Troponin I 0.28 ng/mL (< 0.04)
[2020-12-22] MEDS ORDERED: Aspirin 325 MG TABLET PO ONE (13:49)
[2020-12-22 14:04] LABS: INR 1.9; Prothrombin Time 21.8 Seconds (9.4-12.1)
[2020-12-22] MEDS ORDERED: Vancomycin 1,250 MG/262.5 ML IV.SOLN IVPB ONE (14:22)
[2020-12-22] MEDS ORDERED: Piperacillin/Tazobactam 3.375 GM in 0.9 % Sodium Chloride Mini Bag 100 ML IVPB ONE (14:22)
[2020-12-22] MEDS ORDERED: Furosemide 40 MG/4 ML VIAL IVP ONE (14:23)
[2020-12-22] MEDS ORDERED: Acetaminophen 325 MG TABLET PO PRN (15:17)
[2020-12-22] MEDS ORDERED: Ondansetron 4 MG/2 ML VIAL IVP PRN (15:17)
[2020-12-22 16:11] LABS: Adenovirus Not Detected (Not Detect); Coronavirus 229E Not Detected (Not Detect); Coronavirus HKU1 Not Detected (Not Detect); Coronavirus NL63 Not Detected (Not Detect); Coronavirus OC43 Not Detected (Not Detect); Human Metapneumovirus Not Detected (Not Detect); Human Rhinovirus/Enterovirus Not Detected (Not Detect); Influenza A Subtype 2009 H1 Not Detected (Not Detect); Influenza B Not Detected (Not Detect); Parainfluenza Virus 1 Not Detected (Not Detect); Parainfluenza Virus 2 Not Detected (Not Detect); SARS-CoV-2 Not Detected (Not Detect)
[2020-12-22 16:12] LABS: Bordetella Pertussis Not Detected (Not Detect); Chlamydophila pneumoniae Not Detected (Not Detect); Mycoplasma pneumoniae Not Detected (Not Detect); Parainfluenza Virus 3 DETECTED (Not Detect); Parainfluenza Virus 4 Not Detected (Not Detect); Respiratory Syncytial Virus Not Detected (Not Detect)
[2020-12-22] MEDS ORDERED: 0.9 % Sodium Chloride 250 ML ONE (17:22)
[2020-12-22] MEDS: MethylPREDNISolone 40 MG/ML VIAL IVP SCH (17:35)
[2020-12-22] MEDS: Azithromycin 500 MG in 0.9 % Sodium Chloride 250 ML IVPB SCH (17:37)
[2020-12-22] MEDS ORDERED: Warfarin perPT PO PRN (18:00)
[2020-12-22] MEDS ORDERED: *HR* Warfarin 7.5 MG TABLET PO ONE (18:00)
[2020-12-22] MEDS: Ipratropium/Albuterol Neb 3 ML IH SCH ×3 (19:01→23:36)
[2020-12-22] MEDS ORDERED: Isovue-370 500 ML BOTTLE IVP ONE (21:39)
[2020-12-22 23:36] LABS: Bilirubin,Urine Negative (Negative); Blood,Urine Negative (Negative); Clarity,Urine Clear (Clear); Color,Urine Colorless (Yellow); Glucose,Urine (UA) 30 mg/dL (Normal); Ketones,Urine Negative (Negative); Leukocyte Esterase,Urine Negative (Negative); Nitrite,Urine Negative (Negative); PH,Urine 5.5 pH Units (5.0-8.0); Protein,Urine Negative (Neg-Trace); Specific Gravity,Urine 1.006 (1.010-1.025); Urobilinogen,Urine Normal (Normal); WBC,Urine 0-3 per hpf (0-3)
[2020-12-23] MEDS: Cefepime HCl 2,000 MG in Water for inj. (sterile) 20 ML IVP SCH ×3 (00:48→15:24)
[2020-12-23 01:22] LABS: Hematocrit 30.8 % (35.3-44.9); Hemoglobin 9.6 g/dL (11.5-15.4); Mean Corpuscular HGB Conc 31.2 g/dL (31.6-35.5); Mean Corpuscular Volume 86.5 fL (83.0-100.0); Mean Platelet Volume 9.6 fL (9.4-12.4); Platelet Count 338 K/mcL (140-400); Red Blood Count 3.56 M/mcL (3.82-4.97); Red Cell Distribution Width 14.3 % (11.5-14.5); White Blood Count 11.5 K/mcL (4.3-11.1)
[2020-12-23 01:31] LABS: Prothrombin Time 23.1 Seconds (9.4-12.1)
[2020-12-23 01:56] LABS: BUN/Creatinine Ratio 17 (6-26); Blood Urea Nitrogen 14 mg/dL (8-23); Calcium 8.4 mg/dL (8.6-10.3); Carbon Dioxide 22 mEq/L (23-29); Chloride 106 mEq/L (98-107); Glucose 225 mg/dL (70-105); Osmolality,Calculated 302 (280-300); Potassium 3.4 mEq/L (3.5-5.1); Sodium 142 mEq/L (136-145); Troponin I 0.21 ng/mL (< 0.04); eGFR For African Americans > 60 (> 60); eGFR For Non-African Americans > 60 (> 60)
[2020-12-23] MEDS: Ipratropium/Albuterol Neb 3 ML IH SCH ×6 (04:07→23:14)
[2020-12-23] MEDS: MethylPREDNISolone 40 MG/ML VIAL IVP SCH ×2 (05:25→18:04)
[2020-12-23] MEDS: Aspirin 81 MG TAB.CHEW PO SCH (08:51)
[2020-12-23] MEDS ORDERED: GuaiFENesin Liq 200 MG/10 ML UDC PO PRN (09:25)
[2020-12-23] MEDS ORDERED: Perflutren Lipid Microsphere 1.3 ML in 0.9 % Sodium Chloride 8.7 ML IVP PRN ×2 (11:01→20:09)
[2020-12-23] MEDS ORDERED: *HR* Midazolam HCl 5 MG/5 ML VIAL IVP ONE (13:41)
[2020-12-23] MEDS ORDERED: *HR* Etomidate 20 MG/10 ML AMPUL IVP ONE (13:41)
[2020-12-23] MEDS ORDERED: *HR* Rocuronium Bromide 50 MG/5 ML VIAL IVP ONE (13:41)
[2020-12-23] MEDS ORDERED: Vancomycin 1,250 MG/262.5 ML IV.SOLN IVPB SCH (15:00)
[2020-12-23] MEDS: Azithromycin 500 MG in 0.9 % Sodium Chloride 250 ML IVPB SCH (15:24)
[2020-12-23] MEDS ORDERED: *HR* Warfarin 7.5 MG TABLET PO ONE (18:00)
[2020-12-23] MEDS ORDERED: hydrOXYzine pamoate 25 MG CAPSULE PO PRN (18:07)
[2020-12-23] MEDS ORDERED: tiZANidine 4 MG TABLET PO PRN (18:07)
[2020-12-23] MEDS ORDERED: *HR* Metoprolol 5 MG/5 ML VIAL IVP ONE ×4 (18:38→20:20)
[2020-12-23] MEDS ORDERED: Furosemide 40 MG/4 ML VIAL ONE ×2 (18:39→18:40)
[2020-12-23] MEDS ORDERED: Furosemide 40 MG/4 ML VIAL IVP ONE ×2 (18:39→18:44)
[2020-12-23] MEDS ORDERED: *HR* LORazepam 2 MG/ML VIAL IVP ONE (18:41)
[2020-12-23] MEDS ORDERED: *HR* LORazepam 2 MG/ML VIAL ONE (18:42)
[2020-12-23] MEDS: lisinopriL 20 MG TABLET PO SCH (18:51)
[2020-12-23] MEDS: DilTIAZem CD (24hr) 120 MG CAP.ER.24H PO SCH (18:51)
[2020-12-23 19:03] LABS: ABG Base Excess -21 mEq/L (-2 to 3); ABG HCO3 13 mEq/L (21-27); ABG Oxygen Saturation 90 % (95-98); ABG PCO2 70 mmHg (35-45); ABG PH 6.87 pH Units (7.32-7.45); ABG PO2 103 mmHg (85-104); ABG TCO2 15 mEq/L (20-26)
[2020-12-23] MEDS ORDERED: *HR* Heparin 5,000 UNIT/ML VIAL IVP ONE (19:04)
[2020-12-23] MEDS ORDERED: *HR* Heparin 5,000 UNIT/ML VIAL IVP PRN ×2 (19:04)
[2020-12-23] MEDS ORDERED: Heparin 25,000UNIT/250ML 1/2NS 25,000 UNIT/250 ML IV.SOLN IVC SCH (19:15)
[2020-12-23] MEDS ORDERED: Sodium Bicarbonate 50 MEQ/50 ML VIAL IVP ONE (19:15)
[2020-12-23] MEDS ORDERED: Artificial Tears SOLN 15 ML BOTTLE BOTH EYES PRN (20:22)
[2020-12-23] MEDS: Sodium Bicarbonate 150 MEQ in D5% in Water 1,000 ML IVC SCH (20:28)
[2020-12-23] MEDS: FentaNYL (PF) 1,000 MCG/100 ML IV.SOLN IVC SCH (20:30)
[2020-12-23] MEDS: Pantoprazole 40 MG VIAL IVP SCH (21:17)
[2020-12-23] MEDS: Melatonin 3 MG TABLET PO SCH (21:18)
[2020-12-23] MEDS: Chlorhexidine Rinse 15 ML MOUTHWASH MM SCH (21:18)
[2020-12-23] MEDS: Pregabalin 50 MG CAPSULE PO SCH (21:18)
[2020-12-23] MEDS: BuPROPion XL (24 HR) 150 MG TABLET PO SCH (21:18)
[2020-12-23 22:31] LABS: ABG Base Excess 1 mEq/L (-2 to 3); ABG HCO3 31 mEq/L (21-27); ABG Oxygen Saturation 92 % (95-98); ABG PCO2 86 mmHg (35-45); ABG PH 7.17 pH Units (7.32-7.45); ABG PO2 83 mmHg (85-104); ABG TCO2 34 mEq/L (20-26); Blood Gas VT 400 cc
[2020-12-23 22:33] LABS: Basophils # 0.1 K/mcL (0.0-0.2); Basophils % 0.2 %; Hematocrit 33.5 % (35.3-44.9); Hemoglobin 10.3 g/dL (11.5-15.4); Immature Granulocytes % 3.2 % (0-4); Lymphocytes # 0.7 K/mcL (0.6-4.6); Lymphocytes % 1.5 %; Mean Corpuscular HGB Conc 30.7 g/dL (31.6-35.5); Mean Corpuscular Hemoglobin 27.4 pg (28.0-33.3); Mean Corpuscular Volume 89.1 fL (83.0-100.0); Mean Platelet Volume 10.1 fL (9.4-12.4); Monocytes # 2.5 K/mcL (0.0-1.3); Monocytes % 5.4 %; Platelet Count 593 K/mcL (140-400); Red Blood Count 3.76 M/mcL (3.82-4.97); Red Cell Distribution Width 14.8 % (11.5-14.5); Segmented Neutrophils % 89.7 %
[2020-12-23 22:42] LABS: Heparin anti-factor XA UFH < 0.04 IU/mL (0.30-0.70)
[2020-12-23 22:51] LABS: INR 3.2; Neutrophils # 41.9 K/mcL (1.6-8.9); Prothrombin Time 35.4 Seconds (9.4-12.1)
[2020-12-23 22:53] LABS: White Blood Count 46.7 K/mcL (4.3-11.1)
[2020-12-23 22:54] LABS: Platelet Estimate Increased (Normal)
[2020-12-23 23:00] LABS: Calcium 8.3 mg/dL (8.6-10.3); Potassium 4.9 mEq/L (3.5-5.1); Troponin I 1.09 ng/mL (< 0.04)
[2020-12-23] MEDS ORDERED: Azithromycin 500 MG in 0.9 % Sodium Chloride 250 ML IVPB SCH (23:45)
[2020-12-23] MEDS: Heparin 25,000UNIT/250ML 1/2NS 25,000 UNIT/250 ML IV.SOLN IVC SCH (23:46)
[2020-12-24] MEDS ORDERED: *HR* Heparin 5,000 UNIT/ML VIAL IVP PRN ×2
[2020-12-24] MEDS ORDERED: Piperacillin/Tazobactam 3.375 GM in 0.9 % Sodium Chloride Mini Bag 100 ML IVPB SCH
[2020-12-24 00:18] LABS: Blood Gas VT 450 cc; Mixed Venous Blood pCO2 53 mmHg (44-46); Mixed Venous Blood pH 7.33 pH Units (7.34-7.36); Mixed Venous Blood pO2 49 mmHg (35-45)
[2020-12-24] MEDS: Artificial Tears SOLN 15 ML BOTTLE BOTH EYES SCH ×7 (00:21→23:15)
[2020-12-24] MEDS: Cefepime HCl 2,000 MG in Water for inj. (sterile) 20 ML IVP SCH ×2 (00:22→17:15)
[2020-12-24] MEDS: MethylPREDNISolone 40 MG/ML VIAL IVP SCH ×4 (00:22→23:16)
[2020-12-24] MEDS: Vancomycin 1,250 MG/262.5 ML IV.SOLN IVPB SCH ×2 (00:48→23:15)
[2020-12-24 03:20] LABS: Basophils % 0.2 %; Lymphocytes % 2.2 %; Mean Platelet Volume 10.1 fL (9.4-12.4); Red Cell Distribution Width 14.8 % (11.5-14.5)
[2020-12-24 03:21] LABS: Basophils # 0.1 K/mcL (0.0-0.2); Hematocrit 30.9 % (35.3-44.9); Hemoglobin 9.5 g/dL (11.5-15.4); Immature Granulocytes % 2.1 % (0-4); Lymphocytes # 0.7 K/mcL (0.6-4.6); Mean Corpuscular HGB Conc 30.7 g/dL (31.6-35.5); Mean Corpuscular Hemoglobin 27.3 pg (28.0-33.3); Mean Corpuscular Volume 88.8 fL (83.0-100.0); Monocytes # 1.5 K/mcL (0.0-1.3); Monocytes % 4.7 %; Neutrophils # 28.2 K/mcL (1.6-8.9); Platelet Count 437 K/mcL (140-400); Red Blood Count 3.48 M/mcL (3.82-4.97); Segmented Neutrophils % 90.8 %
[2020-12-24] MEDS: Ipratropium/Albuterol Neb 3 ML IH SCH ×5 (03:21→19:50)
[2020-12-24 03:30] LABS: White Blood Count 31.1 K/mcL (4.3-11.1)
[2020-12-24 03:34] LABS: INR 3.2; Prothrombin Time 35.7 Seconds (9.4-12.1)
[2020-12-24 03:40] LABS: Calcium 8.3 mg/dL (8.6-10.3); Phosphorous 4.2 mg/dL (2.7-4.5); Potassium 4.4 mEq/L (3.5-5.1)
[2020-12-24 04:06] LABS: ABG Base Excess 2 mEq/L (-2 to 3); ABG HCO3 29 mEq/L (21-27); ABG Oxygen Saturation 96 % (95-98); ABG PCO2 56 mmHg (35-45); ABG PH 7.32 pH Units (7.32-7.45); ABG PO2 93 mmHg (85-104); ABG TCO2 30 mEq/L (20-26)
[2020-12-24 04:12] LABS: Anisocytosis 1+ (Not Present); Platelet Estimate Normal (Normal)
[2020-12-24] MEDS ORDERED: Levothyroxine 25 MCG TABLET PO SCH (06:30)
[2020-12-24] MEDS: FentaNYL (PF) 1,000 MCG/100 ML IV.SOLN IVC SCH ×3 (07:46→22:28)
[2020-12-24] MEDS: Pantoprazole 40 MG VIAL IVP SCH (08:53)
[2020-12-24] MEDS: Aspirin 81 MG TAB.CHEW PO SCH (08:56)
[2020-12-24] MEDS: DilTIAZem CD (24hr) 120 MG CAP.ER.24H PO SCH (08:56)
[2020-12-24] MEDS: lisinopriL 20 MG TABLET PO SCH (08:57)
[2020-12-24] MEDS: Chlorhexidine Rinse 15 ML MOUTHWASH MM SCH ×2 (08:57→19:56)
[2020-12-24] MEDS ORDERED: Metoprolol XL (24 HR) Succ 25 MG TAB.ER.24H PO SCH (09:00)
[2020-12-24] MEDS: Sodium Bicarbonate 150 MEQ in D5% in Water 1,000 ML IVC SCH (12:50)
[2020-12-24] MEDS: BuPROPion XL (24 HR) 150 MG TABLET PO SCH (13:33)
[2020-12-24] MEDS: Azithromycin 500 MG in 0.9 % Sodium Chloride 250 ML IVPB SCH (16:00)
[2020-12-24] MEDS: Pregabalin 50 MG CAPSULE PO SCH (19:57)
[2020-12-24] MEDS: Melatonin 3 MG TABLET PO SCH (19:57)
[2020-12-25] MEDS: Ipratropium/Albuterol Neb 3 ML IH SCH ×7 (00:08→23:20)
[2020-12-25 00:34] LABS: INR 5.8; Prothrombin Time 63.7 Seconds (9.4-12.1)
[2020-12-25] MEDS: Sodium Bicarbonate 150 MEQ in D5% in Water 1,000 ML IVC SCH ×2 (00:40→17:14)
[2020-12-25] MEDS: Heparin 25,000UNIT/250ML 1/2NS 25,000 UNIT/250 ML IV.SOLN IVC SCH (00:40)
[2020-12-25] MEDS: Artificial Tears SOLN 15 ML BOTTLE BOTH EYES SCH ×6 (03:07→23:25)
[2020-12-25 03:40] LABS: ABG Base Excess 1 mEq/L (-2 to 3); ABG HCO3 29 mEq/L (21-27); ABG Oxygen Saturation 94 % (95-98); ABG PCO2 62 mmHg (35-45); ABG PH 7.27 pH Units (7.32-7.45); ABG PO2 82 mmHg (85-104); ABG TCO2 31 mEq/L (20-26); Blood Gas Modality ASSIST CONTROL; Blood Gas VT 400 cc
[2020-12-25 03:50] LABS: Mean Platelet Volume 10.3 fL (9.4-12.4); Monocytes % 3.5 %
[2020-12-25 03:52] LABS: Basophils % 0.2 %; Hematocrit 27.9 % (35.3-44.9); Hemoglobin 8.5 g/dL (11.5-15.4); Immature Granulocytes % 1.2 % (0-4); Lymphocytes # 0.4 K/mcL (0.6-4.6); Lymphocytes % 2.4 %; Mean Corpuscular HGB Conc 30.5 g/dL (31.6-35.5); Mean Corpuscular Hemoglobin 27.6 pg (28.0-33.3); Mean Corpuscular Volume 90.6 fL (83.0-100.0); Monocytes # 0.6 K/mcL (0.0-1.3); Neutrophils # 16.7 K/mcL (1.6-8.9); Platelet Count 338 K/mcL (140-400); Red Blood Count 3.08 M/mcL (3.82-4.97); Red Cell Distribution Width 15.1 % (11.5-14.5); Segmented Neutrophils % 92.7 %
[2020-12-25 04:02] LABS: Calcium 8.5 mg/dL (8.6-10.3); Phosphorous 4.2 mg/dL (2.7-4.5); Potassium 4.2 mEq/L (3.5-5.1)
[2020-12-25 04:14] LABS: Hypochromasia Present (Not Present); Platelet Estimate Normal (Normal)
[2020-12-25] MEDS: Cefepime HCl 2,000 MG in Water for inj. (sterile) 20 ML IVP SCH ×2 (05:15→17:14)
[2020-12-25] MEDS: MethylPREDNISolone 40 MG/ML VIAL IVP SCH ×2 (08:34→17:14)
[2020-12-25] MEDS: Chlorhexidine Rinse 15 ML MOUTHWASH MM SCH ×2 (08:34→20:07)
[2020-12-25] MEDS: Aspirin 81 MG TAB.CHEW PO SCH (08:35)
[2020-12-25] MEDS: Pantoprazole 40 MG VIAL IVP SCH (08:35)
[2020-12-25 09:20] LABS: Prothrombin Time 67.8 Seconds (9.4-12.1)
[2020-12-25 09:21] LABS: INR 6.2
[2020-12-25 09:24] LABS: Bilirubin,Direct 0.1 mg/dL (0.0-0.2); Bilirubin,Indirect 0.2 mg/dL (0.0-1.0); Bilirubin,Total 0.3 mg/dL (0.3-1.0)
[2020-12-25] MEDS: FentaNYL (PF) 1,000 MCG/100 ML IV.SOLN IVC SCH ×2 (09:52→18:49)
[2020-12-25] MEDS: Docusate Oral Soln 100 MG/10 ML UDC GTUBE SCH (20:07)
[2020-12-25] MEDS: Melatonin 3 MG TABLET PO SCH (20:07)
[2020-12-25] MEDS: Pregabalin 50 MG CAPSULE PO SCH (20:10)
[2020-12-25 20:14] LABS: ABG Base Excess 0 mEq/L (-2 to 3); ABG HCO3 28 mEq/L (21-27); ABG Oxygen Saturation 95 % (95-98); ABG PCO2 62 mmHg (35-45); ABG PH 7.26 pH Units (7.32-7.45); ABG PO2 86 mmHg (85-104); ABG TCO2 30 mEq/L (20-26); Blood Gas VT 420 cc
[2020-12-25 23:07] LABS: Hematocrit 25.6 % (35.3-44.9); Hemoglobin 7.5 g/dL (11.5-15.4)
[2020-12-26] MEDS: Vancomycin 1,250 MG/262.5 ML IV.SOLN IVPB SCH (00:19)
[2020-12-26 03:11] LABS: VBG Ionized Calcium 1.18 mmol/L (1.15-1.35)
[2020-12-26 03:14] LABS: Basophils % 0.1 %; Hematocrit 25.9 % (35.3-44.9); Hemoglobin 7.5 g/dL (11.5-15.4); Immature Granulocytes % 1.9 % (0-4); Lymphocytes # 0.6 K/mcL (0.6-4.6); Lymphocytes % 4.3 %; Mean Corpuscular Hemoglobin 26.8 pg (28.0-33.3); Mean Corpuscular Volume 92.5 fL (83.0-100.0); Mean Platelet Volume 10.5 fL (9.4-12.4); Monocytes # 0.5 K/mcL (0.0-1.3); Monocytes % 3.6 %; Neutrophils # 12.3 K/mcL (1.6-8.9); Platelet Count 289 K/mcL (140-400); Segmented Neutrophils % 90.1 %; White Blood Count 13.7 K/mcL (4.3-11.1)
[2020-12-26] MEDS: Artificial Tears SOLN 15 ML BOTTLE BOTH EYES SCH ×5 (03:24→20:35)
[2020-12-26] MEDS: Ipratropium/Albuterol Neb 3 ML IH SCH ×4 (03:29→16:04)
[2020-12-26 03:33] LABS: INR 4.9; Phosphorous 4.1 mg/dL (2.7-4.5)
[2020-12-26 03:34] LABS: Bilirubin,Total 0.3 mg/dL (0.3-1.0); Potassium 4.7 mEq/L (3.5-5.1)
[2020-12-26 03:35] LABS: Albumin 2.7 g/dL (3.5-5.7); Albumin/Globulin Ratio 1.1 (1.1-2.2); Globulin 2.5 g/dL (2.4-3.5); Total Protein 5.2 g/dL (6.4-8.9)
[2020-12-26] MEDS: FentaNYL (PF) 1,000 MCG/100 ML IV.SOLN IVC SCH ×3 (03:57→17:45)
[2020-12-26] MEDS ORDERED: *HR* Etomidate 20 MG/10 ML AMPUL IVP ONE (05:39)
[2020-12-26] MEDS ORDERED: *HR* Midazolam HCl 5 MG/5 ML VIAL IVP ONE (05:39)
[2020-12-26 05:47] LABS: ABG Base Excess 1 mEq/L (-2 to 3); ABG HCO3 29 mEq/L (21-27); ABG Oxygen Saturation 95 % (95-98); ABG PCO2 62 mmHg (35-45); ABG PH 7.27 pH Units (7.32-7.45); ABG PO2 90 mmHg (85-104); ABG TCO2 31 mEq/L (20-26); Blood Gas Modality VC; Blood Gas VT 420 cc
[2020-12-26] MEDS: MethylPREDNISolone 40 MG/ML VIAL IVP SCH (05:47)
[2020-12-26] MEDS: Cefepime HCl 2,000 MG in Water for inj. (sterile) 20 ML IVP SCH (05:47)
[2020-12-26] MEDS: Docusate Oral Soln 100 MG/10 ML UDC GTUBE SCH (08:09)
[2020-12-26] MEDS: Chlorhexidine Rinse 15 ML MOUTHWASH MM SCH ×2 (08:09→20:35)
[2020-12-26] MEDS: Aspirin 81 MG TAB.CHEW PO SCH (08:09)
[2020-12-26] MEDS: Pantoprazole 40 MG VIAL IVP SCH (08:10)
[2020-12-26] MEDS ORDERED: Furosemide 40 MG/4 ML VIAL ONE (13:16)
[2020-12-26] MEDS ORDERED: Furosemide 40 MG/4 ML VIAL IVP ONE (13:51)
[2020-12-26] MEDS: Sodium Bicarbonate 150 MEQ in D5% in Water 1,000 ML IVC SCH (13:53)
[2020-12-26] MEDS ORDERED: *HR* Metoprolol 5 MG/5 ML VIAL IVP SCH (14:00)
[2020-12-26] MEDS ORDERED: Norepinephrine 4 MG/254 ML IV.SOLN IVC SCH (14:15)
[2020-12-26] MEDS ORDERED: *HR* EPINEPHrine 1 MG/10 ML SYRINGE INTRATRACH PRN (14:26)
[2020-12-26] MEDS ORDERED: *HR* EPINEPHrine 1 MG/10 ML SYRINGE ONE (14:29)
[2020-12-26] MEDS ORDERED: Scopolamine Patch 1.5 MG PATCH.TD72 TD SCH (15:30)
[2020-12-26 16:07] VITALS: BP 111/58
[2020-12-26 16:16] VITALS: TEMP 96.9
[2020-12-26] MEDS: *HR* LORazepam 2 MG/ML VIAL IVP PRN ×5 (16:49→23:33)
[2020-12-26 18:12] VITALS: PULSE 83
[2020-12-26 19:57] VITALS: O2SAT 61
[2020-12-27] MEDS: Artificial Tears SOLN 15 ML BOTTLE BOTH EYES SCH ×2 (00:10→05:49)
[2020-12-27] MEDS: FentaNYL (PF) 1,000 MCG/100 ML IV.SOLN IVC SCH (01:25)
[2020-12-29] MEDS ORDERED: Levothyroxine 25 MCG TABLET PO SCH (06:30)
== END 2020-12-27 05:40 | disposition expired | DRG 853 ==
LOC: 2ANU 12:26 → EMEROOARM 12:26 → 2ANU 17:10 → ICNU 12-23 20:13
PROVIDERS: ADMIT Internal Medicine; ATTEND Internal Medicine